=== PATIENT | female | born 1955 | race Caucasian/White ===

== ENCOUNTER 2019-03-05 18:38 | Observation (INO) | payer MEDICAID ==
--- NOTE | 2019-03-05 19:29 | ERPHSYRPT ---
- History of Present Illness Time Seen by Provider: 03/05/19 19:25 Source: patient, family Exam Limitations: no limitations Physician History: pt has noted lower BP recently and they decreased her lasix but has hx of arrythmias - no CP , no SOB no ABd pain - does have MS without change; Timing/Duration: today Activities at Onset: none Quality: other (no pain just low B{P) Location: other (no location no pain) Chest Pain Radiation: no radiation Severity of Pain-Max: none Severity of Pain-Current: none Nitro Today/Relief: no nitro taken today Aspirin Treatment Today: no aspirin today Associated Symptoms: syncope, weakness Prior Chest Pain/Cardiac Workup: no prior chest pain Allergies/Adverse Reactions: amoxicillin trihydrate [From Augmentin] Allergy (Severe, Verified 03/05/19 19:23 ) cefaclor [From Ceclor] Allergy (Severe, Verified 06/08/15 13:57) syncope levofloxacin [From Levaquin] Allergy (Severe, Verified 06/08/15 13:57) syncope potassium clavulanate [From Augmentin] Allergy (Severe, Verified 03/05/19 19:23) Cephalosporins Allergy (Mild, Verified 06/08/15 13:57) doxycycline Allergy (Mild, Verified 06/08/15 13:57) sertraline HCl [From Zoloft] Allergy (Mild, Verified 06/08/15 13:57) sulfamethoxazole [From Bactrim] Allergy (Verified 06/08/15 13:57) trimethoprim [From Bactrim] Allergy (Verified 06/08/15 13:57) Home Medications: Alprazolam 0.5 mg [xanAX 0.5 MG] 0.5 mg PO BID 02/28/13 [History] Armodafinil [Nuvigil] 150 mg PO DAILY PRN PRN 02/28/13 [History] Baclofen 10 mg [Lioresal 10 mg] 10 mg PO DAILY 02/28/13 [History] Cetirizine HCl [Zyrtec] 10 mg PO DAILY 02/28/13 [History] Chlorhexidine Gluconate [Peridex] 15 ml MM HS 02/28/13 [History] Cholecalciferol (Vitamin D3) [Vitamin D] 2,000 unit PO DAILY 02/28/13 [ History] Diltiazem HCl 180 mg [Cardizem CD 180 MG] 180 mg PO HS 02/28/13 [History] Docusate Sodium [Doc-Q-Lace] 200 mg PO HS 02/28/13 [History] Estrogens, Conjugated [Premarin] 0.3 mg PO DAILY 02/28/13 [History] Fluoxetine HCl [Prozac] 80 mg PO DAILY 02/28/13 [History] Gabapentin 800 mg PO BID 02/28/13 [History] Interferon Beta-1A/Albumin [Rebif 22 Mcg/0.5 ml Syringe] 22 mcg SQ 3XW 02/28/13 [History] Magnesium Oxide 400 mg [Mag-Ox 400] 800 mg PO DAILY 02/28/13 [History] Multivitamin W-Minerals/Lutein [Centrum Silver Tablet] 1 each PO DAILY 02/28/13 [History] Baggs-3 Fatty Acids/Fish Oil [Fish Oil 1,000 mg Capsule] 1,000 mg PO DAILY 02/28/13 [History] Oxybutynin Chloride 5 mg [Ditropan 5 MG] 5 mg PO DAILY PRN PRN 02/28/13 [ History] Pyridoxine HCl 100 mg [Vitamin B-6 (Pyridoxine) 100 MG] 100 mg PO DAILY [History] Simvastatin 20Mg [Zocor 20Mg] 20 mg PO HS 02/28/13 [History] Ascorbic Acid [Vitamin C] 1,000 mg PO DAILY 05/26/14 [History] Budesonide/Formoterol Fumarate [Symbicort 160-4.5 Mcg Inhaler] 2 puffs IH BID [History] Calcium Carb & Citrate/Vit D3 [Calcium + Vitamin D3 Caplet] 1 each PO HS [History] Fluconazole [Diflucan] 200 mg PO WEEKLY 05/26/14 [History] Hydrocodon/Ibupr 7.5mg/200mg [Vicoprofen 7.5mg/200mg Tablet] 1 tab PO BIDPRN 05/26/14 [History] Liothyronine Sodium 5 mcg PO DAILY 05/26/14 [History] Metformin HCl 500 mg [Glucophage 500 MG] 500 mg PO .3X/WEEK 05/26/14 [ History] Nystatin/TCN/Hc/Diphenhydram [Char's Magic Mouthwash] 5 ml PO QID PRN PRN 05/26/14 [History] Prednisone 5 mg [Deltasone 5 mg] 5 - 10 mg PO DAILY PRN PRN 05/26/14 [ History] Terconazole Vaginal 45 gm [Terazol 7 VAGINAL] 45 gm VAG DAILY 05/26/14 [ History] Triamterene/Hydrochlorothiazid [Triamterene-Hctz 37.5-25 mg Cp] 1 each PO DAILY PRN PRN 05/26/14 [History] Trimethoprim 100 mg PO HS 10/29/14 [History] Albuterol 8 gm Mdi Hfa [Ventolin Hfa MDI] 1 puff IH Q6H PRN PRN 06/08/15 [ History] Levothyroxine Sodium 137 mcg PO DAILY 06/08/15 [History] Oxycodone HCl 5 mg Ir [Oxy-IR 5 MG] 10 mg PO Q8H PRN PRN 06/08/15 [History ] Tamsulosin HCl 0.4 mg [Flomax 0.4 MG] 0.4 mg PO HS 06/08/15 [History] Hx Tetanus, Diphtheria Vaccination/Date Given: No Hx Influenza Vaccination/Date Given: Yes (2013) Hx Pneumococcal Vaccination/Date Given: No - Review of Systems Constitutional: Weakness, No Fever, No Chills Eyes: No Symptoms Ears, Nose, & Throat: No Symptoms Respiratory: No Cough, No Dyspnea Cardiac: No Chest Pain, No Edema, No Syncope Abdominal/Gastrointestinal: No Abdominal Pain, No Nausea, No Vomiting, No Diarrhea Genitourinary Symptoms: No Dysuria Musculoskeletal: No Back Pain, No Neck Pain Skin: No Rash Neurological: Dizziness, No Focal Weakness, No Sensory Changes Psychological: No Symptoms Endocrine: No Symptoms Hematologic/Lymphatic: No Symptoms Immunological/Allergic: Other (MS) All Other Systems: Reviewed and Negative - Past Medical History Pertinent Past Medical History: Yes Neurological History: Other ENT History: Other Cardiac History: Other Respiratory History: Asthma, COPD Endocrine Medical History: Diabetes Type II Musculoskeletal History: Other GI Medical History: No Pertinent History History: Other Psycho-Social History: Depression Female Reproductive Disorders: No Pertinent History Other Medical History: MS. COPD. Asthma. Pre-DM. Sinus Tachycardia. Multiple medication/abtx allergies - Past Surgical History Past Surgical History: Yes Neuro Surgical History: No Pertinent History Cardiac: No Pertinent History Respiratory: No Pertinent History Gastrointestinal: No Pertinent History Genitourinary: No Pertinent History Musculoskeletal: No Pertinent History Female Surgical History: Hysterectomy Other Surgical History: pt had thyroidectomy also had surgery on stomach where she gave her self shots for ms area had a nodular area that needed removed - Social History Smoking Status: Current every day smoker How long have you smoked: 10 Exposure to second hand smoke: No Drug Use: none Patient Lives Alone: Yes - Nursing Vital Signs Nursing Vital Signs: Initial Vital Signs Temperature 98.7 F 03/05/19 19:23 Pulse Rate 95 H 03/05/19 19:23 Respiratory Rate 16 03/05/19 19:23 Blood Pressure 95/70 03/05/19 19:23 O2 Sat by Pulse Oximetry 95 03/05/19 19:23 Pain Scale Pain Intensity 0 - Physical Exam General Appearance: no apparent distress, alert Eye Exam: PERRL/EOMI, eyes nml inspection Ears, Nose, Throat Exam: normal ENT inspection, moist mucous membranes Neck Exam: normal inspection, non-tender, supple Respiratory Exam: normal breath sounds, lungs clear, No respiratory distress Cardiovascular Exam: regular rate/rhythm, normal heart sounds, No edema Gastrointestinal/Abdomen Exam: soft, No tenderness, No mass Pelvic Exam: deferred Rectal Exam: deferred Back Exam: normal inspection, No CVA tenderness, No vertebral tenderness Extremity Exam: normal inspection, normal range of motion Neurologic Exam: alert, oriented x 3, cooperative, normal mood/affect, nml cerebellar function, sensation nml, No motor deficits Skin Exam: normal color, warm, dry Lymphatic Exam: No adenopathy - Course Nursing assessment & vital signs reviewed: Yes EKG Interpreted by Me: Sinus Rhythm, NORMAL AXIS, Non-specific ST Changes Ordered Tests: Active Orders 24 hr Category Date Time Status Finishing Supervisor STAT Care 03/05/19 19:35 Active EKG-ER Only STAT Care 03/05/19 19:30 Active IV Insertion STAT Care 03/05/19 19:30 Active CHEST 1 VIEW (PORTABLE) Stat Exams 03/05/19 19:35 Completed CBC W DIFF Stat Lab 03/05/19 20:28 Completed CMP Stat Lab 03/05/19 20:28 Completed CULTURE,URINE Stat Lab 03/05/19 23:05 Received D-DIMER QUANTITATION Stat Lab 03/05/19 20:28 Completed Lactic Acid Stat Lab 03/05/19 20:25 Completed Lactic Acid Stat Lab 03/05/19 22:29 Ordered NT PRO BNP Stat Lab 03/05/19 20:28 Completed TROPONIN Q3H Lab 03/05/19 22:45 Ordered TROPONIN Q3H Lab 03/06/19 01:45 Ordered TROPONIN Q3H Lab 03/06/19 04:45 Ordered TROPONIN Q3H Lab 03/06/19 07:45 Ordered TROPONIN Stat Lab 03/05/19 20:28 Completed UA W/RFX UR CULTURE Stat Lab 03/05/19 23:05 Completed Medication Summary Generic Name Dose Route Start Last Admin Trade Name Freq PRN Reason Stop Dose Admin Aztreonam 1 gm in 100 mls @ 200 mls/hr 03/05/19 23:31 Azactam 1 Gm/100 Ml D5w IV 03/06/19 00:00 STAT STA Discontinued Medications Generic Name Dose Route Start Last Admin Trade Name Freq PRN Reason Stop Dose Admin Sodium Chloride 1,000 mls @ 999 mls/hr 03/05/19 19:30 03/05/19 20:01 Sodium Chloride 0.9% 1000 Ml IV 03/05/19 20:30 999 mls/hr .Q1H1M STA Administration Sodium Chloride Confirm 03/05/19 19:56 Sodium Chloride 0.9% 1000 Ml Administered 03/05/19 19:57 Dose 1,000 mls @ ud .ROUTE .K-MED ONE Lab/Rad Data: Laboratory Result Diagrams 03/05/19 20:28 03/05/19 20:28 Laboratory Results 03/05/19 03/05/19 03/05/19 Range/Units 23:05 20:28 20:28 WBC (4.0-10.5) K/mm3 RBC (4.1-5.4) M/mm3 Hgb (12.0-16.0) gm/dl Hct (35-47) % MCV (78-100) fl MCH (26-32) pg MCHC (32-36) g/dl RDW (11.5-14.0) % Plt Count (150-450) K/mm3 MPV (6-9.5) fl Gran % (36.0-66.0) % Eos # (Auto) (0-0.5) Absolute Lymphs (auto) (1.0-4.6) Absolute Monos (auto) (0.0-1.3) Lymphocytes % (24.0-44.0) % Monocytes % (0.0-12.0) % Eosinophils % (0.00-5.0) % Basophils % (0.0-0.4) % Absolute Granulocytes (1.4-6.9) Basophils # (0-0.4) D-Dimer 251 (215-500) ng/mL Sodium 140 (137-145) mmol/L Potassium 4.3 (3.5-5.1) mmol/L Chloride 106 (98-107) mmol/L Carbon Dioxide 20 L (22-30) mmol/L Anion Gap 17.7 H (5-15) MEQ/L BUN 18 H (7-17) mg/dL Creatinine 1.06 H (0.52-1.04) mg/dL Estimated GFR 56.0 ML/MIN Glucose 96 (74-106) mg/dL Lactic Acid (0.4-2.0) Calcium 10.7 H (8.4-10.2) mg/dL Total Bilirubin 0.50 (0.2-1.3) mg/dL AST 55 H (14-36) U/L ALT 27 (0-35) U/L Alkaline Phosphatase 103 (38-126) U/L Troponin I < 0.012 (0.000-0.034) ng/mL NT-Pro-B Natriuret Pep 108 (0-900) pg/mL Serum Total Protein 7.6 (6.3-8.2) g/dL Albumin 4.2 (3.5-5.0) g/dL Urine Color YELLOW (YELLOW) Urine Appearance CLOUDY (CLEAR) Urine pH 6.0 (5-6) Ur Specific [place] 1.013 (1.005-1.025) Urine Protein NEGATIVE (Negative) Urine Ketones NEGATIVE (NEGATIVE) Urine Blood NEGATIVE (0-5) Wili/ul Urine Nitrite POSITIVE (NEGATIVE) Urine Bilirubin NEGATIVE (NEGATIVE) Urine Urobilinogen NEGATIVE (0-1) mg/dL Ur Leukocyte Esterase LARGE (NEGATIVE) Urine WBC (Auto) >100 (0-5) /HPF Urine RBC (Auto) 6-10 (0-2) /HPF U Hyaline Cast (Auto) 11-25 (0-2) /LPF U Epithel Cells (Auto) RARE (FEW) /HPF Urine Bacteria (Auto) FEW (NEGATIVE) /HPF Urine Mucus (Auto) SLIGHT (NEGATIVE) /HPF Urine Yeast (Budding) Many (NEGATIVE) /HPF Urine Culture Reflexed YES (NO) Urine Glucose NEGATIVE (NEGATIVE) mg/dL 03/05/19 03/05/19 Range/Units 20:28 20:25 WBC 8.3 (4.0-10.5) K/mm3 RBC 4.61 (4.1-5.4) M/mm3 Hgb 13.8 (12.0-16.0) gm/dl Hct 42.4 (35-47) % MCV 92.0 (78-100) fl MCH 29.9 (26-32) pg MCHC 32.5 (32-36) g/dl RDW 14.5 H (11.5-14.0) % Plt Count 283 (150-450) K/mm3 MPV 10.7 H (6-9.5) fl Gran % 54.4 (36.0-66.0) % Eos # (Auto) 0.15 (0-0.5) Absolute Lymphs (auto) 2.94 (1.0-4.6) Absolute Monos (auto) 0.67 (0.0-1.3) Lymphocytes % 35.5 (24.0-44.0) % Monocytes % 8.1 (0.0-12.0) % Eosinophils % 1.8 (0.00-5.0) % Basophils % 0.2 (0.0-0.4) % Absolute Granulocytes 4.50 (1.4-6.9) Basophils # 0.02 (0-0.4) D-Dimer (215-500) ng/mL Sodium (137-145) mmol/L Potassium (3.5-5.1) mmol/L Chloride (98-107) mmol/L Carbon Dioxide (22-30) mmol/L Anion Gap (5-15) MEQ/L BUN (7-17) mg/dL Creatinine (0.52-1.04) mg/dL Estimated GFR ML/MIN Glucose (74-106) mg/dL Lactic Acid 2.8 H (0.4-2.0) Calcium (8.4-10.2) mg/dL Total Bilirubin (0.2-1.3) mg/dL AST (14-36) U/L ALT (0-35) U/L Alkaline Phosphatase (38-126) U/L Troponin I (0.000-0.034) ng/mL NT-Pro-B Natriuret Pep (0-900) pg/mL Serum Total Protein (6.3-8.2) g/dL Albumin (3.5-5.0) g/dL Urine Color (YELLOW) Urine Appearance (CLEAR) Urine pH (5-6) Ur Specific [place] (1.005-1.025) Urine Protein (Negative) Urine Ketones (NEGATIVE) Urine Blood (0-5) Wili/ul Urine Nitrite (NEGATIVE) Urine Bilirubin (NEGATIVE) Urine Urobilinogen (0-1) mg/dL Ur Leukocyte Esterase (NEGATIVE) Urine WBC (Auto) (0-5) /HPF Urine RBC (Auto) (0-2) /HPF U Hyaline Cast (Auto) (0-2) /LPF U Epithel Cells (Auto) (FEW) /HPF Urine Bacteria (Auto) (NEGATIVE) /HPF Urine Mucus (Auto) (NEGATIVE) /HPF Urine Yeast (Budding) (NEGATIVE) /HPF Urine Culture Reflexed (NO) Urine Glucose (NEGATIVE) mg/dL - Progress Progress: improved, re-examined Air Movement: good Progress Note: 03/05/19 23:38 discussed with pt and Dr logan covering and will place on obs to begin ab and recheck labs monitor BP, pt appears to have had mild urosepsis, and does not seem to be septic to benefit from the full protocol Blood Culture(s) Obtained: No Antibiotics given: No Discussed with : Adarsh Will see patient in: hospital (observation) Counseled pt/family regarding: lab results, diagnosis, need for follow-up, rad results - Departure Departure Disposition: Observation Clinical Impression: UTI (urinary tract infection), hypotension/near syncope Condition: Good Critical Care Time: Yes Critical Care Time(excluding separately billable procedures): 30-74 minutes ( for IVF bolus and cardiac monitoring to determine cause for hypotension) Referrals: SARA CARRASCO [Primary Care Provider] -
[2019-03-05] MEDS ORDERED: Sodium Chloride 0.9% 1000 ML 1,000 ML IV STA (19:30)
[2019-03-05] MEDS ORDERED: Sodium Chloride 0.9% 1000 ML 1,000 ML ONE (19:56)
[2019-03-05 20:23] LABS: BASOPHIL % 0.2 % (0.0-0.4); Basophil (Absolute #) 0.02 (0-0.4); Eosinophil % 1.8 % (0.00-5.0); Eosinophil (Absolute #) 0.15 (0-0.5); Granulocytes % 54.4 % (36.0-66.0); Hematocrit 42.4 % (35-47); Hemoglobin 13.8 gm/dl (12.0-16.0); Lymphocyte (Absolute #) 2.94 (1.0-4.6); Lymphocytes % 35.5 % (24.0-44.0); Mean Corpuscular Hemoglobin 29.9 pg (26-32); Mean Corpuscular Hgb Concent. 32.5 g/dl (32-36); Mean Platelet Volume 10.7 fl (6-9.5); Monocyte (Absolute #) 0.67 (0.0-1.3); Monocytes % 8.1 % (0.0-12.0); Platelet Count 283 K/mm3 (150-450); Red Blood Count 4.61 M/mm3 (4.1-5.4); Red Cell Distribution Width 14.5 % (11.5-14.0); White Blood Count 8.3 K/mm3 (4.0-10.5)
[2019-03-05 20:29] LABS: Lactic Acid 2.8 (0.4-2.0)
[2019-03-05 20:45] LABS: NT PRO BNP 108 pg/mL (0-900)
[2019-03-05 20:46] LABS: ALBUMIN 4.2 g/dL (3.5-5.0); ALKALINE PHOSPHATASE 103 U/L (38-126); ANION GAP 17.7 MEQ/L (5-15); BLOOD UREA NITROGEN 18 mg/dL (7-17); CHLORIDE 106 mmol/L (98-107); Calcium 10.7 mg/dL (8.4-10.2); Carbon Dioxide 20 mmol/L (22-30); Creatinine 1 1.06 mg/dL (0.52-1.04); Glucose 96 mg/dL (74-106); Potassium 4.3 mmol/L (3.5-5.1); SGOT/AST 55 U/L (14-36); SGPT/ALT 27 U/L (0-35); SODIUM 140 mmol/L (137-145); Total Protein 7.6 g/dL (6.3-8.2)
[2019-03-05 20:47] LABS: TROPONIN < 0.012 ng/mL (0.000-0.034)
--- NOTE | 2019-03-05 20:54 | XRAY ---
Indication: Dizziness. Comparison: July 20, 2018. Portable chest remains clear. Heart is not enlarged. Bony thorax again demonstrates mild degenerative changes, old right clavicle fracture, and proximal right humerus enchondroma. No new/acute findings.
[2019-03-05 23:17] LABS: Appearance CLOUDY (CLEAR); Bacteria FEW /HPF (NEGATIVE); Bilirubin NEGATIVE (NEGATIVE); Blood NEGATIVE Ery/ul (0-5); Epithelial Cells RARE /HPF (FEW); Glucose NEGATIVE (NEGATIVE); Ketones NEGATIVE (NEGATIVE); Leukocyte Esterase LARGE (NEGATIVE); Mucus SLIGHT /HPF (NEGATIVE); Nitrite POSITIVE (NEGATIVE); Protein,Urine Dip NEGATIVE (Negative); Specific Gravity 1.013 (1.005-1.025); Urobilinogen NEGATIVE mg/dL (0-1); WBC >100 /HPF (0-5)
[2019-03-05 23:18] LABS: Budding Yeast Many /HPF (NEGATIVE)
[2019-03-05] MEDS ORDERED: Azactam 1 GM/100 ML D5W 1 GM/100 ML IVPB IV STA (23:31)
[2019-03-06] MEDS ORDERED: Zofran 4 MG/2 ML VIAL IV PRN (00:36)
[2019-03-06] MEDS ORDERED: TYLENOL 325 MG PO PRN (00:36)
[2019-03-06] MEDS ORDERED: NovoLIN R SQ PRN (00:36)
[2019-03-06] MEDS: Nicoderm CQ 21 MG TOP SCH (01:37)
[2019-03-06] MEDS: Sodium Chloride 0.9% 1000 ML 1,000 ML IV SCH ×3 (01:38→22:42)
[2019-03-06 05:42] LABS: BASOPHIL % 0.3 % (0.0-0.4); Basophil (Absolute #) 0.02 (0-0.4); Eosinophil % 2.8 % (0.00-5.0); Eosinophil (Absolute #) 0.19 (0-0.5); Granulocyte Absolute (ANC) 2.57 (1.4-6.9); Granulocytes % 37.8 % (36.0-66.0); Hematocrit 37.1 % (35-47); Hemoglobin 12.1 gm/dl (12.0-16.0); Lymphocyte (Absolute #) 3.34 (1.0-4.6); Mean Cell Volume 93.9 fl (78-100); Mean Corpuscular Hemoglobin 30.6 pg (26-32); Mean Corpuscular Hgb Concent. 32.6 g/dl (32-36); Mean Platelet Volume 10.4 fl (6-9.5); Monocyte (Absolute #) 0.69 (0.0-1.3); Monocytes % 10.1 % (0.0-12.0); Platelet Count 232 K/mm3 (150-450); Red Blood Count 3.95 M/mm3 (4.1-5.4); Red Cell Distribution Width 14.3 % (11.5-14.0); White Blood Count 6.8 K/mm3 (4.0-10.5)
[2019-03-06] MEDS ORDERED: Azactam 1 GM/100 ML D5W 1 GM/100 ML IVPB IV SCH (06:00)
[2019-03-06 06:01] LABS: ALBUMIN 3.3 g/dL (3.5-5.0); Calcium 9.6 mg/dL (8.4-10.2); Carbon Dioxide 25 mmol/L (22-30); Creatinine 1 0.79 mg/dL (0.52-1.04); Glucose 92 mg/dL (74-106); SGPT/ALT 22 U/L (0-35); SODIUM 140 mmol/L (137-145); Total Protein 6.2 g/dL (6.3-8.2)
[2019-03-06 06:02] LABS: ALKALINE PHOSPHATASE 79 U/L (38-126); CHLORIDE 109 mmol/L (98-107); SGOT/AST 43 U/L (14-36)
[2019-03-06 06:05] LABS: BLOOD UREA NITROGEN 16 mg/dL (7-17)
[2019-03-06 06:10] LABS: ANION GAP 10 MEQ/L (5-15)
[2019-03-06] MEDS ORDERED: PROVENTIL COMMON CANISTER IH PRN (07:00)
[2019-03-06] MEDS: Advair Hfa 230/21 Mcg COMMON CANISTER IH SCH ×2 (07:30→20:03)
[2019-03-06] MEDS: DUONEB 0.5-3 MG/3 ml Neb IH SCH ×3 (07:30→20:02)
[2019-03-06] MEDS: Azactam 1 GM/100 ML D5W 1 GM/100 ML IVPB IV SCH ×3 (08:15→23:30)
[2019-03-06] MEDS ORDERED: Mobic 7.5 MG PO SCH (10:00)
[2019-03-06] MEDS ORDERED: Ventolin Hfa MDI IH PRN (10:11)
[2019-03-06] MEDS ORDERED: Norco 10/325 MG Tablet PO PRN (10:11)
[2019-03-06] MEDS ORDERED: ALCAFTADINE OP PRN (10:11)
[2019-03-06] MEDS ORDERED: Atrovent HFA MDI IH PRN (10:11)
[2019-03-06] MEDS ORDERED: MEDICATION INTERVENTION MC SCH ×4 (11:15)
[2019-03-06] MEDS: CLARITIN 10 MG PO SCH (11:28)
[2019-03-06] MEDS: DELTASONE 5 MG PO SCH (11:28)
[2019-03-06] MEDS: Pepcid 20 MG PO SCH ×2 (11:29→22:44)
[2019-03-06] MEDS: Glucophage 500 MG PO SCH (11:29)
[2019-03-06] MEDS: Flonase NASAL NS SCH (11:29)
[2019-03-06] MEDS: Ditropan 5 MG PO SCH ×2 (11:29→22:44)
[2019-03-06] MEDS: SYNTHROID 150 MCG PO SCH (11:30)
[2019-03-06] MEDS: Singulair 10 MG PO SCH (11:30)
[2019-03-06] MEDS: Norco 10/325 MG Tablet PO PRN ×2 (12:33→19:52)
[2019-03-06] MEDS ORDERED: NON-FORMULARY ITEM (Budesonide/Formoterol Fumarate [Symbicort 160-4.5 Mcg Inhaler] 2 PUFFS IH SCH (22:00)
[2019-03-06] MEDS ORDERED: RANITIDINE HCL 150 MG PO SCH (22:00)
[2019-03-06] MEDS: Colace 100 MG PO SCH (22:44)
[2019-03-06] MEDS: ZOCOR 20MG PO SCH (22:44)
[2019-03-07] MEDS: DUONEB 0.5-3 MG/3 ml Neb IH SCH ×4 (00:16→19:21)
[2019-03-07] MEDS: Nicoderm CQ 21 MG TOP SCH (03:57)
[2019-03-07] MEDS: Advair Hfa 230/21 Mcg COMMON CANISTER IH SCH ×2 (07:45→19:21)
[2019-03-07] MEDS: Azactam 1 GM/100 ML D5W 1 GM/100 ML IVPB IV SCH ×3 (07:49→23:24)
[2019-03-07] MEDS: Glucophage 500 MG PO SCH (07:50)
[2019-03-07] MEDS ORDERED: FLUOXETINE HCL 80 MG PO SCH (10:00)
[2019-03-07] MEDS ORDERED: ESTROGENS CONJUGATED INTRAVAGIN SCH (10:00)
[2019-03-07] MEDS ORDERED: LIOTHYRONINE SODIUM 5 MCG PO SCH (10:00)
[2019-03-07] MEDS ORDERED: ESTROGENS CONJUGATED 0.3 MG PO SCH (10:00)
[2019-03-07] MEDS ORDERED: NON-FORMULARY ITEM (Cetirizine Hcl [Zyrtec] 10 MG) PO SCH (10:00)
[2019-03-07] MEDS ORDERED: NON-FORMULARY ITEM (Potassium Chloride [K-Dur] 20 MEQ) PO SCH (10:00)
[2019-03-07] MEDS: Sodium Chloride 0.9% 1000 ML 1,000 ML IV SCH ×2 (10:10→20:15)
[2019-03-07] MEDS: Flonase NASAL NS SCH (10:14)
[2019-03-07] MEDS: Prozac 20 MG PO SCH (10:15)
[2019-03-07] MEDS: Klor Con 10 MEQ PO SCH (10:16)
[2019-03-07] MEDS: SYNTHROID 150 MCG PO SCH (10:16)
[2019-03-07] MEDS: Pepcid 20 MG PO SCH ×2 (10:17→21:48)
[2019-03-07] MEDS: Ditropan 5 MG PO SCH ×2 (10:17→21:48)
[2019-03-07] MEDS: CLARITIN 10 MG PO SCH (10:17)
[2019-03-07] MEDS: Singulair 10 MG PO SCH (10:18)
[2019-03-07] MEDS: DELTASONE 5 MG PO SCH (10:18)
--- NOTE | 2019-03-07 11:34 | PCM.NOTE ---
Date and Time: 03/07/19 1130 Subjective Assessment: Pt is feeling better. Heavenly po. - Review of Systems Constitutional: No Fever Respiratory: No Cough Abdominal/Gastrointestinal: No Vomiting Objective Exam General Appearance: no apparent distress, alert Neurologic Exam: oriented x 3, cooperative Skin Exam: normal color, warm, dry, No rash Ears, Nose, Throat Exam: moist mucous membranes Respiratory Exam: diminished breath sounds (good air exchange), prolonged expirations, No crackles/rales, No rhonchi, No wheezing Cardiovascular Exam: regular rate/rhythm, normal heart sounds, No murmur Gastrointestinal/Abdomen Exam: soft, normal bowel sounds, No tenderness, No distention, No mass, No guarding, No rebound Extremity Exam: normal inspection, No pedal edema, No swelling Back Exam: normal inspection, No rash OBJECTIVE DATA Vital Signs: Vital Signs - 24 hr Temp Pulse Resp BP Pulse Ox 03/07/19 07:45 86 18 96 03/07/19 07:34 97.8 F 67 20 126/60 96 03/07/19 04:10 98.7 F 71 18 144/69 97 03/07/19 00:25 98.6 F 98 H 19 137/74 97 03/07/19 00:18 74 24 96 03/06/19 20:20 98.9 F 84 26 H 127/65 95 03/06/19 20:04 68 20 97 03/06/19 15:58 98 F 68 20 126/80 98 03/06/19 14:03 68 18 97 Pain Assessment - Last Documented Pain Intensity 0 Pain Scale Used 0-10 Pain Scale Intake and Output: Intake & Output 03/04/19 03/05/19 03/06/19 03/07/19 11:59 11:59 11:59 11:59 Intake Total 687 4423 Output Total 450 4700 Balance 237 -277 Weight 73.5 kg 80.2 kg Lab Results: Accuchecks Date 03/06/19 Time 22:00 Accucheck Value: 101 Accucheck Value: 106 Accucheck Value: 157 Radiology Exams: Radiology Procedures Category Date Time Status CHEST 1 VIEW (PORTABLE) Stat Exams 03/05/19 19:35 Completed Assessment/Plan (1) UTI (urinary tract infection) Current Visit: Yes Status: Acute Qualifiers: Urinary tract infection type: acute cystitis Hematuria presence: without hematuria Qualified Code(s): N30.00 - Acute cystitis without hematuria Assessment & Plan: On day #2 of aztreonam. Advised would like her to get 3 days of IV antibiotics. Tomorrow will decide which antibiotic is best - pt with multiple allergies to antibiotics. Culture is negative so far. Code(s): N39.0 - URINARY TRACT INFECTION, SITE NOT SPECIFIED (2) Hypotension Current Visit: Yes Status: Resolved Qualifiers: Hypotension type: other hypotension type Qualified Code(s): I95.89 - Other hypotension Assessment & Plan: Likely related to early urosepsis. BP 120s-130s systolic since admission and treatment. Code(s): I95.9 - HYPOTENSION, UNSPECIFIED (3) COPD (chronic obstructive pulmonary disease) Current Visit: No Status: Chronic Qualifiers: COPD type: chronic bronchitis Assessment & Plan: stable currently, without exacerbation. (4) DVT prophylaxis Current Visit: Yes Status: Acute Assessment & Plan: Start lovenox 40mg SQ daily. Code(s): Z29.9 - ENCOUNTER FOR PROPHYLACTIC MEASURES, UNSPECIFIED
[2019-03-07] MEDS: ENOXAPARIN SODIUM SQ SCH (12:26)
[2019-03-07] MEDS: Norco 10/325 MG Tablet PO PRN ×2 (14:04→20:09)
[2019-03-07] MEDS: Colace 100 MG PO SCH (21:48)
[2019-03-07] MEDS: ZOCOR 20MG PO SCH (21:49)
[2019-03-08] MEDS: DUONEB 0.5-3 MG/3 ml Neb IH SCH ×2 (03:18→07:40)
[2019-03-08] MEDS: Nicoderm CQ 21 MG TOP SCH (06:50)
[2019-03-08] MEDS: Sodium Chloride 0.9% 1000 ML 1,000 ML IV SCH (06:50)
[2019-03-08] MEDS: Advair Hfa 230/21 Mcg COMMON CANISTER IH SCH (07:41)
--- NOTE | 2019-03-08 08:57 | PCM.DS ---
Discharge Summary Date of Admission: 03/06/19 00:31 Admitting Physician: SARA CARRASCO Primary Care Provider: SARA CARRASCO Allergies Allergies amoxicillin trihydrate [From Augmentin] Allergy (Severe, Verified 03/06/19 02:06 ) cefaclor [From Ceclor] Allergy (Severe, Verified 03/06/19 02:06) syncope levofloxacin [From Levaquin] Allergy (Severe, Verified 03/06/19 02:06) syncope potassium clavulanate [From Augmentin] Allergy (Severe, Verified 03/06/19 02:06) Cephalosporins Allergy (Mild, Verified 03/06/19 02:06) doxycycline Allergy (Mild, Verified 03/06/19 02:06) sertraline HCl [From Zoloft] Allergy (Mild, Verified 03/06/19 02:06) sulfamethoxazole [From Bactrim] Allergy (Verified 03/06/19 02:06) trimethoprim [From Bactrim] Allergy (Verified 03/06/19 02:06) Hospital Summary - Hospital Course Hospital Course: Pt is 63 yo female with MS, COPD, and DM who was admitted through ER with hypotension and found to have UTI. Her BP stabilized early with treatment. She was started on aztreonam since she has multiple antibiotic allergies. Her urine culture is growing gram negative rods. She will finish her 3rd day of aztreonam today then be discharged to home on bactrim - this is listed on her allergy list, but we believe she recently had bactrim and took each pill with a benadryl and did fine. Will have her finish 7d total of antibiotc. She is tolerating po well, getting up out of bed without assistance, and ready to discharge to home. - Vitals & Intake/Output Vital Signs: Vital Signs Temperature 98.4 F 03/08/19 07:35 Pulse Rate 74 03/08/19 07:41 Respiratory Rate 12 03/08/19 07:41 Blood Pressure 146/79 03/08/19 07:35 O2 Sat by Pulse Oximetry 96 03/08/19 07:41 Intake & Output: Intake & Output 03/05/19 03/06/19 03/07/19 03/08/19 11:59 11:59 11:59 11:59 Intake Total 464 9980 4056 Output Total 970 8820 9581 Balance 020 -845 -806 Weight 73.5 kg 80.2 kg 73.3 kg - Lab Result Diagrams: 03/06/19 05:20 03/06/19 05:20 Lab Results-Last 24 Hrs: Accuchecks Date 03/08/19 Date 03/08/19 Time 07:30 Time 22:00 Accucheck Value: 83 Accucheck Value: 106 Accucheck Value: 104 Accucheck Value: 105 Micro Results-Entire Visit: Microbiology 03/05/19 23:05 Urine Culture - Preliminary Clean Catch Midstream GRAM NEGATIVE ID AND SENSITIVITY PENDING Accuchecks Date 03/08/19 Date 03/08/19 Time 07:30 Time 22:00 Accucheck Value: 83 Accucheck Value: 106 Accucheck Value: 104 Accucheck Value: 105 - Procedures and Test Procedures and Tests throughout Hospitalization: Therapy Orders & Screens 03/06/19 01:31 Smoking Cessation Education Comment: Diagnosis: UTI with Hypotension/near syncope Smoking Status: Current every day smoker How long have you smoked: 43 years Have you smoked in the past 12 months: Yes Approximately how many cigarettes per day: 1/2 pk Do you dip or chew tobacco: No 03/06/19 03:44 Respiratory Therapy Assessment DAILY Comment: Diagnosis: UTI with Hypotension/near syncope 03/06/19 09:30 Peak Expiratory Flow Rate ONCE Comment: Reason For Exam: Diagnosis: UTI with Hypotension/near syncope Discharge Exam General Appearance: no apparent distress, alert Neurologic Exam: oriented x 3, cooperative Eye Exam: eyes nml inspection Ears, Nose, Throat Exam: moist mucous membranes Respiratory Exam: normal breath sounds, lungs clear, prolonged expirations, wheezing (faint, scattered), No crackles/rales, No rhonchi Cardiovascular Exam: regular rate/rhythm, normal heart sounds, No murmur Gastrointestinal/Abdomen Exam: soft, normal bowel sounds, No tenderness, No distention, No mass, No guarding, No rebound Back Exam: normal inspection, No rash Extremity Exam: normal inspection, No pedal edema, No swelling Skin Exam: normal color, warm, dry, No rash Final Diagnosis/Problem List - Final Discharge Diagnosis/Problem (1) UTI (urinary tract infection) Current Visit: Yes Status: Acute Assessment & Plan: Finishing 3d of aztreonam today; will send home on 4d of bactrim. This is on her allergy list, but we believe she's taken it recently with mikalyl with no issues. Any sign of a rash and she needs to stop the med and contact us right away. Code(s): N39.0 - URINARY TRACT INFECTION, SITE NOT SPECIFIED (2) COPD (chronic obstructive pulmonary disease) Current Visit: No Status: Chronic (3) DVT prophylaxis Current Visit: Yes Status: Acute Code(s): Z29.9 - ENCOUNTER FOR PROPHYLACTIC MEASURES, UNSPECIFIED - Discharge Disposition: Home, Self-Care Condition: Good Prescriptions: New Smz/Tmp Ds Tablet [Bactrim Ds Tablet] 1 tab PO BID #8 tablet Continue Baclofen 10 mg [Lioresal 10 mg] 10 mg PO DAILY Docusate Sodium [Doc-Q-Lace] 200 mg PO HS Cetirizine HCl [Zyrtec] 10 mg PO DAILY Gabapentin 800 mg PO BID Fluoxetine HCl [Prozac] 80 mg PO DAILY Magnesium Oxide 400 mg [Mag-Ox 400] 800 mg PO DAILY Simvastatin 20Mg [Zocor 20Mg] 20 mg PO HS Estrogens, Conjugated [Premarin] 0.3 mg PO DAILY Oxybutynin Chloride 5 mg [Ditropan 5 MG] 5 mg PO BID Liothyronine Sodium 5 mcg PO DAILY Metformin HCl 500 mg [Glucophage 500 MG] 500 mg PO DAILY Budesonide/Formoterol Fumarate [Symbicort 160-4.5 Mcg Inhaler] 2 puffs IH BID Fluconazole [Diflucan] 200 mg PO WEEKLY Tamsulosin HCl 0.4 mg [Flomax 0.4 MG] 0.8 mg PO HS Estrogens,Conjugated [Premarin Vaginal Cream] 1 applic INTRAVAGIN DAILY Interferon Beta-1A/Albumin [Rebif Rebidose 22 Mcg/0.5 ml] 0.5 ml SQ UD Potassium Chloride [K-Dur] 20 meq PO DAILY predniSONE [Prednisone] 2.5 mg PO DAILY Albuterol Sulfate [Albuterol Sulfate Hfa] 2 puffs IH Q4HPRN PRN PRN Reason: Shortness Of Breath/Wheezing Ipratropium [place] Hfa [Atrovent HFA MDI] 2 puff IH Q4HPRN PRN PRN Reason: Shortness Of Breath/Wheezing Fluticasone Propionate [Flonase NASAL] 1 spray IH DAILY Furosemide 20 mg [Lasix 20 mg] 20 mg PO BID Meloxicam 7.5 mg [Mobic 7.5 MG] 7.5 mg PO BID Montelukast Sodium 10 mg PO DAILY Ranitidine HCl [Taladine] 150 mg PO BID Hydrocodone/Acetaminophen [Hydrocodone-Acetamin 10-325 mg] 1 each PO Q6HPRN PRN PRN Reason: Moderate To Severe Pain Levothyroxine Sodium 150 mcg PO DAILY Alcaftadine [Lastacaft] 1 drop OP DAILY PRN PRN PRN Reason: Allergies Discontinued Trimethoprim 100 mg PO HS Additional Instructions: Stop taking potassium while on bactrim. Take bactrim with benadryl. If any rash develops while taking bactrim, stop it and contact your doctor ELY. Will send you home with a prescription for an epi pen - please have one available at all times in case of difficulty breathing due to allergic reaction. Follow up with: SARA CARRASCO [Primary Care Provider] - 03/15/19 10:15 am
[2019-03-08] MEDS: Azactam 1 GM/100 ML D5W 1 GM/100 ML IVPB IV SCH (09:10)
[2019-03-08] MEDS: Glucophage 500 MG PO SCH (09:19)
--- NOTE | 2019-03-08 09:33 | HP ---
CHIEF COMPLAINT: Weakness. HISTORY OF PRESENT ILLNESS: The patient reports that she had been feeling ill over the past couple of weeks. She was found in the emergency room to be somewhat hypotensive. She apparently had trouble with urinary tract infections in the past but apparently is allergic to all oral antibiotics that might treat urinary tract infection. PAST MEDICAL/SURGICAL HISTORY: Diabetes mellitus type 2. Chronic obstructive pulmonary disease. Depression. Asthma. Tachycardia. HOME MEDICATIONS: Extensive. Albuterol, Baclofen, Symbicort, Zyrtec, docusate sodium, Premarin p.o. and intravaginal cream, Diflucan, fluoxetine 80 mg a day, Flonase nasal spray, Lasix, gabapentin 800 mg b.i.d., hydrocodone 10/325, alpha anaferon, Atrovent, levothyroxine, magnesium, meloxicam, Metformin, Montelukast, oxybutynin, potassium, prednisone, ranitidine, Simvastatin, Tamsulosin and apparently even though she reports an allergy to the trimethoprim, apparently she takes trimethoprim 100 mg at night which reported attended use was for sleep but apparently this is likely a suppressive antibiotic for urinary tract infections. ALLERGIES: AMOXICILLIN, CEFACLOR, LEVOFLOXACIN, CEPHALOSPORIN, DOXYCYCLINE, SULFOMETOXIZOLE, TRIMETHOPRIM, ZOLOFT. PHYSICAL EXAMINATION: The patient's vital signs on admission showed her temperature to be 97.8F, pulse 95, respiratory rate 16, blood pressure 95/70. O2 saturation 95% on room air. HEENT: Normocephalic, atraumatic. Pupils equal round reactive to light. Extraocular movements intact. Oropharynx is pink and moist. NECK: Supple without lymphadenopathy, thyromegaly or JVD. CHEST: Clear to auscultation. HEART: Regular rate and rhythm. ABDOMEN: Soft without palpable masses. EXTREMITIES: Without cyanosis, clubbing or edema. NEUROLOGIC: The patient is alert and oriented x3. She is currently sitting up on the side of the bed and appears to be in no distress whatsoever. LAB DATA AND TESTS: Showed troponin less than 0.012. Glucose 92, BUN 16, creatinine 0.79. Electrolytes were normal. Liver enzymes were normal. Troponins less than 0.012 on second occasion. Her white count 6,800, hemoglobin 12.1, PLT count 232,000. Lactic acid 4.4 at 0500 hours on 03/06/2019. D-dimer 251. Pro-BNP normal at 108. Initial lactic acid somewhat high at 2.8. UA with specific gravity 1.013 and greater than 100 white blood cells per high power field and was positive for nitrite. Chest x-ray was essentially normal. ASSESSMENT: A patient with hypertension likely due to medication and dehydration and what appears to be a urinary tract infection. Urine culture has been sent. The patient has been started on Azactam as she is allergic to all the potential oral antibiotics for treatment of urinary tract infection with. She has been given IV fluids and she has improved with this thus far. We will continue the IV Azactam presently pending culture reports. She is to continue IV fluid hydration and will give her oral fluid hydration as well. In the interim will check her orthostatic vital signs otherwise.
[2019-03-08 11:27] VITALS: BP 149/75; PULSE 71; O2SAT 97
[2019-03-08] MEDS: DELTASONE 5 MG PO SCH (12:14)
[2019-03-08] MEDS: ENOXAPARIN SODIUM SQ SCH (12:14)
[2019-03-08] MEDS: Flonase NASAL NS SCH (12:14)
[2019-03-08] MEDS: Ditropan 5 MG PO SCH (12:14)
[2019-03-08] MEDS: CLARITIN 10 MG PO SCH (12:14)
[2019-03-08] MEDS: Singulair 10 MG PO SCH (12:15)
[2019-03-08] MEDS: Klor Con 10 MEQ PO SCH (12:15)
[2019-03-08] MEDS: SYNTHROID 150 MCG PO SCH (12:15)
[2019-03-08] MEDS: Prozac 20 MG PO SCH (12:15)
[2019-03-08] MEDS: Pepcid 20 MG PO SCH (12:15)
[2019-03-11] MEDS ORDERED: FLUCONAZOLE 200 MG PO SCH (10:00)
== END 2019-03-08 12:20 | disposition home or self-care (01) ==
LOC: ED 18:38 → MED SURG 03-06 00:31 → EEVIPCON 03-06 00:31
PROVIDERS: ADMIT Family Medicine; ATTEND Family Medicine
DX: N39.0 Urinary tract infection, site not specified (principal); J44.9 Chronic obstructive pulmonary disease, unspecified; E11.9 Type 2 diabetes mellitus without complications; I95.9 Hypotension, unspecified; E86.0 Dehydration; R53.1 Weakness; G35 Multiple sclerosis; Z79.899 Other long term (current) drug therapy
CPT/HCPCS: 36000; 36415; 71045; 80053; 81001; 82962; 83036; 83605; 83880; 84484; 85025; 85379; 87077; 87086; 87186; 93005; 93041; 93268; 94150; 94640; 94760; 94762; 96360; 96365; 99285; 99291; G0378; A9270-GY

== ENCOUNTER 2019-03-24 16:15 | Emergency (ER) | payer MEDICAID ==
[2019-03-24 16:28] VITALS: O2SAT 94
[2019-03-24] MEDS ORDERED: MORPHINE SULFATE 4 MG INJ IM ONE (16:41)
[2019-03-24] MEDS ORDERED: ZOFRAN ODT 4 MG PO ONE (16:41)
[2019-03-24] MEDS ORDERED: ZOFRAN ODT 4 MG ONE (16:43)
[2019-03-24] MEDS ORDERED: MORPHINE SULFATE 4 MG INJ ONE (16:44)
--- NOTE | 2019-03-24 16:48 | ERPHSYRPT ---
- History of Present Illness Time Seen by Provider: 03/24/19 16:35 Source: patient Exam Limitations: no limitations Patient Subjective Stated Complaint: Pt states "I rolled my ankle and I heard something pop. I am on steroids." Triage Nursing Assessment: Pt alert and oriented X 3, skin pwd. PT sitting on a walker chair upon arrival. Pt left ankle swollen laterally, pt unable to put weight on her left ankle. CSM X 4 Physician History: 63-year-old white female with history of diabetes type 2, asthma, COPD, depression, MS arrives with complaint of pain in her left ankle for approximately 1-1/2 hours. According to the patient, she was sitting on the toilet she got up her left foot felt numb and she twisted her ankle. She is complaining of pain in the left lateral ankle she states she heard a pop she has swelling to the left lateral ankle. Past medical history includes diabetes, asthma, COPD, depression, multiple sclerosis, sinus tachycardia, multiple medication allergies. Past surgical history includes hysterectomy thyroidectomy, Method of Injury: twisted Occurred: just prior to arrival (1-1/2 hours prior to arrival) Quality: constant Severity of Pain-Max: moderate Severity of Pain-Current: moderate Lower Extremities Pain: ankle: left Modifying Factors: Improves With: movement Associated Symptoms: popping sensation (patient heard a pop when she twisted her ankle) Allergies/Adverse Reactions: amoxicillin trihydrate [From Augmentin] Allergy (Severe, Verified 03/06/19 02:06 ) cefaclor [From Ceclor] Allergy (Severe, Verified 03/06/19 02:06) syncope levofloxacin [From Levaquin] Allergy (Severe, Verified 03/06/19 02:06) syncope potassium clavulanate [From Augmentin] Allergy (Severe, Verified 03/06/19 02:06) Cephalosporins Allergy (Mild, Verified 03/06/19 02:06) doxycycline Allergy (Mild, Verified 03/06/19 02:06) sertraline HCl [From Zoloft] Allergy (Mild, Verified 03/06/19 02:06) sulfamethoxazole [From Bactrim] Allergy (Verified 03/06/19 02:06) trimethoprim [From Bactrim] Allergy (Verified 03/06/19 02:06) Home Medications: Baclofen 10 mg [Lioresal 10 mg] 10 mg PO DAILY 05/20/13 [History] Cetirizine HCl [Zyrtec] 10 mg PO DAILY 02/28/13 [History] Docusate Sodium [Doc-Q-Lace] 200 mg PO HS 02/28/13 [History] Estrogens, Conjugated [Premarin] 0.3 mg PO DAILY 02/28/13 [History] Fluoxetine HCl [Prozac] 80 mg PO DAILY 02/28/13 [History] Gabapentin 800 mg PO BID 02/28/13 [History] Magnesium Oxide 400 mg [Mag-Ox 400] 800 mg PO DAILY 02/28/13 [History] Oxybutynin Chloride 5 mg [Ditropan 5 MG] 5 mg PO BID 02/28/13 [History] Simvastatin 20Mg [Zocor 20Mg] 20 mg PO HS 02/28/13 [History] Budesonide/Formoterol Fumarate [Symbicort 160-4.5 Mcg Inhaler] 2 puffs IH BID [History] Fluconazole [Diflucan] 200 mg PO WEEKLY 05/26/14 [History] Liothyronine Sodium 5 mcg PO DAILY 05/26/14 [History] Metformin HCl 500 mg [Glucophage 500 MG] 500 mg PO DAILY 05/26/14 [History ] Tamsulosin HCl 0.4 mg [Flomax 0.4 MG] 0.8 mg PO HS 06/08/15 [History] Albuterol Sulfate [Albuterol Sulfate Hfa] 2 puffs IH Q4HPRN PRN 03/06/19 [ History] Alcaftadine [Lastacaft] 1 drop OP DAILY PRN PRN 03/06/19 [History] Estrogens,Conjugated [Premarin Vaginal Cream] 1 applic INTRAVAGIN DAILY [History] Fluticasone Propionate [Flonase NASAL] 1 spray IH DAILY 03/06/19 [History] Furosemide 20 mg [Lasix 20 mg] 20 mg PO BID 03/06/19 [History] Hydrocodone/Acetaminophen [Hydrocodone-Acetamin 10-325 mg] 1 each PO Q6HPRN PRN 03/06/19 [History] Interferon Beta-1A/Albumin [Rebif Rebidose 22 Mcg/0.5 ml] 0.5 ml SQ UD 03/06/19 [History] Ipratropium Orgas Hfa [Atrovent HFA MDI] 2 puff IH Q4HPRN PRN 03/06/19 [ History] Levothyroxine Sodium 150 mcg PO DAILY 03/06/19 [History] Meloxicam 7.5 mg [Mobic 7.5 MG] 7.5 mg PO BID 03/06/19 [History] Montelukast Sodium 10 mg PO DAILY 03/06/19 [History] Potassium Chloride [K-Dur] 20 meq PO DAILY 03/06/19 [History] Ranitidine HCl [Taladine] 150 mg PO BID 03/06/19 [History] predniSONE [Prednisone] 2.5 mg PO DAILY 03/06/19 [History] Hx Tetanus, Diphtheria Vaccination/Date Given: Yes Hx Influenza Vaccination/Date Given: No Hx Pneumococcal Vaccination/Date Given: No Immunizations Up to Date: Yes - Review of Systems Constitutional: No Fever, No Chills Eyes: No Symptoms Ears, Nose, & Throat: No Symptoms Respiratory: No Cough, No Dyspnea Cardiac: No Chest Pain, No Edema, No Syncope Abdominal/Gastrointestinal: No Abdominal Pain, No Nausea, No Vomiting, No Diarrhea Genitourinary Symptoms: No Dysuria Musculoskeletal: Injury (left ankle injury), Other (pain left lateral ankle) Skin: No Rash Neurological: No Dizziness, No Focal Weakness, No Sensory Changes Psychological: No Symptoms Endocrine: No Symptoms All Other Systems: Reviewed and Negative - Past Medical History Pertinent Past Medical History: Yes Neurological History: Other ENT History: Other Cardiac History: Other Respiratory History: Asthma, COPD Endocrine Medical History: Diabetes Type II Musculoskeletal History: Other GI Medical History: No Pertinent History History: Other Psycho-Social History: Depression Female Reproductive Disorders: No Pertinent History Other Medical History: MS. COPD. Asthma. Sinus Tachycardia. Multiple medication/abtx allergies - Past Surgical History Past Surgical History: Yes Neuro Surgical History: No Pertinent History Cardiac: No Pertinent History Respiratory: No Pertinent History Gastrointestinal: No Pertinent History Genitourinary: No Pertinent History Musculoskeletal: No Pertinent History Female Surgical History: Hysterectomy Other Surgical History: pt had thyroidectomy also had surgery on stomach where she gave her self shots for ms area had a nodular area that needed removed - Social History Smoking Status: Current every day smoker How long have you smoked: years Exposure to second hand smoke: Yes Drug Use: none Patient Lives Alone: Yes - Female History Hx Now: No - Nursing Vital Signs Nursing Vital Signs: Initial Vital Signs Temperature 98.4 F 03/24/19 16:23 Pulse Rate 76 03/24/19 16:23 Respiratory Rate 18 03/24/19 16:23 Blood Pressure 118/67 03/24/19 16:23 O2 Sat by Pulse Oximetry 94 L 03/24/19 16:23 Pain Scale Pain Intensity 5 - Physical Exam General Appearance: mild distress, alert Eyes, Ears, Nose, Throat Exam: moist mucous membranes Neck Exam: non-tender, supple Cardiovascular/Respiratory Exam: chest non-tender, normal breath sounds, regular rate/rhythm, no respiratory distress Gastrointestinal/Abdominal Exam: non-tender, guarding Back Exam: normal inspection, No vertebral tenderness Hips Exam: bilateral: non-tender, normal inspection, normal range of motion, no evidence of injury Legs Exam: bilateral leg: non-tender, normal inspection, normal range of motion , no evidence of injury Knees Exam: bilateral knee: non-tender, normal inspection, normal range of motion, no evidence of injury Ankle Exam: right ankle: non-tender, normal inspection, normal range of motion, left ankle: other (left ankle tender with palpation laterally, moderate edema overlying left lateral malleolus. Decreased range of motion left ankle secondary to pain. Left dorsal pedal posterior tibial pulses intact two over four.good capillary refill all left toessensation intact all of toes full range of motion to all toes) Foot Exam: bilateral foot: non-tender, normal inspection, normal range of motion , no evidence of injury DTR - Lower Extremities Exam: ankle (R): 2+, ankle (L): 2+ Neuro/Tendon Exam: normal sensation, normal motor functions Mental Status Exam: alert, oriented x 3, cooperative Skin Exam: normal color, warm, dry SpO2 Interpretation: normal (94%) SpO2: 94 - Course Nursing assessment & vital signs reviewed: Yes - Radiology Exams Left Ankle X-ray Interpretation: Discussed w/ radiologist (x-ray left ankle: New nondisplaced cortical fracture tip of lateral malleolus with anterior lateral soft tissue swelling. Stable heel spurs. No other bony, articular, or soft tissue abnormalities.) Ordered Tests: Active Orders 24 hr Category Date Time Status Splint STAT Care 03/24/19 17:05 Active ANKLE (3 VIEWS) Stat Exams 03/24/19 16:42 Taken Medication Summary Discontinued Medications Generic Name Dose Route Start Last Admin Trade Name Suzette PRN Reason Stop Dose Admin Morphine Sulfate 4 mg 03/24/19 16:41 03/24/19 16:45 Morphine Sulfate 4 Mg Inj IM 03/24/19 16:42 4 mg STAT ONE Administration Morphine Sulfate Confirm 03/24/19 16:44 Morphine Sulfate 4 Mg Inj Administered 03/24/19 16:45 Dose 4 mg .ROUTE .STK-MED ONE Ondansetron HCl 4 mg 03/24/19 16:41 03/24/19 16:45 Zofran Odt 4 Mg PO 03/24/19 16:42 4 mg STAT ONE Administration Ondansetron HCl Confirm 03/24/19 16:43 Zofran Odt 4 Mg Administered 03/24/19 16:44 Dose 4 mg .ROUTE .STK-MED ONE - Progress Progress: improved Progress Note: 03/24/19 17:06 63-year-old white female arrives with complaint of pain in her left lateral ankle with swelling after twisting her ankle prior to arrival is patient states she heard a pop. Patient with x-ray to her left ankle demonstrating a new nondisplaced cortical fracture tip of the lateral malleolus with anterior lateral soft tissue swelling. Patient is given morphine for pain Zofran for nausea. Patient is chronically on hydrocodone at home. Will go ahead and have the nurses place a walking boot on the patient's left ankle patient will need to followup with her family Dr. Or orthopedist. Continue pain medications as prescribed by her pain cfo controller - Departure Departure Disposition: Home Clinical Impression: Fracture of left ankle, lateral malleolus Qualifiers: Encounter type: initial encounter Fracture type: closed Fracture alignment: nondisplaced Qualified Code(s): S82.65XA - Nondisplaced fracture of lateral malleolus of left fibula, initial encounter for closed fracture Condition: Fair Critical Care Time: No Referrals: SARA CARRASCO [Primary Care Provider] - Instructions: Ankle Fracture (DC) Additional Instructions: Return home. Ice and elevate her left ankle 24-48 hours. Followup with your family or [facility] orthopedic bone [facility] joint clinic. Pain medications as prescribed by your pain cfo controller. Return for acute distress or for severe symptoms.
--- NOTE | 2019-03-24 17:07 | XRAY ---
Indication: Pain and swelling. Comparison: September 21, 2008. 3 views of the left ankle demonstrates new nondisplaced cortical fracture tip of the lateral malleolus with anterior lateral soft tissue swelling. Stable heel spurs. No other bony, articular, or soft tissue abnormalities.
[2019-03-24 17:10] VITALS: BP 109/72; PULSE 74
== END 2019-03-24 17:25 | disposition home or self-care (01) ==
LOC: ED 16:15
DX: S82.65XA Nondisplaced fracture of lateral malleolus of left fibula, initial encounter for closed fracture (principal); X50.0XXA Overexertion from strenuous movement or load, initial encounter; E11.9 Type 2 diabetes mellitus without complications; J45.909 Unspecified asthma, uncomplicated; J44.9 Chronic obstructive pulmonary disease, unspecified; M25.572 Pain in left ankle and joints of left foot; Z79.899 Other long term (current) drug therapy
CPT/HCPCS: 73610; 96372; 99284; J2270; L4386; Q0162

== ENCOUNTER 2019-05-18 11:16 | Observation (INO) | payer MEDICAID ==
[2019-05-18] MEDS ORDERED: Sodium Chloride 0.9% 1000 ML 1,000 ML IV STA (11:39)
[2019-05-18] MEDS ORDERED: PYRIDIUM 200 MG PO ONE (11:42)
--- NOTE | 2019-05-18 11:46 | ERPHSYRPT ---
- History of Present Illness Time Seen by Provider: 05/18/19 11:35 Source: patient, family Exam Limitations: no limitations Physician History: 63 y/o white female presents with dizziness, flank pain, dysuria for 3 to 4 days. pt was dx with uti 3 to 4 days ago and has been on macrodantin. sx worsening pt required admission into hospital for iv antibiotics approx 2 months ago for same issue. pt has allergies to multiple antibx. however, they were able to use aztreonam iv and oral bactrim ds with benadryl. she tolerates those antibx fine. pt and expecting admission Timing/Duration: day(s) (3 to 4) Quality: pressure (bilat cva) Onset Location: generalized flank Pain Radiation: none Severity of Pain-Max: mild Severity of Pain-Current: mild Sexual intercourse history: non-contributory Modifying Factors: Improves With: nothing Associated Symptoms: fever, nausea, dysuria Allergies/Adverse Reactions: amoxicillin trihydrate [From Augmentin] Allergy (Severe, Verified 03/06/19 02:06 ) cefaclor [From Ceclor] Allergy (Severe, Verified 03/06/19 02:06) syncope levofloxacin [From Levaquin] Allergy (Severe, Verified 03/06/19 02:06) syncope potassium clavulanate [From Augmentin] Allergy (Severe, Verified 03/06/19 02:06) Cephalosporins Allergy (Mild, Verified 03/06/19 02:06) doxycycline Allergy (Mild, Verified 03/06/19 02:06) sertraline HCl [From Zoloft] Allergy (Mild, Verified 03/06/19 02:06) sulfamethoxazole [From Bactrim] Allergy (Verified 03/06/19 02:06) trimethoprim [From Bactrim] Allergy (Verified 03/06/19 02:06) Home Medications: Baclofen 10 mg [Lioresal 10 mg] 10 mg PO DAILY 02/28/13 [History] Cetirizine HCl [Zyrtec] 10 mg PO DAILY 02/28/13 [History] Docusate Sodium [Doc-Q-Lace] 200 mg PO HS 02/28/13 [History] Estrogens, Conjugated [Premarin] 0.3 mg PO DAILY 02/28/13 [History] Fluoxetine HCl [Prozac] 80 mg PO DAILY 02/28/13 [History] Gabapentin 800 mg PO BID 02/28/13 [History] Magnesium Oxide 400 mg [Mag-Ox 400] 800 mg PO DAILY 02/28/13 [History] Oxybutynin Chloride 5 mg [Ditropan 5 MG] 5 mg PO BID 02/28/13 [History] Simvastatin 20Mg [Zocor 20Mg] 20 mg PO HS 02/28/13 [History] Budesonide/Formoterol Fumarate [Symbicort 160-4.5 Mcg Inhaler] 2 puffs IH BID [History] Fluconazole [Diflucan] 200 mg PO WEEKLY 05/26/14 [History] Liothyronine Sodium 5 mcg PO DAILY 05/26/14 [History] Metformin HCl 500 mg [Glucophage 500 MG] 500 mg PO DAILY 05/26/14 [History ] Tamsulosin HCl 0.4 mg [Flomax 0.4 MG] 0.8 mg PO HS 06/08/15 [History] Albuterol Sulfate [Albuterol Sulfate Hfa] 2 puffs IH Q4HPRN PRN 03/06/19 [ History] Alcaftadine [Lastacaft] 1 drop OP DAILY PRN PRN 03/06/19 [History] Estrogens,Conjugated [Premarin Vaginal Cream] 1 applic INTRAVAGIN DAILY [History] Fluticasone Propionate [Flonase NASAL] 1 spray IH DAILY 03/06/19 [History] Furosemide 20 mg [Lasix 20 mg] 20 mg PO BID 03/06/19 [History] Hydrocodone/Acetaminophen [Hydrocodone-Acetamin 10-325 mg] 1 each PO Q6HPRN PRN 03/06/19 [History] Interferon Beta-1A/Albumin [Rebif Rebidose 22 Mcg/0.5 ml] 0.5 ml SQ UD 03/06/19 [History] Ipratropium [place] Hfa [Atrovent HFA MDI] 2 puff IH Q4HPRN PRN 03/06/19 [ History] Levothyroxine Sodium 150 mcg PO DAILY 03/06/19 [History] Meloxicam 7.5 mg [Mobic 7.5 MG] 7.5 mg PO BID 03/06/19 [History] Montelukast Sodium 10 mg PO DAILY 03/06/19 [History] Potassium Chloride [K-Dur] 20 meq PO DAILY 03/06/19 [History] Ranitidine HCl [Taladine] 150 mg PO BID 03/06/19 [History] predniSONE [Prednisone] 2.5 mg PO DAILY 03/06/19 [History] Hx Tetanus, Diphtheria Vaccination/Date Given: Yes Hx Influenza Vaccination/Date Given: No Hx Pneumococcal Vaccination/Date Given: No - Review of Systems Constitutional: Fever Eyes: No Symptoms Ears, Nose, & Throat: No Symptoms Respiratory: No Symptoms Cardiac: No Symptoms Abdominal/Gastrointestinal: Nausea Genitourinary Symptoms: Dysuria, Flank Pain Musculoskeletal: No Symptoms Skin: No Symptoms Neurological: No Symptoms Psychological: No Symptoms Endocrine: No Symptoms Hematologic/Lymphatic: No Symptoms Immunological/Allergic: No Symptoms All Other Systems: Reviewed and Negative - Past Medical History Pertinent Past Medical History: Yes Neurological History: Other ENT History: Other Cardiac History: Other Respiratory History: Asthma, COPD Endocrine Medical History: Diabetes Type II Musculoskeletal History: Other GI Medical History: No Pertinent History History: Other Psycho-Social History: Depression Female Reproductive Disorders: No Pertinent History Other Medical History: MS. COPD. Asthma. Sinus Tachycardia. Multiple medication/abtx allergies - Past Surgical History Past Surgical History: Yes Neuro Surgical History: No Pertinent History Cardiac: No Pertinent History Respiratory: No Pertinent History Gastrointestinal: No Pertinent History Genitourinary: No Pertinent History Musculoskeletal: No Pertinent History Female Surgical History: Hysterectomy Other Surgical History: pt had thyroidectomy also had surgery on stomach where she gave her self shots for ms area had a nodular area that needed removed - Social History Smoking Status: Current every day smoker How long have you smoked: years Exposure to second hand smoke: Yes Drug Use: none Patient Lives Alone: Yes - Nursing Vital Signs Nursing Vital Signs: Initial Vital Signs Temperature 98.6 F 05/18/19 11:16 Pulse Rate 79 05/18/19 11:16 Respiratory Rate 20 05/18/19 11:16 Blood Pressure 119/84 05/18/19 11:16 O2 Sat by Pulse Oximetry 92 L 05/18/19 11:16 Pain Scale Pain Intensity 8 - Physical Exam General Appearance: no apparent distress, alert, anxiety Eye Exam: PERRL/EOMI, eyes nml inspection Ears, Nose, Throat Exam: normal ENT inspection, moist mucous membranes Neck Exam: normal inspection, non-tender, supple, full range of motion Respiratory Exam: normal breath sounds, lungs clear, No chest tenderness, No respiratory distress, No airway intact Cardiovascular Exam: regular rate/rhythm, normal heart sounds, normal peripheral pulses Gastrointestinal/Abdomen Exam: soft, normal bowel sounds, No tenderness, No guarding Pelvic Exam: not done Rectal Exam: not done Back Exam: CVA tenderness (bilat) Extremity Exam: normal inspection, normal range of motion, pelvis stable Neurologic Exam: alert, oriented x 3, cooperative, 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 as tested Skin Exam: normal color, warm, dry Lymphatic Exam: No adenopathy SpO2 Interpretation: normal O2 Delivery: Room Air - Course Nursing assessment & vital signs reviewed: Yes Ordered Tests: Active Orders 24 hr Category Date Time Status AMYLASE Stat Lab 05/18/19 12:14 Completed BLOOD CULTURE Stat Lab 05/18/19 13:00 Received CBC W DIFF Stat Lab 05/18/19 12:14 Completed CMP Stat Lab 05/18/19 12:14 Completed LIPASE Stat Lab 05/18/19 12:14 Completed Lactic Acid Stat Lab 05/18/19 11:53 Completed Manual Differential NC Stat Lab 05/18/19 12:14 Completed UA W/RFX UR CULTURE Stat Lab 05/18/19 11:26 Completed Medication Summary Generic Name Dose Route Start Last Admin Trade Name Freq PRN Reason Stop Dose Admin Aztreonam 1 gm in 100 mls @ 200 mls/hr 05/18/19 14:00 Azactam 1 Gm/100 Ml D5w IV 05/18/19 15:29 Q1H HAYDEN Discontinued Medications Generic Name Dose Route Start Last Admin Trade Name Freq PRN Reason Stop Dose Admin Sodium Chloride 1,000 mls @ 999 mls/hr 05/18/19 11:39 05/18/19 13:53 Sodium Chloride 0.9% 1000 Ml IV 05/18/19 12:39 Infused .Q1H1M STA Infusion Sodium Chloride Confirm 05/18/19 12:27 Sodium Chloride 0.9% 1000 Ml Administered 05/18/19 12:28 Dose 1,000 mls @ ud .ROUTE .STK-MED ONE Phenazopyridine HCl 200 mg 05/18/19 11:42 05/18/19 12:33 Pyridium 200 Mg PO 05/18/19 11:43 200 mg STAT ONE Administration Phenazopyridine HCl Confirm 05/18/19 12:26 Pyridium 200 Mg Administered 05/18/19 12:27 Dose 200 mg .ROUTE .STK-MED ONE Lab/Rad Data: Laboratory Result Diagrams 05/18/19 12:14 05/18/19 12:14 Laboratory Results 05/18/19 05/18/19 05/18/19 Range/Units 12:14 12:14 11:53 WBC 14.0 H (4.0-10.5) K/mm3 RBC 4.74 (4.1-5.4) M/mm3 Hgb 14.5 (12.0-16.0) gm/dl Hct 42.8 (35-47) % MCV 90.3 (78-100) fl MCH 30.6 (26-32) pg MCHC 33.9 (32-36) g/dl RDW 13.5 (11.5-14.0) % Plt Count 346 (150-450) K/mm3 MPV 9.5 (6-9.5) fl Sodium 140 (137-145) mmol/L Potassium 4.1 (3.5-5.1) mmol/L Chloride 109 H (98-107) mmol/L Carbon Dioxide 20 L (22-30) mmol/L Anion Gap 15.3 H (5-15) MEQ/L BUN 25 H (7-17) mg/dL Creatinine 0.61 (0.52-1.04) mg/dL Estimated GFR > 60.0 ML/MIN Glucose 83 (74-106) mg/dL Lactic Acid 1.3 (0.4-2.0) Calcium 10.7 H (8.4-10.2) mg/dL Total Bilirubin 0.50 (0.2-1.3) mg/dL AST 32 (14-36) U/L ALT 15 (0-35) U/L Alkaline Phosphatase 101 (38-126) U/L Serum Total Protein 7.2 (6.3-8.2) g/dL Albumin 3.9 (3.5-5.0) g/dL Amylase 43 (30-110) U/L Lipase 33 (23-300) U/L Urine Color (YELLOW) Urine Appearance (CLEAR) Urine pH (5-6) Ur Specific [place] (1.005-1.025) Urine Protein (Negative) Urine Ketones (NEGATIVE) Urine Blood (0-5) Wili/ul Urine Nitrite (NEGATIVE) Urine Bilirubin (NEGATIVE) Urine Urobilinogen (0-1) mg/dL Ur Leukocyte Esterase (NEGATIVE) Urine WBC (Auto) (0-5) /HPF Urine RBC (Auto) (0-2) /HPF U Epithel Cells (Auto) (FEW) /HPF Urine Bacteria (Auto) (NEGATIVE) /HPF Urine Mucus (Auto) (NEGATIVE) /HPF Urine Culture Reflexed (NO) Urine Glucose (NEGATIVE) mg/dL 05/18/19 Range/Units 11:26 WBC (4.0-10.5) K/mm3 RBC (4.1-5.4) M/mm3 Hgb (12.0-16.0) gm/dl Hct (35-47) % MCV (78-100) fl MCH (26-32) pg MCHC (32-36) g/dl RDW (11.5-14.0) % Plt Count (150-450) K/mm3 MPV (6-9.5) fl Sodium (137-145) mmol/L Potassium (3.5-5.1) mmol/L Chloride (98-107) mmol/L Carbon Dioxide (22-30) mmol/L Anion Gap (5-15) MEQ/L BUN (7-17) mg/dL Creatinine (0.52-1.04) mg/dL Estimated GFR ML/MIN Glucose (74-106) mg/dL Lactic Acid (0.4-2.0) Calcium (8.4-10.2) mg/dL Total Bilirubin (0.2-1.3) mg/dL AST (14-36) U/L ALT (0-35) U/L Alkaline Phosphatase (38-126) U/L Serum Total Protein (6.3-8.2) g/dL Albumin (3.5-5.0) g/dL Amylase (30-110) U/L Lipase (23-300) U/L Urine Color YELLOW (YELLOW) Urine Appearance SLIGHTLY CLOUDY (CLEAR) Urine pH 5.0 (5-6) Ur Specific [place] 1.024 (1.005-1.025) Urine Protein NEGATIVE (Negative) Urine Ketones SMALL (NEGATIVE) Urine Blood NEGATIVE (0-5) Wili/ul Urine Nitrite NEGATIVE (NEGATIVE) Urine Bilirubin NEGATIVE (NEGATIVE) Urine Urobilinogen NEGATIVE (0-1) mg/dL Ur Leukocyte Esterase NEGATIVE (NEGATIVE) Urine WBC (Auto) 6-10 (0-5) /HPF Urine RBC (Auto) NONE (0-2) /HPF U Epithel Cells (Auto) RARE (FEW) /HPF Urine Bacteria (Auto) FEW (NEGATIVE) /HPF Urine Mucus (Auto) MODERATE (NEGATIVE) /HPF Urine Culture Reflexed NO (NO) Urine Glucose NEGATIVE (NEGATIVE) mg/dL - Progress Progress: improved Air Movement: good Progress Note: 05/18/19 13:[address] sims. i reviewed pt hx, condition, lab results with her. she will place pt in observation, iv aztreonam and repeat labs in am. Blood Culture(s) Obtained: Yes Antibiotics given: Yes Discussed with : Guilherme Counseled pt/family regarding: lab results, diagnosis, need for follow-up - Departure Departure Disposition: Observation Clinical Impression: UTI (urinary tract infection), Leukocytosis Condition: Stable Critical Care Time: No Referrals: SARA SIMS [Primary Care Provider] -
[2019-05-18 12:15] LABS: Hematocrit 42.8 % (35-47); Hemoglobin 14.5 gm/dl (12.0-16.0); Mean Cell Volume 90.3 fl (78-100); Mean Corpuscular Hemoglobin 30.6 pg (26-32); Mean Corpuscular Hgb Concent. 33.9 g/dl (32-36); Mean Platelet Volume 9.5 fl (6-9.5); Platelet Count 346 K/mm3 (150-450); Red Blood Count 4.74 M/mm3 (4.1-5.4); Red Cell Distribution Width 13.5 % (11.5-14.0)
[2019-05-18] MEDS ORDERED: PYRIDIUM 200 MG ONE (12:26)
[2019-05-18] MEDS ORDERED: Sodium Chloride 0.9% 1000 ML 1,000 ML ONE (12:27)
[2019-05-18 12:36] LABS: ALBUMIN 3.9 g/dL (3.5-5.0); ALKALINE PHOSPHATASE 101 U/L (38-126); AMYLASE 43 U/L (30-110); ANION GAP 15.3 MEQ/L (5-15); BLOOD UREA NITROGEN 25 mg/dL (7-17); CHLORIDE 109 mmol/L (98-107); Calcium 10.7 mg/dL (8.4-10.2); Carbon Dioxide 20 mmol/L (22-30); Creatinine 1 0.61 mg/dL (0.52-1.04); Glucose 83 mg/dL (74-106); LIPASE 33 U/L (23-300); Potassium 4.1 mmol/L (3.5-5.1); SGOT/AST 32 U/L (14-36); SGPT/ALT 15 U/L (0-35); SODIUM 140 mmol/L (137-145); Total Protein 7.2 g/dL (6.3-8.2)
[2019-05-18 13:11] LABS: Appearance SLIGHTLY CLOUDY (CLEAR); Bacteria FEW /HPF (NEGATIVE); Bilirubin NEGATIVE (NEGATIVE); Blood NEGATIVE Ery/ul (0-5); Epithelial Cells RARE /HPF (FEW); Glucose NEGATIVE (NEGATIVE); Ketones SMALL (NEGATIVE); Leukocyte Esterase NEGATIVE (NEGATIVE); Mucus MODERATE /HPF (NEGATIVE); Nitrite NEGATIVE (NEGATIVE); Protein,Urine Dip NEGATIVE (Negative); Specific Gravity 1.024 (1.005-1.025); Urobilinogen NEGATIVE mg/dL (0-1)
[2019-05-18] MEDS: Azactam 1 GM/100 ML D5W 1 GM/100 ML IVPB IV SCH ×3 (14:07→21:49)
[2019-05-18 14:18] LABS: Eosinophil 3 % (0.00-3.0); Lymphocytes 28 % (24-44); Monocyte 1 % (0.0-12.0); Neutrophils 68 % (36.0-66.0); Total Cells Counted 100; Toxic Granulation 1+
[2019-05-18 14:19] LABS: Platelet Estimate NORMAL (NORMAL)
[2019-05-18] MEDS ORDERED: TYLENOL 325 MG PO PRN (15:18)
[2019-05-18] MEDS ORDERED: Zofran 4 MG/2 ML VIAL IV PRN (15:18)
[2019-05-18] MEDS: Sodium Chloride 0.9% 1000 ML 1,000 ML IV SCH (16:16)
[2019-05-18] MEDS ORDERED: ALCAFTADINE OP PRN (17:19)
[2019-05-18] MEDS ORDERED: Atrovent HFA MDI IH PRN (17:19)
[2019-05-18] MEDS ORDERED: Ventolin Hfa MDI IH PRN (17:19)
[2019-05-18] MEDS ORDERED: Norco 10/325 MG Tablet PO PRN (17:19)
[2019-05-18] MEDS ORDERED: FLUCONAZOLE 200 MG PO SCH (17:30)
[2019-05-18] MEDS ORDERED: MEDICATION INTERVENTION MC SCH ×3 (17:45→18:15)
[2019-05-18] MEDS ORDERED: NICODERM CQ 14 MG TOP SCH (19:00)
[2019-05-18] MEDS ORDERED: Advair Hfa 115/21 Common canister IH SCH (19:00)
[2019-05-18] MEDS ORDERED: PROVENTIL COMMON CANISTER IH PRN (19:36)
[2019-05-18] MEDS: Advair Hfa 230/21 Mcg COMMON CANISTER IH SCH (19:40)
[2019-05-18] MEDS ORDERED: PATIENT OWN MEDICATION IH PRN (20:39)
[2019-05-18] MEDS: Pepcid 20 MG PO SCH (21:54)
[2019-05-18] MEDS: Neurontin 400 MG PO SCH (21:55)
[2019-05-18] MEDS: Ditropan 5 MG PO SCH (21:55)
[2019-05-18] MEDS: Mobic 7.5 MG PO SCH (21:56)
[2019-05-18] MEDS ORDERED: NON-FORMULARY ITEM (Gabapentin [Gabapentin] 800 MG) PO SCH (22:00)
[2019-05-18] MEDS ORDERED: NON-FORMULARY ITEM (Budesonide/Formoterol Fumarate [Symbicort 160-4.5 Mcg Inhaler] 2 PUFFS IH SCH (22:00)
[2019-05-18] MEDS ORDERED: Colace 100 MG PO SCH (22:00)
[2019-05-18] MEDS ORDERED: ZOCOR 20MG PO SCH (22:00)
[2019-05-18] MEDS ORDERED: Flomax 0.4 MG PO SCH (22:00)
[2019-05-18] MEDS ORDERED: RANITIDINE HCL 150 MG PO SCH (22:00)
[2019-05-18] MEDS: DUONEB 0.5-3 MG/3 ml Neb IH PRN (23:24)
[2019-05-19] MEDS: Sodium Chloride 0.9% 1000 ML 1,000 ML IV SCH ×2 (02:54→14:34)
[2019-05-19] MEDS: DUONEB 0.5-3 MG/3 ml Neb IH PRN (04:40)
[2019-05-19] MEDS: Azactam 1 GM/100 ML D5W 1 GM/100 ML IVPB IV SCH (06:36)
[2019-05-19 06:38] LABS: Hematocrit 36.8 % (35-47); Hemoglobin 12.1 gm/dl (12.0-16.0); Mean Cell Volume 92.7 fl (78-100); Mean Corpuscular Hgb Concent. 32.9 g/dl (32-36); Mean Platelet Volume 10.1 fl (6-9.5); Platelet Count 277 K/mm3 (150-450); Red Blood Count 3.97 M/mm3 (4.1-5.4); Red Cell Distribution Width 13.7 % (11.5-14.0); White Blood Count 9.1 K/mm3 (4.0-10.5)
[2019-05-19 06:42] LABS: Mean Corpuscular Hemoglobin 30.4 pg (26-32)
[2019-05-19 07:01] LABS: ALBUMIN 3.3 g/dL (3.5-5.0); ALKALINE PHOSPHATASE 79 U/L (38-126); ANION GAP 11.1 MEQ/L (5-15); BLOOD UREA NITROGEN 15 mg/dL (7-17); CHLORIDE 112 mmol/L (98-107); Calcium 9.5 mg/dL (8.4-10.2); Carbon Dioxide 18 mmol/L (22-30); Creatinine 1 0.57 mg/dL (0.52-1.04); Glucose 85 mg/dL (74-106); Potassium 3.6 mmol/L (3.5-5.1); SGOT/AST 29 U/L (14-36); SGPT/ALT 12 U/L (0-35); SODIUM 138 mmol/L (137-145); Total Protein 6.4 g/dL (6.3-8.2)
[2019-05-19] MEDS: Advair Hfa 230/21 Mcg COMMON CANISTER IH SCH (07:10)
[2019-05-19] MEDS ORDERED: Glucophage 500 MG PO SCH (08:00)
[2019-05-19 08:29] LABS: ANISOCYTOSIS 1+; Eosinophil 5 % (0.00-3.0); Lymphocytes 43 % (24-44); Monocyte 2 % (0.0-12.0); Neutrophils 50 % (36.0-66.0); Total Cells Counted 100; Toxic Granulation 2+
[2019-05-19 08:30] LABS: Platelet Estimate NORMAL (NORMAL)
[2019-05-19] MEDS: Pepcid 20 MG PO SCH (08:58)
[2019-05-19] MEDS: Mobic 7.5 MG PO SCH (08:58)
[2019-05-19] MEDS: Neurontin 400 MG PO SCH (08:58)
[2019-05-19] MEDS: Ditropan 5 MG PO SCH (08:59)
[2019-05-19] MEDS ORDERED: ESTROGENS CONJUGATED 0.3 MG PO SCH (10:00)
[2019-05-19] MEDS ORDERED: Singulair 10 MG PO SCH (10:00)
[2019-05-19] MEDS ORDERED: Flonase NASAL NS SCH (10:00)
[2019-05-19] MEDS ORDERED: SYNTHROID 150 MCG PO SCH (10:00)
[2019-05-19] MEDS ORDERED: LASIX 20 MG PO SCH (10:00)
[2019-05-19] MEDS ORDERED: NON-FORMULARY ITEM (Potassium Chloride [K-Dur] 20 MEQ) PO SCH (10:00)
[2019-05-19] MEDS ORDERED: LIOTHYRONINE SODIUM 5 MCG PO SCH (10:00)
[2019-05-19] MEDS ORDERED: Klor Con 10 MEQ PO SCH (10:00)
[2019-05-19] MEDS ORDERED: FLUOXETINE HCL 80 MG PO SCH (10:00)
[2019-05-19] MEDS ORDERED: PREDNISONE 20 MG PO SCH (10:00)
[2019-05-19] MEDS ORDERED: LIORESAL 10 MG PO SCH (10:00)
[2019-05-19] MEDS ORDERED: MAG-OX 400 PO SCH (10:00)
[2019-05-19] MEDS ORDERED: NON-FORMULARY ITEM (Cetirizine Hcl [Zyrtec] 10 MG) PO SCH (10:00)
[2019-05-19] MEDS ORDERED: CLARITIN 10 MG PO SCH (10:00)
[2019-05-19] MEDS ORDERED: DELTASONE 20 MG PO SCH (10:00)
[2019-05-19] MEDS ORDERED: Prozac 20 MG PO SCH (10:00)
[2019-05-19] MEDS ORDERED: PHARMACY DOSING REQUIRED: VANCOMYCIN MC ONE (10:30)
[2019-05-19] MEDS ORDERED: VANCOCIN 1 GM VIAL*** 1.75 GM in Sodium Chloride 0.9% 500 ML 500 ML IV SCH (10:30)
[2019-05-19 16:28] VITALS: BP 136/74; PULSE 68; O2SAT 68
--- NOTE | 2019-05-19 17:07 | PCM.SSS ---
History of Present Illness - Chief Complaint Chief Complaint: UTI. Leucocytosis History of Present Illness: is a 63 year old female pt of mine from [facility] with MS, COPD, asthma, DM , HTN, hypothyroid, chronic oral candidal infections, chronic UTIs, and chronic pain who was admitted through ER last night for UTI, failure of outpatient therapy. Her WBC were 14.0. She was seen by me this morning at approx 0840. She had been c/o dysuria; went to and given macrobid. After 3d on macrobid she had persistent sx so went to ER. She was started on aztreonam. - Review of Systems Constitutional: Other (temp to 100 at home) Respiratory: Cough Abdominal/Gastrointestinal: Diarrhea (since starting abx), Appetite Changes Genitourinary Symptoms: Dysuria Psychological: No Suicidal Ideations, No Homicidal Ideations All Other Systems: Reviewed and Negative Medications & Allergies Home Medications: Home Medication List Baclofen 10 mg [Lioresal 10 mg] 10 mg PO DAILY 02/28/13 [History Confirmed 05/18/19] Cetirizine HCl [Zyrtec] 10 mg PO DAILY 02/28/13 [History Confirmed 05/18/19] Docusate Sodium [Doc-Q-Lace] 100 mg PO HS 02/28/13 [History Confirmed 05/18/19] Estrogens, Conjugated [Premarin] 0.3 mg PO DAILY 02/28/13 [History Confirmed 04/29] Fluoxetine HCl [Prozac] 80 mg PO DAILY 02/28/13 [History Confirmed 05/18/19] Gabapentin 800 mg PO BID 02/28/13 [History Confirmed 05/18/19] Magnesium Oxide 400 mg [Mag-Ox 400] 800 mg PO DAILY 02/28/13 [History Confirmed 05/18/19] Oxybutynin Chloride 5 mg [Ditropan 5 MG] 5 mg PO BID 02/28/13 [History Confirmed 05/18/19] Simvastatin 20Mg [Zocor 20Mg] 20 mg PO HS 02/28/13 [History Confirmed ] Budesonide/Formoterol Fumarate [Symbicort 160-4.5 Mcg Inhaler] 2 puffs IH BID [History Confirmed 05/18/19] Fluconazole [Diflucan] 200 mg PO WEEKLY 05/26/14 [History Confirmed 05/18/19] Liothyronine Sodium 5 mcg PO DAILY 05/26/14 [History Confirmed 05/18/19] Metformin HCl 500 mg [Glucophage 500 MG] 500 mg PO BIDWMEALS 05/26/14 [ History Confirmed 05/18/19] Tamsulosin HCl 0.4 mg [Flomax 0.4 MG] 0.8 mg PO HS 06/08/15 [History Confirmed 05/18/19] Albuterol Sulfate [Albuterol Sulfate Hfa] 2 puffs IH Q4HPRN PRN 03/06/19 [ History Confirmed 05/18/19] Alcaftadine [Lastacaft] 1 drop OP DAILY PRN PRN 03/06/19 [History Confirmed 04/29] Estrogens,Conjugated [Premarin Vaginal Cream] 1 applic INTRAVAGIN DAILY PRN [History Confirmed 05/18/19] Fluticasone Propionate [Flonase NASAL] 2 spray IH DAILY 03/06/19 [History Confirmed 05/18/19] Furosemide 20 mg [Lasix 20 mg] 20 mg PO DAILY 03/06/19 [History Confirmed 05/18/19] Hydrocodone/Acetaminophen [Hydrocodone-Acetamin 10-325 mg] 1 each PO Q6HPRN PRN 03/06/19 [History Confirmed 05/18/19] Interferon Beta-1A/Albumin [Rebif Rebidose 22 Mcg/0.5 ml] 0.5 ml SQ UD 03/06/19 [History Confirmed 05/18/19] Ipratropium [place] Hfa [Atrovent HFA MDI] 2 puff IH Q4HPRN PRN 03/06/19 [ History Confirmed 05/18/19] Levothyroxine Sodium 150 mcg PO DAILY 03/06/19 [History Confirmed 05/18/19] Meloxicam 7.5 mg [Mobic 7.5 MG] 7.5 mg PO BID 03/06/19 [History Confirmed 05/18/19] Montelukast Sodium 10 mg PO DAILY 03/06/19 [History Confirmed 05/18/19] Potassium Chloride [K-Dur] 20 meq PO DAILY 03/06/19 [History Confirmed 05/18/19] Ranitidine HCl [Taladine] 150 mg PO BID 03/06/19 [History Confirmed 05/18/19] predniSONE [Prednisone] 20 mg PO DAILY 03/06/19 [History Confirmed 05/18/19] Smz/Tmp Ds Tablet [Bactrim Ds Tablet] 1 tab PO BID #8 tablet 03/08/19 [Rx Confirmed 05/18/19] Doxycycline Hyclate 100 mg [Vibramycin 100 MG] 100 mg PO BID 05/18/19 [ History Confirmed 05/18/19] Allergies/Adverse Reactions: Allergies Allergy/AdvReac Type Severity Reaction Status Date / Time amoxicillin trihydrate Allergy Severe Verified 03/06/19 02:06 [From Augmentin] cefaclor [From Ceclor] Allergy Severe syncope Verified 03/06/19 02:06 levofloxacin [From Levaquin] Allergy Severe syncope Verified 03/06/19 02:06 potassium clavulanate Allergy Severe Verified 03/06/19 02:06 [From Augmentin] Cephalosporins Allergy Mild Verified 03/06/19 02:06 doxycycline Allergy Mild Verified 03/06/19 02:06 sertraline HCl [From Zoloft] Allergy Mild Verified 03/06/19 02:06 sulfamethoxazole Allergy Verified 03/06/19 02:06 [From Bactrim] trimethoprim [From Bactrim] Allergy Verified 03/06/19 02:06 - Past Medical History Past Medical History: Yes Neurological History: Other ENT History: Other Cardiac History: Other CARDIAC HISTORY: Other (sinus tachycardia) Respiratory History: Asthma, COPD Endocrine Medical History: Diabetes Type II Musculoskelatal History: Other GI Medical History: No Pertinent History History: Other Pyscho-Social History: Depression Reproductive Disorders: No Pertinent History Comment: MS. Sinus Tachycardia. Multiple medication/abtx allergies - Female History Are you now?: No - Past Surgical History Past Surgical History: Yes Neuro Surgical History: No Pertinent History Cardiac History: No Pertinent History Respiratory Surgery: No Pertinent History GI Surgical History: No Pertinent History Genitourinary Surgical Hx: No Pertinent History Musculskeletal Surgical Hx: No Pertinent History Female Surgical History: Hysterectomy Other Surgical History: pt had thyroidectomy also had surgery on stomach where she gave her self shots for ms area had a nodular area that needed removed - Social History Smoking Status: Current every day smoker How long have you smoked: years Exposure to second hand smoke: Yes Alcohol: None Drug Use: none - Physical Exam Vital Signs: Vital Signs - 24 hr Temp Pulse Resp BP Pulse Ox 05/19/19 16:27 98 F 68 20 136/74 68 L 05/19/19 12:00 98.5 F 87 18 99/56 05/19/19 08:00 98.3 F 71 18 129/71 94 L 05/19/19 07:12 72 18 93 L 05/19/19 04:40 70 21 92 L 05/19/19 04:00 98.4 F 70 24 100/53 92 L 05/18/19 23:54 97.8 F 90 22 127/59 93 L 05/18/19 23:24 90 22 93 L 05/18/19 20:00 98.4 F 76 17 128/67 96 05/18/19 19:39 75 18 92 L General Appearance: no apparent distress, alert Neurologic Exam: oriented x 3, cooperative Eye Exam: eyes nml inspection Ears, Nose, Throat Exam: moist mucous membranes Neck Exam: normal inspection, non-tender, No lymphadenopathy Respiratory Exam: lungs clear, diminished breath sounds, prolonged expirations, No crackles/rales, No rhonchi, No wheezing Cardiovascular Exam: regular rate/rhythm, normal heart sounds, No murmur Gastrointestinal/Abdomen Exam: soft, normal bowel sounds, No tenderness, No distention, No mass, No guarding, No rebound Back Exam: normal inspection, No rash Extremity Exam: normal inspection, tenderness, No swelling Skin Exam: normal color, warm, dry, No rash Results - Labs Lab/Micro Results: Accuchecks Date 05/18/19 Time 16:30 Accucheck Value: 110 Accucheck Value: 88 Accucheck Value: 93 Lab Results-Last 24 Hours 05/19/19 05/19/19 Range/Units 06:00 06:00 WBC 9.1 (4.0-10.5) K/mm3 RBC 3.97 L (4.1-5.4) M/mm3 Hgb 12.1 (12.0-16.0) gm/dl Hct 36.8 (35-47) % MCV 92.7 (78-100) fl MCH 30.4 (26-32) pg MCHC 32.9 (32-36) g/dl RDW 13.7 (11.5-14.0) % Plt Count 277 (150-450) K/mm3 MPV 10.1 H (6-9.5) fl Segmented Neutrophils 50 (36.0-66.0) % Lymphocytes (Manual) 43 (24-44) % Monocytes (Manual) 2 (0.0-12.0) % Eosinophils (Manual) 5 H (0.00-3.0) % Toxic Granulation 2+ Platelet Estimate NORMAL (NORMAL) RBC Morphology ABNORMAL Anisocytosis 1+ Sodium 138 (137-145) mmol/L Potassium 3.6 (3.5-5.1) mmol/L Chloride 112 H (98-107) mmol/L Carbon Dioxide 18 L (22-30) mmol/L Anion Gap 11.1 (5-15) MEQ/L BUN 15 (7-17) mg/dL Creatinine 0.57 (0.52-1.04) mg/dL Estimated GFR > 60.0 ML/MIN Glucose 85 (74-106) mg/dL Calcium 9.5 (8.4-10.2) mg/dL Total Bilirubin 0.40 (0.2-1.3) mg/dL AST 29 (14-36) U/L ALT 12 (0-35) U/L Alkaline Phosphatase 79 (38-126) U/L Serum Total Protein 6.4 (6.3-8.2) g/dL Albumin 3.3 L (3.5-5.0) g/dL Accuchecks Date 05/18/19 Time 16:30 Accucheck Value: 110 Accucheck Value: 88 Accucheck Value: 93 - Other Procedures and Tests Respiratory Therapy 05/18/19 17:46 Respiratory Therapy Assessment DAILY 05/18/19 18:35 Peak Expiratory Flow Rate ONCE Assessment/Plan (1) UTI (urinary tract infection) Current Visit: Yes Status: Acute Qualifiers: Urinary tract infection type: acute cystitis Hematuria presence: without hematuria Qualified Code(s): N30.00 - Acute cystitis without hematuria Assessment & Plan: Her culture from earlier in the week showed E. faecalis, resistant to dipro/ levaquin and tetracycline; susceptible to linezolid, vancomycin, daptomycin, and macrobid. Stop aztreonam. Start vancomycin. Will try to get in 2 doses today. Then 1 dose daily for the next 2 days then resume the macrobid. She will likely go home tonight after her 2nd dose. Code(s): N39.0 - URINARY TRACT INFECTION, SITE NOT SPECIFIED (2) Leukocytosis Current Visit: Yes Status: Resolved Code(s): D72.829 - ELEVATED WHITE BLOOD CELL COUNT, UNSPECIFIED (3) Chronic obstructive lung disease Current Visit: No Status: Chronic Assessment & Plan: stable Code(s): J44.9 - CHRONIC OBSTRUCTIVE PULMONARY DISEASE, UNSPECIFIED (4) Tobacco dependence syndrome Current Visit: No Status: Chronic Code(s): F17.200 - NICOTINE DEPENDENCE, UNSPECIFIED, UNCOMPLICATED Hospital Summary - Hospital Course Hospital Course: is a 63 year old female pt of mine from [facility] with MS, COPD, asthma, DM , HTN, hypothyroid, chronic oral candidal infections, chronic UTIs, and chronic pain who was admitted through ER last night for UTI, failure of outpatient therapy. Her WBC were 14.0. She was seen by me this morning at approx 0840. She had been c/o dysuria; went to and given macrobid. After 3d on macrobid she had persistent sx so went to ER. She was started on aztreonam. Her WBC this morning are 9.1. She is feeling much better and would like to go home as soon as she can. I did change her abx based on her susceptibility report from [facility] done earlier in the week. She will get 1 dose of vancomycin daily x 2d in outpatient infusion, then will resume and finish the macrobid. - Vitals & Intake/Output Vital Signs: Vital Signs Temperature 98 F 05/19/19 16:27 Pulse Rate 68 05/19/19 16:27 Respiratory Rate 20 05/19/19 16:27 Blood Pressure 136/74 05/19/19 16:27 O2 Sat by Pulse Oximetry 68 L 05/19/19 16:27 Intake & Output: Intake & Output 05/17/19 05/18/19 05/19/19 05/20/19 11:59 11:59 11:59 11:59 Intake Total 2833 600 Output Total 1350 900 Balance 1483 -300 Weight 75.296 kg 73 kg 72.4 kg - Lab Result Diagrams: 05/19/19 06:00 05/19/19 06:00 Lab Results-Last 24 Hrs: Accuchecks Date 05/18/19 Time 16:30 Accucheck Value: 110 Accucheck Value: 88 Accucheck Value: 93 Lab Results-Last 24 Hours 05/19/19 05/19/19 Range/Units 06:00 06:00 WBC 9.1 (4.0-10.5) K/mm3 RBC 3.97 L (4.1-5.4) M/mm3 Hgb 12.1 (12.0-16.0) gm/dl Hct 36.8 (35-47) % MCV 92.7 (78-100) fl MCH 30.4 (26-32) pg MCHC 32.9 (32-36) g/dl RDW 13.7 (11.5-14.0) % Plt Count 277 (150-450) K/mm3 MPV 10.1 H (6-9.5) fl Segmented Neutrophils 50 (36.0-66.0) % Lymphocytes (Manual) 43 (24-44) % Monocytes (Manual) 2 (0.0-12.0) % Eosinophils (Manual) 5 H (0.00-3.0) % Toxic Granulation 2+ Platelet Estimate NORMAL (NORMAL) RBC Morphology ABNORMAL Anisocytosis 1+ Sodium 138 (137-145) mmol/L Potassium 3.6 (3.5-5.1) mmol/L Chloride 112 H (98-107) mmol/L Carbon Dioxide 18 L (22-30) mmol/L Anion Gap 11.1 (5-15) MEQ/L BUN 15 (7-17) mg/dL Creatinine 0.57 (0.52-1.04) mg/dL Estimated GFR > 60.0 ML/MIN Glucose 85 (74-106) mg/dL Calcium 9.5 (8.4-10.2) mg/dL Total Bilirubin 0.40 (0.2-1.3) mg/dL AST 29 (14-36) U/L ALT 12 (0-35) U/L Alkaline Phosphatase 79 (38-126) U/L Serum Total Protein 6.4 (6.3-8.2) g/dL Albumin 3.3 L (3.5-5.0) g/dL Micro Results-Entire Visit: Accuchecks Date 05/18/19 Time 16:30 Accucheck Value: 110 Accucheck Value: 88 Accucheck Value: 93 - Procedures and Test Procedures and Tests throughout Hospitalization: Therapy Orders & Screens 05/18/19 15:56 OT Screen per Nursing Assess ONCE Comment: Protocol Order Physician Instructions: Greater than 3 points order OT Admission Screening Reason For Exam: Triggered on Admission Diagnosis: UTI. Leucocytosis Open Wound/Cellutlitis/Pressure Ulcers: No Acute Fx/ORIF/Change in wt bearing status: Yes Severe MUSCULOSKELETAL pain: No ADL Dysfunction: No Acute CVA w/Hemiparesis/Hemiplegia: No Decreased Functional Mobility/Strength: Yes Sprain/Strain: No Acute Post-op Mobility Dysfunction: No Total Points: 6 PT Screen per Nursing Assess ONCE Comment: Protocol Order Physician Instructions: Greater than 3 points order PT Admission Screenin Reason For Exam: Triggered on Admission Diagnosis: UTI. Leucocytosis Open Wound/Cellutlitis/Pressure Ulcers: No Acute Fx/ORIF/Change in wt bearing status: Yes Severe MUSCULOSKELETAL pain: No ADL Dysfunction: No Acute CVA w/Hemiparesis/Hemiplegia: No Decreased Functional Mobility/Strength: Yes Sprain/Strain: No Acute Post-op Mobility Dysfunction: No Total Points: 6 05/18/19 17:46 Respiratory MDI HS Comment: Diagnosis: UTI. Leucocytosis Respiratory Therapy Assessment DAILY Comment: Diagnosis: UTI. Leucocytosis 05/18/19 18:35 Peak Expiratory Flow Rate ONCE Comment: Reason For Exam: Diagnosis: UTI. Leucocytosis - Discharge Disposition: Home, Self-Care Condition: Stable Prescriptions: No Action Baclofen 10 mg [Lioresal 10 mg] 10 mg PO DAILY Docusate Sodium [Doc-Q-Lace] 100 mg PO HS Cetirizine HCl [Zyrtec] 10 mg PO DAILY Gabapentin 800 mg PO BID Fluoxetine HCl [Prozac] 80 mg PO DAILY Magnesium Oxide 400 mg [Mag-Ox 400] 800 mg PO DAILY Simvastatin 20Mg [Zocor 20Mg] 20 mg PO HS Estrogens, Conjugated [Premarin] 0.3 mg PO DAILY Oxybutynin Chloride 5 mg [Ditropan 5 MG] 5 mg PO BID Liothyronine Sodium 5 mcg PO DAILY Metformin HCl 500 mg [Glucophage 500 MG] 500 mg PO BIDWMEALS Budesonide/Formoterol Fumarate [Symbicort 160-4.5 Mcg Inhaler] 2 puffs IH BID Fluconazole [Diflucan] 200 mg PO WEEKLY Tamsulosin HCl 0.4 mg [Flomax 0.4 MG] 0.8 mg PO HS Estrogens,Conjugated [Premarin Vaginal Cream] 1 applic INTRAVAGIN DAILY PRN PRN Reason: replacement Interferon Beta-1A/Albumin [Rebif Rebidose 22 Mcg/0.5 ml] 0.5 ml SQ UD Potassium Chloride [K-Dur] 20 meq PO DAILY predniSONE [Prednisone] 20 mg PO DAILY Albuterol Sulfate [Albuterol Sulfate Hfa] 2 puffs IH Q4HPRN PRN PRN Reason: Shortness Of Breath/Wheezing Ipratropium [place] Hfa [Atrovent HFA MDI] 2 puff IH Q4HPRN PRN PRN Reason: Shortness Of Breath/Wheezing Fluticasone Propionate [Flonase NASAL] 2 spray IH DAILY Furosemide 20 mg [Lasix 20 mg] 20 mg PO DAILY Meloxicam 7.5 mg [Mobic 7.5 MG] 7.5 mg PO BID Montelukast Sodium 10 mg PO DAILY Ranitidine HCl [Taladine] 150 mg PO BID Hydrocodone/Acetaminophen [Hydrocodone-Acetamin 10-325 mg] 1 each PO Q6HPRN PRN PRN Reason: Moderate To Severe Pain Levothyroxine Sodium 150 mcg PO DAILY Alcaftadine [Lastacaft] 1 drop OP DAILY PRN PRN PRN Reason: Allergies Smz/Tmp Ds Tablet [Bactrim Ds Tablet] 1 tab PO BID #8 tablet Doxycycline Hyclate 100 mg [Vibramycin 100 MG] 100 mg PO BID Instructions: Urinary Tract Infection, Adult (DC) Additional Instructions: Infusion Center daily Thursday and Thursday @ 7 am to receive IV antibiotics. Continue with Bactrim DS after completion of IV antibiotics; resume on Thursday per home RX. Follow up with: SARA CARRASCO [Primary Care Provider] - 05/25/19 10:00 am Forms: Discharge Instructions
[2019-05-20] MEDS ORDERED: Diflucan 100 MG PO SCH (10:00)
== END 2019-05-19 17:15 | disposition home or self-care (01) ==
LOC: ED 11:16 → MED SURG 15:14
PROVIDERS: ADMIT Family Medicine; ATTEND Family Medicine
DX: N39.0 Urinary tract infection, site not specified (principal); D72.829 Elevated white blood cell count, unspecified; I10 Essential (primary) hypertension; G35 Multiple sclerosis; J44.9 Chronic obstructive pulmonary disease, unspecified; E11.9 Type 2 diabetes mellitus without complications; E03.9 Hypothyroidism, unspecified; G89.29 Other chronic pain; Z79.899 Other long term (current) drug therapy; F17.200 Nicotine dependence, unspecified, uncomplicated
CPT/HCPCS: 36000; 36415; 80053; 81001; 82150; 82962; 83605; 83690; 85025; 87040; 94150; 94640; 94760; 96360; 96365; 96366; 99285; G0378; J3370; A9270-GY

== ENCOUNTER 2019-08-18 15:44 | Emergency (ER) | payer MEDICAID ==
[2019-08-18] MEDS ORDERED: ZOFRAN ODT 4 MG ONE (15:52)
[2019-08-18] MEDS ORDERED: MORPHINE SULFATE 4 MG INJ ONE (15:52)
[2019-08-18] MEDS: MORPHINE SULFATE 4 MG INJ IM ONE (15:56)
[2019-08-18] MEDS: ZOFRAN ODT 4 MG PO ONE (16:01)
[2019-08-18] MEDS ORDERED: TENIVAC VIAL IM ONE (16:02)
[2019-08-18] MEDS: Adacel Vial IM ONE (16:04)
[2019-08-18] MEDS ORDERED: Adacel Vial IM ONE (16:04)
--- NOTE | 2019-08-18 16:43 | XRAY ---
Indication: Pain following fall. 2 views of the sternum demonstrates surgical clips base of the neck, old right clavicle fracture, and proximal right humerus enchondroma. No other bony, articular, or soft tissue abnormalities.
--- NOTE | 2019-08-18 16:44 | XRAY ---
Indication: Congestion. Status post fall. Comparison: August 02, 2019. PA/lateral chest again demonstrates normal heart and lungs. Bony thorax intact again with mild degenerative changes, old right clavicle fracture, proximal right humerus enchondroma, and surgical clips of the neck. No new/acute findings.
--- NOTE | 2019-08-18 16:45 | XRAY ---
Indication: Pain following fall. Comparison: None 2 views of the left ribs demonstrates nondisplaced anterior 7th rib fracture. Elsewhere multiple surgical clips base of the neck and old right clavicle fracture. No other bony, articular, or soft tissue abnormalities.
--- NOTE | 2019-08-18 16:49 | XRAY ---
Indication: Pain following fall. Comparison: None 5 views of the facial bones demonstrates patient to be edentulous with clear paranasal sinuses. Incidental multiple surgical clips base of the neck and minimal right carotid calcifications. No other bony, articular, or soft tissue abnormalities.
[2019-08-18 17:13] VITALS: BP 112/75; PULSE 71; O2SAT 96
--- NOTE | 2019-08-18 17:18 | ERPHSYRPT ---
- History of Present Illness Time Seen by Provider: 08/18/19 15:48 Source: patient, family Exam Limitations: no limitations Patient Subjective Stated Complaint: Pt fell a few days ago on carpeted [place] and hit her chin and medial and left chest, chin is bruised, no bruising on chest, can not take a deep breath, rates pain as 7/10 to the chest Triage Nursing Assessment: Pt brought into the ER via a wheelchair, vitals wnl, skin tear to left elbow, abrasions to left knee, rates pain 7/10, pulses normal , crackle lung sounds throughout Physician History: Left Ant lower rib pain with tenderness AND Ant sternal pain, Chin pain and bruise S/P fall 2 days ago Occurred: days ago (2) Reason for Fall: tripped Injuries/Pain Location: face, chest Loss of Consciousness: no loss of consciousness Quality: sharpness Severity of Pain-Max: moderate Severity of Pain-Current: moderate Modifying Factors: Improves With: nothing Associated Symptoms (Fall): chest pain, No abdominal pain, No back pain, No confusion, No dizziness, No extremity injury, No headache, No lightheadedness, No muscle spasms, No nausea, No neck pain, No ringing in ears, No seizures, No shortness of breath, No slurred speech, No trouble walking Allergies/Adverse Reactions: amoxicillin trihydrate [From Augmentin] Allergy (Severe, Verified 08/18/19 16:00 ) cefaclor [From Ceclor] Allergy (Severe, Verified 08/18/19 16:00) syncope levofloxacin [From Levaquin] Allergy (Severe, Verified 08/18/19 16:00) syncope potassium clavulanate [From Augmentin] Allergy (Severe, Verified 08/18/19 16:00) Cephalosporins Allergy (Mild, Verified 08/18/19 16:00) doxycycline Allergy (Mild, Verified 08/18/19 16:00) sertraline HCl [From Zoloft] Allergy (Mild, Verified 08/18/19 16:00) clindamycin Allergy (Verified 08/18/19 16:00) sulfamethoxazole [From Bactrim] Allergy (Verified 08/18/19 16:00) trimethoprim [From Bactrim] Allergy (Verified 08/18/19 16:00) Home Medications: Baclofen 10 mg [Lioresal 10 mg] 10 mg PO DAILY 02/28/13 [History] Cetirizine HCl [Zyrtec] 10 mg PO DAILY 02/28/13 [History] Docusate Sodium [Doc-Q-Lace] 100 mg PO HS 02/28/13 [History] Estrogens, Conjugated [Premarin] 0.3 mg PO DAILY 02/28/13 [History] Fluoxetine HCl [Prozac] 80 mg PO DAILY 02/28/13 [History] Gabapentin 800 mg PO BID 02/28/13 [History] Magnesium Oxide 400 mg [Mag-Ox 400] 800 mg PO DAILY 02/28/13 [History] Oxybutynin Chloride 5 mg [Ditropan 5 MG] 5 mg PO BID 02/28/13 [History] Simvastatin 20Mg [Zocor 20Mg] 20 mg PO HS 02/28/13 [History] Budesonide/Formoterol Fumarate [Symbicort 160-4.5 Mcg Inhaler] 2 puffs IH BID [History] Fluconazole [Diflucan] 200 mg PO WEEKLY 05/26/14 [History] Liothyronine Sodium 5 mcg PO DAILY 05/26/14 [History] Metformin HCl 500 mg [Glucophage 500 MG] 500 mg PO BIDWMEALS 05/26/14 [ History] Tamsulosin HCl 0.4 mg [Flomax 0.4 MG] 0.8 mg PO HS 06/08/15 [History] Albuterol Sulfate [Albuterol Sulfate Hfa] 2 puffs IH Q4HPRN PRN 03/06/19 [ History] Alcaftadine [Lastacaft] 1 drop OP DAILY PRN PRN 03/06/19 [History] Estrogens,Conjugated [Premarin Vaginal Cream] 1 applic INTRAVAGIN DAILY PRN [History] Fluticasone Propionate [Flonase NASAL] 2 spray IH DAILY 03/06/19 [History] Furosemide 20 mg [Lasix 20 mg] 20 mg PO DAILY 03/06/19 [History] Hydrocodone/Acetaminophen [Hydrocodone-Acetamin 10-325 mg] 1 each PO Q6HPRN PRN 03/06/19 [History] Interferon Beta-1A/Albumin [Rebif Rebidose 22 Mcg/0.5 ml] 0.5 ml SQ UD 03/06/19 [History] Ipratropium [place] Hfa [Atrovent HFA MDI] 2 puff IH Q4HPRN PRN 03/06/19 [ History] Levothyroxine Sodium 150 mcg PO DAILY 03/06/19 [History] Meloxicam 7.5 mg [Mobic 7.5 MG] 7.5 mg PO BID 03/06/19 [History] Montelukast Sodium 10 mg PO DAILY 03/06/19 [History] Potassium Chloride [K-Dur] 20 meq PO DAILY 03/06/19 [History] Ranitidine HCl [Taladine] 150 mg PO BID 03/06/19 [History] predniSONE [Prednisone] 20 mg PO DAILY 03/06/19 [History] Hx Tetanus, Diphtheria Vaccination/Date Given: Yes Hx Influenza Vaccination/Date Given: No Hx Pneumococcal Vaccination/Date Given: No - Review of Systems Constitutional: No Fever, No Chills Eyes: No Symptoms Ears, Nose, & Throat: No Symptoms Respiratory: No Cough, No Dyspnea Cardiac: No Chest Pain, No Edema, No Syncope Abdominal/Gastrointestinal: No Abdominal Pain, No Nausea, No Vomiting, No Diarrhea Genitourinary Symptoms: No Dysuria Musculoskeletal: Other (Left Ant lower rib pain with tenderness AND Ant sternal pain, Chin pain and bruise ), No Back Pain, No Neck Pain Skin: No Rash Neurological: No Dizziness, No Focal Weakness, No Irritability, No Sensory Changes Psychological: No Symptoms, No Drug Abuse, No Anxiety, No Suicidal Ideations Endocrine: No Symptoms All Other Systems: Reviewed and Negative - Past Medical History Pertinent Past Medical History: Yes Neurological History: Other ENT History: Other Cardiac History: Arrhythmia, Other Respiratory History: Asthma, COPD Endocrine Medical History: Diabetes Type II Musculoskeletal History: Other GI Medical History: No Pertinent History History: Other Psycho-Social History: Depression Female Reproductive Disorders: No Pertinent History Other Medical History: MS. Sinus Tachycardia. Multiple medication/abtx allergies, freq UTI - Past Surgical History Past Surgical History: Yes Neuro Surgical History: No Pertinent History Cardiac: No Pertinent History Respiratory: No Pertinent History Gastrointestinal: No Pertinent History Genitourinary: No Pertinent History Musculoskeletal: No Pertinent History Female Surgical History: Hysterectomy Other Surgical History: pt had thyroidectomy also had surgery on stomach where she gave her self shots for ms area had a nodular area that needed removed,MRSA on stomach I&D. - Social History Smoking Status: Current every day smoker How long have you smoked: years Exposure to second hand smoke: Yes Drug Use: none Patient Lives Alone: Yes - Female History Hx Now: No - Nursing Vital Signs Nursing Vital Signs: Initial Vital Signs Temperature 98.4 F 08/18/19 15:45 Pulse Rate 70 08/18/19 15:45 Blood Pressure 124/81 08/18/19 15:45 O2 Sat by Pulse Oximetry 94 L 08/18/19 15:45 Pain Scale Pain Intensity 7 - [place] Coma Score Best Eye Response ([place]): (4) open spontaneously Best Verbal Response ([place]): (5) oriented Best Motor Response ([place]): (6) obeys commands [place] Total: 15 - Physical Exam General Appearance: no apparent distress, alert Head Injury: tenderness (Bruise on chin, with mild tenderness) Eye Exam: PERRL/EOMI ENT Exam: airway nml Neck Exam: supple, trachea midline, full range of motion, normal alignment, normal inspection, No tenderness Respiratory/Chest Exam: chest tenderness, normal breath sounds, rib tenderness ( Left Ant Lower rib cage and sternal tenderness), other, No respiratory distress Cardiovascular Exam: normal heart sounds, regular rate/rhythm Gastrointestinal Exam: soft, No tenderness, No distention, No guarding, No ecchymosis Back Exam: normal inspection, No vertebral tenderness Extremity Exam: normal inspection, normal range of motion, pelvis stable, No deformities Neurologic Exam: alert, oriented x 3, cooperative, 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, normal mood/affect, nml cerebellar function, nml station & gait, sensation nml, No motor deficits Skin Exam: normal color, warm, dry SpO2 Interpretation: normal SpO2: 96 O2 Delivery: Room Air - Course Nursing assessment & vital signs reviewed: Yes - Radiology Exams Ribs X-ray Interpretation: Discussed w/ radiologist, Non-displaced Fracture, Other ( right 7th rib Fx) Chest X-ray Interpretation: Discussed w/ radiologist, Non-displaced Fracture, Other ( Right 7th Rib F) Other X-ray Interpretation: Discussed w/ radiologist, Other (Sternal X ray- WNL) Facial X-ray Interpretation: Discussed w/ radiologist, No Fracture Ordered Tests: Active Orders 24 hr Category Date Time Status CHEST 2 VIEWS (PA AND LAT) Stat Exams 08/18/19 16:29 Completed FACIAL BONES (MINIMUM 3 VIEWS) Stat Exams 08/18/19 16:30 Completed RIBS UNILATERAL Stat Exams 08/18/19 16:30 Completed STERNUM (2 VIEW) Stat Exams 08/18/19 16:30 Completed Medication Summary Discontinued Medications Generic Name Dose Route Start Last Admin Trade Name Freq PRN Reason Stop Dose Admin Diphtheria/Tetanus/Acell Pertussis 0.5 ml 08/18/19 15:50 08/18/19 16:04 Adacel Vial IM 08/18/19 15:51 0.5 ml .ONCE ONE Administration Diphtheria/Tetanus/Acell Pertussis Confirm 08/18/19 16:04 Adacel Vial Administered 08/18/19 16:05 Dose 0.5 ml IM .STK-MED ONE Morphine Sulfate 4 mg 08/18/19 15:48 08/18/19 15:56 Morphine Sulfate 4 Mg Inj IM 08/18/19 15:49 4 mg STAT ONE Administration Morphine Sulfate Confirm 08/18/19 15:52 Morphine Sulfate 4 Mg Inj Administered 08/18/19 15:53 Dose 4 mg .ROUTE .STK-MED ONE Ondansetron HCl 4 mg 08/18/19 15:48 08/18/19 16:01 Zofran Odt 4 Mg PO 08/18/19 15:49 4 mg STAT ONE Administration Ondansetron HCl Confirm 08/18/19 15:52 Zofran Odt 4 Mg Administered 08/18/19 15:53 Dose 4 mg .ROUTE .STK-MED ONE Tetanus/Diphtheria Toxoids Adsorbed Confirm 08/18/19 16:02 Tenivac Vial Administered 08/18/19 16:03 Dose 0.5 ml IM .STK-MED ONE - Progress Progress: improved Counseled pt/family regarding: diagnosis, need for follow-up, rad results - Departure Departure Disposition: Home Clinical Impression: Fracture of rib of left side Qualifiers: Encounter type: initial encounter Rib fracture type: single rib Fracture type: closed Qualified Code(s): S22.32XA - Fracture of one rib, left side, initial encounter for closed fracture Contusion of face Qualifiers: Encounter type: initial encounter Qualified Code(s): S00.83XA - Contusion of other part of head, initial encounter Condition: Stable Critical Care Time: No Referrals: SARA CARRASCO [Primary Care Provider] - Instructions: Contusion (DC), Rib Fracture (DC) Plan of Treatment: continue home treatment. See PCP in one to 2 days.
== END 2019-08-18 17:38 | disposition home or self-care (01) ==
LOC: ED 15:44
DX: S22.32XA Fracture of one rib, left side, initial encounter for closed fracture (principal); S00.83XA Contusion of other part of head, initial encounter; S51.012A Laceration without foreign body of left elbow, initial encounter; W01.0XXA Fall on same level from slipping, tripping and stumbling without subsequent striking against object, initial encounter; S80.212A Abrasion, left knee, initial encounter; R07.89 Other chest pain; R51 Headache; Z79.899 Other long term (current) drug therapy; Z79.891 Long term (current) use of opiate analgesic; Z79.84 Long term (current) use of oral hypoglycemic drugs; E11.9 Type 2 diabetes mellitus without complications
CPT/HCPCS: 70150; 71046; 71100; 71120; 90471; 90714; 90715; 96372; 99284; J2270; Q0162

== ENCOUNTER 2019-12-22 18:40 | Emergency (ER) | payer MEDICAID ==
[2019-12-22] MEDS ORDERED: BABY ASPIRIN 81 MG CHEW PO ONE (18:53)
[2019-12-22] MEDS ORDERED: Sodium Chloride 0.9% 1000 ML 1,000 ML IV STA (18:53)
[2019-12-22] MEDS ORDERED: DUONEB 0.5-3 MG/3 ml Neb IH ONE ×2 (18:55→19:32)
[2019-12-22] MEDS ORDERED: DECADRON 10MG INJ. IV ONE (18:55)
[2019-12-22 19:01] LABS: Hematocrit 41.5 % (35-47); Hemoglobin 14.4 gm/dl (12.0-16.0); Mean Cell Volume 85.9 fl (78-100); Mean Corpuscular Hemoglobin 29.8 pg (26-32); Mean Corpuscular Hgb Concent. 34.7 g/dl (32-36); Mean Platelet Volume 10.5 fl (7.5-11.0); Platelet Count 388 K/mm3 (150-450); Red Blood Count 4.83 M/mm3 (4.1-5.4); Red Cell Distribution Width 14.2 % (11.5-14.0); White Blood Count 8.6 K/mm3 (4.0-10.5)
[2019-12-22 19:08] LABS: ALKALINE PHOSPHATASE 131 U/L (38-126); ANION GAP 15.1 MEQ/L (5-15); BLOOD UREA NITROGEN 14 mg/dL (7-17); CHLORIDE 105 mmol/L (98-107); Calcium 10.5 mg/dL (8.4-10.2); Carbon Dioxide 19 mmol/L (22-30); Creatinine 1 0.72 mg/dL (0.52-1.04); Glucose 101 mg/dL (74-106); Potassium 3.2 mmol/L (3.5-5.1); SGOT/AST 88 U/L (14-36); SGPT/ALT 49 U/L (0-35); SODIUM 136 mmol/L (137-145); Total Protein 7.7 g/dL (6.3-8.2)
[2019-12-22 19:17] LABS: NT PRO BNP 51.3 pg/mL (0-900)
[2019-12-22] MEDS ORDERED: BABY ASPIRIN 81 MG CHEW ONE (19:27)
[2019-12-22] MEDS ORDERED: Sodium Chloride 0.9% 1000 ML 1,000 ML ONE (19:27)
[2019-12-22] MEDS ORDERED: DECADRON 10MG INJ. ONE (19:27)
[2019-12-22 19:41] VITALS: O2SAT 99
--- NOTE | 2019-12-22 20:01 | ERPHSYRPT ---
- History of Present Illness Time Seen by Provider: 12/22/19 18:48 Source: patient, EMS Patient Subjective Stated Complaint: states has been having shortness of breath for three days. hx copd and boyfriend recently was hospitalized for same c/o. denies fever. Triage Nursing Assessment: to room per cart. skin w/d, color normal, resp nonlabored. occasional dry cough noted. Physician History: Patient is here with cough, cold, congestion. No chest pain. Mild shortness of breath. Wheezing. Known history of COPD. Patient has not seen Dr. Garcia, her PCP for this. Location: chest Quality: cough, cold, congestion Radiation: none Severity: moderate Duration: 2-3 days Timing: gradual Modifying factors/associated signs and symptoms: home albuterol Allergies/Adverse Reactions: amoxicillin trihydrate [From Augmentin] Allergy (Severe, Verified 08/18/19 16:00 ) cefaclor [From Ceclor] Allergy (Severe, Verified 08/18/19 16:00) syncope levofloxacin [From Levaquin] Allergy (Severe, Verified 08/18/19 16:00) syncope potassium clavulanate [From Augmentin] Allergy (Severe, Verified 08/18/19 16:00) Cephalosporins Allergy (Mild, Verified 08/18/19 16:00) doxycycline Allergy (Mild, Verified 08/18/19 16:00) sertraline HCl [From Zoloft] Allergy (Mild, Verified 08/18/19 16:00) clindamycin Allergy (Verified 08/18/19 16:00) sulfamethoxazole [From Bactrim] Allergy (Verified 08/18/19 16:00) trimethoprim [From Bactrim] Allergy (Verified 08/18/19 16:00) Home Medications: Baclofen 10 mg [Lioresal 10 mg] 10 mg PO DAILY 02/28/13 [History] Cetirizine HCl [Zyrtec] 10 mg PO DAILY 02/28/13 [History] Docusate Sodium [Doc-Q-Lace] 100 mg PO HS 02/28/13 [History] Estrogens, Conjugated [Premarin] 0.3 mg PO DAILY 02/28/13 [History] Fluoxetine HCl [Prozac] 80 mg PO DAILY 02/28/13 [History] Gabapentin 800 mg PO BID 02/28/13 [History] Magnesium Oxide 400 mg [Mag-Ox 400] 800 mg PO DAILY 02/28/13 [History] Oxybutynin Chloride 5 mg [Ditropan 5 MG] 5 mg PO BID 02/28/13 [History] Simvastatin 20Mg [Zocor 20Mg] 20 mg PO HS 02/28/13 [History] Budesonide/Formoterol Fumarate [Symbicort 160-4.5 Mcg Inhaler] 2 puffs IH BID [History] Fluconazole [Diflucan] 200 mg PO WEEKLY 05/26/14 [History] Liothyronine Sodium 5 mcg PO DAILY 05/26/14 [History] Metformin HCl 500 mg [Glucophage 500 MG] 500 mg PO BIDWMEALS 05/26/14 [ History] Tamsulosin HCl 0.4 mg [Flomax 0.4 MG] 0.8 mg PO HS 06/08/15 [History] Albuterol Sulfate [Albuterol Sulfate Hfa] 2 puffs IH Q4HPRN PRN 03/06/19 [ History] Alcaftadine [Lastacaft] 1 drop OP DAILY PRN PRN 03/06/19 [History] Estrogens,Conjugated [Premarin Vaginal Cream] 1 applic INTRAVAGIN DAILY PRN [History] Fluticasone Propionate [Flonase NASAL] 2 spray IH DAILY 03/06/19 [History] Furosemide 20 mg [Lasix 20 mg] 20 mg PO DAILY 03/06/19 [History] Hydrocodone/Acetaminophen [Hydrocodone-Acetamin 10-325 mg] 1 each PO Q6HPRN PRN 03/06/19 [History] Interferon Beta-1A/Albumin [Rebif Rebidose 22 Mcg/0.5 ml] 0.5 ml SQ UD 03/06/19 [History] Ipratropium [place] Hfa [Atrovent HFA MDI] 2 puff IH Q4HPRN PRN 03/06/19 [ History] Levothyroxine Sodium 150 mcg PO DAILY 03/06/19 [History] Meloxicam 7.5 mg [Mobic 7.5 MG] 7.5 mg PO BID 03/06/19 [History] Montelukast Sodium 10 mg PO DAILY 03/06/19 [History] Potassium Chloride [K-Dur] 20 meq PO DAILY 03/06/19 [History] Ranitidine HCl [Taladine] 150 mg PO BID 03/06/19 [History] predniSONE [Prednisone] 20 mg PO DAILY 03/06/19 [History] Hx Tetanus, Diphtheria Vaccination/Date Given: Yes Hx Influenza Vaccination/Date Given: No Hx Pneumococcal Vaccination/Date Given: Yes - Review of Systems Constitutional: No Fever, No Chills Eyes: No Symptoms Ears, Nose, & Throat: No Symptoms Respiratory: Dyspnea, Wheezing, No Cough Cardiac: No Chest Pain, No Edema, No Syncope Abdominal/Gastrointestinal: No Abdominal Pain, No Nausea, No Vomiting, No Diarrhea Genitourinary Symptoms: No Dysuria Musculoskeletal: No Back Pain, No Neck Pain Skin: No Rash Neurological: No Dizziness, No Focal Weakness, No Sensory Changes Psychological: No Symptoms Endocrine: No Symptoms All Other Systems: Reviewed and Negative - Past Medical History Pertinent Past Medical History: Yes Neurological History: Other ENT History: Other Cardiac History: Arrhythmia, Other Respiratory History: COPD Endocrine Medical History: Diabetes Type II Musculoskeletal History: Other GI Medical History: No Pertinent History History: Other Psycho-Social History: Depression Female Reproductive Disorders: No Pertinent History Other Medical History: MS. Sinus Tachycardia. Multiple medication/abtx allergies, freq UTI - Past Surgical History Past Surgical History: Yes Neuro Surgical History: No Pertinent History Cardiac: No Pertinent History Respiratory: No Pertinent History Gastrointestinal: No Pertinent History Genitourinary: No Pertinent History Musculoskeletal: No Pertinent History Female Surgical History: Hysterectomy Other Surgical History: pt had thyroidectomy also had surgery on stomach where she gave her self shots for ms area had a nodular area that needed removed,MRSA on stomach I&D. - Social History Smoking Status: Current every day smoker How long have you smoked: 45 Exposure to second hand smoke: Yes Drug Use: none Patient Lives Alone: Yes - Nursing Vital Signs Nursing Vital Signs: Initial Vital Signs Temperature 99.2 F 12/22/19 18:59 Pulse Rate 84 12/22/19 18:59 Respiratory Rate 18 12/22/19 18:59 O2 Sat by Pulse Oximetry 96 12/22/19 18:59 Pain Scale Pain Intensity 0 - Physical Exam General Appearance: no apparent distress, alert Eye Exam: PERRL/EOMI, eyes nml inspection Ears, Nose, Throat Exam: normal ENT inspection, TMs normal, pharynx normal, moist mucous membranes Neck Exam: normal inspection, non-tender, supple, full range of motion Respiratory Exam: wheezing, No normal breath sounds, No lungs clear (Wheezing throughout), No respiratory distress Cardiovascular Exam: regular rate/rhythm, normal heart sounds, normal peripheral pulses Gastrointestinal/Abdomen Exam: soft, normal bowel sounds, No tenderness, No mass Back Exam: normal inspection, normal range of motion, No CVA tenderness, No vertebral tenderness Extremity Exam: normal inspection, normal range of motion, pelvis stable Neurologic Exam: alert, oriented x 3, cooperative, normal mood/affect, nml cerebellar function, nml station & gait, sensation nml, No motor deficits Skin Exam: normal color, warm, dry, No rash Lymphatic Exam: No adenopathy SpO2: 99 Ordered Tests: Active Orders 24 hr Category Date Time Status [employer]ence [employer] In[employer] STAT Care 12/22/19 18:54 Active EKG-ER Only STAT Care 12/22/19 18:53 Active IV Insertion STAT Care 12/22/19 18:53 Active CHEST 2 VIEWS (PA AND LAT) Stat Exams 12/22/19 19:09 Taken CBC W DIFF Stat Lab 12/22/19 18:53 Completed CMP Stat Lab 12/22/19 18:53 Completed LIPASE Stat Lab 12/22/19 18:53 Completed Manual Differential NC Stat Lab 12/22/19 18:53 Completed NT PRO BNP Stat Lab 12/22/19 18:53 Completed TROPONIN Q3H Lab 12/22/19 18:53 Completed TROPONIN Q3H Lab 12/22/19 22:00 Ordered TROPONIN Q3H Lab 12/23/19 01:00 Ordered TROPONIN Q3H Lab 12/23/19 04:00 Ordered TROPONIN Q3H Lab 12/23/19 07:00 Ordered Peak Expiratory Flow Rate ONCE RT 12/22/19 19:38 Active Respiratory Therapy Assessment DAILY RT 12/22/19 19:38 Active Medication Summary Discontinued Medications Generic Name Dose Route Start Last Admin Trade Name Freq PRN Reason Stop Dose Admin Albuterol/Ipratropium 3 ml 12/22/19 18:55 12/22/19 19:34 Duoneb 0.5-3 Mg/3 Ml Neb IH 12/22/19 18:56 3 ml STAT ONE Administration Albuterol/Ipratropium Confirm 12/22/19 19:32 Duoneb 0.5-3 Mg/3 Ml Neb Administered 12/22/19 19:33 Dose 3 ml IH .STK-MED ONE Aspirin 324 mg 12/22/19 18:53 12/22/19 19:29 Baby Aspirin 81 Mg Chew PO 12/22/19 18:54 324 mg STAT ONE Administration Aspirin Confirm 12/22/19 19:27 Baby Aspirin 81 Mg Chew Administered 12/22/19 19:28 Dose 324 mg .ROUTE .STK-MED ONE Dexamethasone Sodium Phosphate 10 mg 12/22/19 18:55 12/22/19 19:33 Decadron 10mg Inj. IV 12/22/19 18:56 10 mg STAT ONE Administration Dexamethasone Sodium Phosphate Confirm 12/22/19 19:27 Decadron 10mg Inj. Administered 12/22/19 19:28 Dose 10 mg .ROUTE .STK-MED ONE Sodium Chloride 1,000 mls @ 999 mls/hr 12/22/19 18:53 12/22/19 19:30 Sodium Chloride 0.9% 1000 Ml IV 12/22/19 19:53 999 mls/hr .Q1H1M STA Administration Sodium Chloride Confirm 12/22/19 19:27 Sodium Chloride 0.9% 1000 Ml Administered 12/22/19 19:28 Dose 1,000 mls @ ud .ROUTE .STK-MED ONE Lab/Rad Data: Laboratory Result Diagrams 12/22/19 18:53 12/22/19 18:53 Laboratory Results 12/22/19 12/22/19 12/22/19 Range/Units 18:53 18:53 18:53 WBC (4.0-10.5) K/mm3 RBC (4.1-5.4) M/mm3 Hgb (12.0-16.0) gm/dl Hct (35-47) % MCV (78-100) fl MCH (26-32) pg MCHC (32-36) g/dl RDW (11.5-14.0) % Plt Count (150-450) K/mm3 MPV (7.5-11.0) fl Absolute Granulocytes (1.4-6.9) Sodium 136 L (137-145) mmol/L Potassium 3.2 L (3.5-5.1) mmol/L Chloride 105 (98-107) mmol/L Carbon Dioxide 19 L (22-30) mmol/L Anion Gap 15.1 H (5-15) MEQ/L BUN 14 (7-17) mg/dL Creatinine 0.72 (0.52-1.04) mg/dL Estimated GFR > 60.0 ML/MIN Glucose 101 (74-106) mg/dL Calcium 10.5 H (8.4-10.2) mg/dL Total Bilirubin 0.80 (0.2-1.3) mg/dL AST 88 H (14-36) U/L ALT 49 H (0-35) U/L Alkaline Phosphatase 131 H (38-126) U/L Troponin I < 0.012 (0.000-0.034) ng/mL NT-Pro-B Natriuret Pep 51.3 (0-900) pg/mL Serum Total Protein 7.7 (6.3-8.2) g/dL Albumin 4.0 (3.5-5.0) g/dL Lipase 163 (23-300) U/L 12/22/19 Range/Units 18:53 WBC 8.6 (4.0-10.5) K/mm3 RBC 4.83 (4.1-5.4) M/mm3 Hgb 14.4 (12.0-16.0) gm/dl Hct 41.5 (35-47) % MCV 85.9 (78-100) fl MCH 29.8 (26-32) pg MCHC 34.7 (32-36) g/dl RDW 14.2 H (11.5-14.0) % Plt Count 388 (150-450) K/mm3 MPV 10.5 (7.5-11.0) fl Absolute Granulocytes 5.00 (1.4-6.9) Sodium (137-145) mmol/L Potassium (3.5-5.1) mmol/L Chloride (98-107) mmol/L Carbon Dioxide (22-30) mmol/L Anion Gap (5-15) MEQ/L BUN (7-17) mg/dL Creatinine (0.52-1.04) mg/dL Estimated GFR ML/MIN Glucose (74-106) mg/dL Calcium (8.4-10.2) mg/dL Total Bilirubin (0.2-1.3) mg/dL AST (14-36) U/L ALT (0-35) U/L Alkaline Phosphatase (38-126) U/L Troponin I (0.000-0.034) ng/mL NT-Pro-B Natriuret Pep (0-900) pg/mL Serum Total Protein (6.3-8.2) g/dL Albumin (3.5-5.0) g/dL Lipase (23-300) U/L - Progress Progress: improved Progress Note: 12/22/19 20:05 - We;ll obtain basic labs, fluids, EKG, troponin, chest x-ray - I feel comfortable with one time negative troponin given symptoms have improved and started greater then 6 hours ago. - EKG shows no ST changes - my read. See full read below. - O2 saturations consistently greater than 95%. - CXR shows no pneumonia, pneumothorax - my read - no other obvious lab abnormalities Reevaluation: Patient overall feeling improved. She did have 2 breathing treatments here. I did recommend the patient be admitted to the hospital this point time. She has continued wheezing, she does not sound great. Patient declines admission tonight. She states that she would like to go home. States that she will follow-up with Dr. Garcia tomorrow. Patient knows she can call EMS at any time and return here for admission to the hospital. She states her understanding. - Departure Departure Disposition: Home Clinical Impression: COPD (chronic obstructive pulmonary disease) Condition: Stable Critical Care Time: No Referrals: SARA CARRASCO [Primary Care Provider] - Instructions: Chronic Obstructive Pulmonary Disease Prescriptions: Prednisone 10 mg [Deltasone 10 mg] 60 mg PO DAILY #12 tablet
[2019-12-22 20:20] VITALS: BP 114/70; PULSE 89
[2019-12-22 21:09] LABS: Eosinophil 1 % (0.00-3.0); Lymphocytes 26 % (24-44); Monocyte 9 % (0.0-12.0); Neutrophils 64 % (36.0-66.0); Platelet Estimate NORMAL (NORMAL); Total Cells Counted 100
--- NOTE | 2019-12-23 08:33 | XRAY ---
Indication: Cough and short of breath. Comparison: August 18, 2019. PA/lateral chest remains hyperinflated and clear. Heart and mediastinal structures within normal limits. Bony thorax intact again with mild degenerative changes, old right clavicle fracture, proximal right humerus enchondroma, and surgical clips base of the neck. Impression: Continued nonacute hyperinflated chest with chronic features.
== END 2019-12-22 20:10 | disposition home or self-care (01) ==
LOC: ED 18:40
DX: J44.9 Chronic obstructive pulmonary disease, unspecified (principal); Z79.899 Other long term (current) drug therapy; E11.9 Type 2 diabetes mellitus without complications; Z79.4 Long term (current) use of insulin; F32.9 Major depressive disorder, single episode, unspecified
CPT/HCPCS: 36000; 36415; 71046; 80053; 83690; 83880; 84484; 85025; 93005; 93041; 94150; 94640; 96374; 99285; J1100; A9270-GY

== ENCOUNTER 2020-06-12 14:10 | Emergency (ER) | payer MEDICAID ==
--- NOTE | 2020-06-12 14:55 | ERPHSYRPT ---
- History of Present Illness Time Seen by Provider: 06/12/20 14:20 Source: patient Exam Limitations: no limitations Patient Subjective Stated Complaint: Pt states "About 3 weeks ago I was walking my dog and got my legs tied up with his leash and he cut my meehan. It started to heal and now it is not getting any better" Triage Nursing Assessment: PT presented alert and oriented X 3, skin pwd pt ambulates with an upright steady gait, able to speak in clear full senences. pt in no apparent respiratory distress. pt has laceration noted to left meehan, partially healed with. Physician History: Patient is a 64-year-old female who presents to our ED for evaluation of a wound to her left anterior meehan. Patient sustained a wound approximately 3 weeks ago. Patient was walking her dog and her leg got tied up in the leash. Patient subsequently developed a skin tear. Patient had been managing her skin tear on her own using hydroperoxide and topical antibiotic. Things had been going well however patient is here today because she feels the wound has not progressed. Patient is a diabetic. Patient is a smoker as well. She has no other complaints. No fevers. No nausea. No vomiting no diaphoresis. Timing/Duration: week(s) (3 weeks. ) Severity: moderate Location: none Possible Causes: no cause identified Associated Symptoms: No change in skin texture, No numbness, No paresthesia, No petechiae, No sore throat Allergies/Adverse Reactions: amoxicillin trihydrate [From Augmentin] Allergy (Severe, Verified 08/18/19 16:00) cefaclor [From Ceclor] Allergy (Severe, Verified 08/18/19 16:00) syncope levofloxacin [From Levaquin] Allergy (Severe, Verified 08/18/19 16:00) syncope potassium clavulanate [From Augmentin] Allergy (Severe, Verified 08/18/19 16:00) Cephalosporins Allergy (Mild, Verified 08/18/19 16:00) doxycycline Allergy (Mild, Verified 08/18/19 16:00) sertraline HCl [From Zoloft] Allergy (Mild, Verified 08/18/19 16:00) clindamycin Allergy (Verified 08/18/19 16:00) sulfamethoxazole [From Bactrim] Allergy (Verified 08/18/19 16:00) trimethoprim [From Bactrim] Allergy (Verified 08/18/19 16:00) Home Medications: Baclofen 10 mg [Lioresal 10 mg] 10 mg PO DAILY 02/28/13 [History] Cetirizine HCl [Zyrtec] 10 mg PO DAILY 02/28/13 [History] Docusate Sodium [Doc-Q-Lace] 100 mg PO HS 02/28/13 [History] Estrogens, Conjugated [Premarin] 0.3 mg PO DAILY 02/28/13 [History] Fluoxetine HCl [Prozac] 80 mg PO DAILY 02/28/13 [History] Gabapentin 800 mg PO BID 02/28/13 [History] Magnesium Oxide 400 mg [Mag-Ox 400] 800 mg PO DAILY 02/28/13 [History] Oxybutynin Chloride 5 mg [Ditropan 5 MG] 5 mg PO BID 02/28/13 [History] Simvastatin 20Mg [Zocor 20Mg] 20 mg PO HS 02/28/13 [History] Budesonide/Formoterol Fumarate [Symbicort 160-4.5 Mcg Inhaler] 2 puffs IH BID 05/26/14 [History] Fluconazole [Diflucan] 200 mg PO WEEKLY 05/26/14 [History] Liothyronine Sodium 5 mcg PO DAILY 05/26/14 [History] Metformin HCl 500 mg [Glucophage 500 MG] 500 mg PO BIDWMEALS 05/26/14 [History] Tamsulosin HCl 0.4 mg [Flomax 0.4 MG] 0.8 mg PO HS 06/08/15 [History] Albuterol Sulfate [Albuterol Sulfate Hfa] 2 puffs IH Q4HPRN PRN 03/06/19 [History] Alcaftadine [Lastacaft] 1 drop OP DAILY PRN PRN 03/06/19 [History] Estrogens,Conjugated [Premarin Vaginal Cream] 1 applic INTRAVAGIN DAILY PRN 03/06/19 [History] Fluticasone Propionate [Flonase NASAL] 2 spray IH DAILY 03/06/19 [History] Furosemide 20 mg [Lasix 20 mg] 20 mg PO DAILY 03/06/19 [History] Hydrocodone/Acetaminophen [Hydrocodone-Acetamin 10-325 mg] 1 each PO Q6HPRN PRN 03/06/19 [History] Interferon Beta-1A/Albumin [Rebif Rebidose 22 Mcg/0.5 ml] 0.5 ml SQ UD 03/06/19 [History] Ipratropium [place] Hfa [Atrovent HFA MDI] 2 puff IH Q4HPRN PRN 03/06/19 [History] Levothyroxine Sodium 150 mcg PO DAILY 03/06/19 [History] Meloxicam 7.5 mg [Mobic 7.5 MG] 7.5 mg PO BID 03/06/19 [History] Montelukast Sodium 10 mg PO DAILY 03/06/19 [History] Potassium Chloride [K-Dur] 20 meq PO DAILY 03/06/19 [History] Ranitidine HCl [Taladine] 150 mg PO BID 03/06/19 [History] predniSONE [Prednisone] 20 mg PO DAILY 03/06/19 [History] Hx Tetanus, Diphtheria Vaccination/Date Given: Yes Hx Influenza Vaccination/Date Given: Yes Hx Pneumococcal Vaccination/Date Given: Yes Immunizations Up to Date: Yes Travel Risk - International Travel Have you traveled outside of the country in past 3 weeks: No - Coronavirus Screening Are you exhibiting any of the following symptoms?: No Close contact with a COVID-19 positive Pt in past 14-21 Days: No - Review of Systems Constitutional: Weight Loss (Patient admits to an unintentional 50 pound weight loss in the past year), No Fever, No Chills Eyes: No Symptoms Ears, Nose, & Throat: No Symptoms Respiratory: No Cough, No Dyspnea Cardiac: No Chest Pain, No Edema, No Syncope Abdominal/Gastrointestinal: No Abdominal Pain, No Nausea, No Vomiting, No Diarrhea Genitourinary Symptoms: No Symptoms, No Dysuria Musculoskeletal: No Symptoms, No Back Pain, No Neck Pain Skin: No Rash Neurological: No Dizziness, No Focal Weakness, No Sensory Changes Psychological: No Symptoms Endocrine: No Symptoms Hematologic/Lymphatic: No Symptoms Immunological/Allergic: No Symptoms All Other Systems: Reviewed and Negative - Past Medical History Pertinent Past Medical History: Yes Neurological History: Other ENT History: Other Cardiac History: Arrhythmia Respiratory History: Asthma, COPD Endocrine Medical History: Diabetes Type II, Hypothyroidism Musculoskeletal History: Arthritis GI Medical History: No Pertinent History History: Other Psycho-Social History: Depression Female Reproductive Disorders: No Pertinent History Other Medical History: Cirrosis of liver - Past Surgical History Past Surgical History: Yes Neuro Surgical History: No Pertinent History Cardiac: No Pertinent History Respiratory: No Pertinent History Gastrointestinal: No Pertinent History Genitourinary: No Pertinent History Musculoskeletal: No Pertinent History Female Surgical History: Hysterectomy Other Surgical History: pt had thyroidectomy also had surgery on stomach where she gave her self shots for ms area had a nodular area that needed removed,MRSA on stomach I&D. - Social History Smoking Status: Current every day smoker How long have you smoked: years Exposure to second hand smoke: Yes Drug Use: none Patient Lives Alone: No - Female History Hx Now: No - Nursing Vital Signs Nursing Vital Signs: Initial Vital Signs Temperature 98.5 F 06/12/20 14:16 Pulse Rate 61 06/12/20 14:16 Respiratory Rate 20 06/12/20 14:16 Blood Pressure 108/64 06/12/20 14:16 O2 Sat by Pulse Oximetry 96 06/12/20 14:16 Pain Scale Pain Intensity 4 - Physical Exam General Appearance: no apparent distress, alert Eye Exam: PERRL/EOMI, eyes nml inspection Ears, Nose, Throat Exam: normal ENT inspection, pharynx normal, moist mucous membranes Neck Exam: normal inspection, non-tender, supple, full range of motion Respiratory Exam: normal breath sounds, lungs clear, No respiratory distress Cardiovascular Exam: regular rate/rhythm, normal heart sounds Gastrointestinal/Abdomen Exam: soft, mass, No tenderness Back Exam: normal inspection, normal range of motion, No CVA tenderness, No vertebral tenderness Extremity Exam: normal inspection, normal range of motion Neurologic Exam: alert, oriented x 3, cooperative, normal mood/affect, sensation nml, No motor deficits Skin Exam: normal color, warm, dry, other (Wound measures 1.5 x 4 cm. It is located at the anterior surface midshaft left leg. There is some necrotic tissue presumably residual from skin tear. However there is viable granulation tissue present as well.) Lymphatic Exam: No adenopathy SpO2 Interpretation: normal SpO2: 96 O2 Delivery: Room Air - Course Nursing assessment & vital signs reviewed: Yes - Radiology Exams Lower Leg X-ray Interpretation: Interpreted by me (No fractures or dislocations. No findings suggestive of osteomyelitis. Although osteomyelitis would be better assessed via MRI.) Ordered Tests: Active Orders 24 hr Category Date Time Status LOWER LEG Stat Exams 06/12/20 14:27 Taken - Progress Progress: unchanged Progress Note: 06/12/20 15:05 Patient is a smoker. Patient advised to quit smoking. Patient also advised staff that she experienced a 55 pound weight loss in the past few months. Patient referred to her primary care doctor for further evaluation of this unintentional weight loss. X-ray negative for osteomyelitis or acute findings of the left leg. No indication for antibiotics at this time. The wound however may need to be debrided and local wound care continued. Plan of care discussed with patient. She agrees to follow-up with her primary care physician within 48 hours for reevaluation. Case discussed with Dr. Linder ([place]) who has arranged for an immediate office follow-up. She will also arrange for outpatient wound evaluation and treatment by physical therapy. Dr. Garcia will see patient , in 2 days at 9:30 AM. 06/12/20 15:10 06/12/20 15:16 Discussed with .: Mariam Counseled pt/family regarding: diagnosis, need for follow-up, rad results, smoking cessation - Departure Departure Disposition: Home Clinical Impression: Leg wound, left, Weight loss, abnormal, Smoking Condition: Stable Critical Care Time: No Referrals: SARA CARRASCO [Primary Care Provider] - Additional Instructions: Discharge/Care Plan JAMESJENISE JOHNSON was seen on 06/12/20 in the Emergency Room. The patient was counseled regarding Diagnosis,Lab results, Imaging studies, need for follow up and when to return to the Emergency Room. Prescriptions given: Discharge Note I have spoken with the patient and/or caregivers. I have explained the patient's condition, diagnosis and treatment plan based on the information available to me at this time. I have answered the patient's and/or caregiver's questions and addressed any concerns. The patient and/or caregivers have as good understanding of the patient's diagnosis, condition and treatment plan as can be expected at this point. The vital signs have been stable. The patient's condition is stable and appropriate for discharge from the emergency department. The patient will pursue further outpatient evaluation with the primary care physician or other designated or consulting physician as outlined in the discharge instructions. The patient and/or caregivers are agreeable to this plan of care and follow-up instructions have been explained in detail. The patient and/or caregivers have received these instruction. The patient/and or caregivers are aware that any significant change in condition or worsening of symptoms should prompt an immediate return to this or the closest emergency department or call 911.
--- NOTE | 2020-06-12 15:12 | XRAY ---
Indication: Anterior laceration following injury. Comparison: None AP/lateral left lower leg demonstrates tiny inferior patella spurring. No other bony, articular, or soft tissue abnormalities.
[2020-06-12 15:25] VITALS: BP 96/57; PULSE 67; O2SAT 98
== END 2020-06-12 15:26 | disposition home or self-care (01) ==
LOC: ED 14:10
DX: S81.812A Laceration without foreign body, left lower leg, initial encounter (principal); W45.8XXA Other foreign body or object entering through skin, initial encounter; Y93.K1 Activity, walking an animal; Y92.9 Unspecified place or not applicable; Z79.899 Other long term (current) drug therapy; R63.4 Abnormal weight loss; Z68.43 Body mass index [BMI] 50.0-59.9, adult; J44.9 Chronic obstructive pulmonary disease, unspecified; E03.9 Hypothyroidism, unspecified; E11.9 Type 2 diabetes mellitus without complications; K74.60 Unspecified cirrhosis of liver; Z86.14 Personal history of Methicillin resistant Staphylococcus aureus infection; Z87.898 Personal history of other specified conditions; Z72.0 Tobacco use
CPT/HCPCS: 73590; 99283

== ENCOUNTER 2020-11-03 16:40 | Emergency (ER) | payer MEDICAID ==
--- NOTE | 2020-11-03 16:45 | ERPHSYRPT ---
- History of Present Illness Time Seen by Provider: 11/03/20 16:45 Source: patient, EMS Exam Limitations: no limitations Physician History: This is a 65-year-old diabetic female who has had left side thoracic level paraspinous muscle pain for over 2 months. She is been seen by her primary care physician. Patient was given a prescription for a lidocaine/pain patch which she is wearing. She also has [place] narcotics at home. She was started on Medrol Dosepak and Robaxin last night and is only taken a couple doses of that medication. Patient denies any acute trauma. Patient is a chronic smoker. Patient has a chronic cough. Patient no longer sees a pain specialist. Patient is here today because her pain is not improving. Patient has no chest pain. She denies shortness of breath. Method of Injury: other (No acute trauma or injury) Quality: sharp, stabbing Back Pain Location: paraspinous muscles (Thoracic spine level) Severity of Pain-Max: moderate Severity of Pain-Current: moderate Associated Symptoms: denies symptoms, muscle spasms Previous symptoms: same symptoms as today, recently seen, recently treated Allergies/Adverse Reactions: amoxicillin trihydrate [From Augmentin] Allergy (Severe, Verified 11/03/20 16:57) cefaclor [From Ceclor] Allergy (Severe, Verified 11/03/20 16:57) syncope levofloxacin [From Levaquin] Allergy (Severe, Verified 11/03/20 16:57) syncope potassium clavulanate [From Augmentin] Allergy (Severe, Verified 11/03/20 16:57) Cephalosporins Allergy (Mild, Verified 11/03/20 16:57) doxycycline Allergy (Mild, Verified 11/03/20 16:57) sertraline HCl [From Zoloft] Allergy (Mild, Verified 11/03/20 16:57) clindamycin Allergy (Verified 11/03/20 16:57) sulfamethoxazole [From Bactrim] Allergy (Verified 11/03/20 16:57) trimethoprim [From Bactrim] Allergy (Verified 11/03/20 16:57) Home Medications: Baclofen 10 mg [Lioresal 10 mg] 10 mg PO DAILY 02/28/13 [History] Cetirizine HCl [Zyrtec] 10 mg PO DAILY 02/28/13 [History] Docusate Sodium [Doc-Q-Lace] 100 mg PO HS 02/28/13 [History] Estrogens, Conjugated [Premarin] 0.3 mg PO DAILY 02/28/13 [History] Fluoxetine HCl [Prozac] 80 mg PO DAILY 02/28/13 [History] Gabapentin 800 mg PO BID 02/28/13 [History] Magnesium Oxide 400 mg [Mag-Ox 400] 800 mg PO DAILY 02/28/13 [History] Oxybutynin Chloride 5 mg [Ditropan 5 MG] 5 mg PO BID 02/28/13 [History] Simvastatin 20Mg [Zocor 20Mg] 20 mg PO HS 02/28/13 [History] Budesonide/Formoterol Fumarate [Symbicort 160-4.5 Mcg Inhaler] 2 puffs IH BID 05/26/14 [History] Liothyronine Sodium 5 mcg PO DAILY 05/26/14 [History] Metformin HCl 500 mg [Glucophage 500 MG] 500 mg PO BIDWMEALS 05/26/14 [History] Tamsulosin HCl 0.4 mg [Flomax 0.4 MG] 0.8 mg PO HS 06/08/15 [History] Albuterol Sulfate [Albuterol Sulfate Hfa] 2 puffs IH Q4HPRN PRN 03/06/19 [History] Alcaftadine [Lastacaft] 1 drop OP DAILY PRN PRN 03/06/19 [History] Fluticasone Propionate [Flonase NASAL] 2 spray IH DAILY 03/06/19 [History] Furosemide 20 mg [Lasix 20 mg] 20 mg PO DAILY 03/06/19 [History] Hydrocodone/Acetaminophen [Hydrocodone-Acetamin 10-325 mg] 1 each PO Q6HPRN PRN 03/06/19 [History] Interferon Beta-1A/Albumin [Rebif Rebidose 22 Mcg/0.5 ml] 0.5 ml SQ UD 03/06/19 [History] Ipratropium [place] Hfa [Atrovent HFA MDI] 2 puff IH Q4HPRN PRN 03/06/19 [History] Levothyroxine Sodium 150 mcg PO DAILY 03/06/19 [History] Meloxicam 7.5 mg [Mobic 7.5 MG] 7.5 mg PO BID 03/06/19 [History] Montelukast Sodium 10 mg PO DAILY 03/06/19 [History] Potassium Chloride [K-Dur] 20 meq PO DAILY 03/06/19 [History] predniSONE [Prednisone] 20 mg PO DAILY 03/06/19 [History] Hx Tetanus, Diphtheria Vaccination/Date Given: Yes Hx Influenza Vaccination/Date Given: Yes Hx Pneumococcal Vaccination/Date Given: Yes Travel Risk - International Travel Have you traveled outside of the country in past 3 weeks: No - Coronavirus Screening Are you exhibiting any of the following symptoms?: No Close contact with a COVID-19 positive Pt in past 14-21 Days: No - Review of Systems Constitutional: No Symptoms Eyes: No Symptoms Ears, Nose, & Throat: No Symptoms Respiratory: No Symptoms Cardiac: No Symptoms Abdominal/Gastrointestinal: No Symptoms Genitourinary Symptoms: No Symptoms Musculoskeletal: Back Pain (Left paraspinous muscle at the thoracic level.) Neurological: No Symptoms Psychological: No Symptoms Endocrine: No Symptoms Hematologic/Lymphatic: No Symptoms Immunological/Allergic: No Symptoms All Other Systems: Reviewed and Negative - Past Medical History Pertinent Past Medical History: Yes Neurological History: Other ENT History: Other Cardiac History: No Pertinent History Respiratory History: No Pertinent History Endocrine Medical History: Hypothyroidism Musculoskeletal History: No Pertinent History GI Medical History: No Pertinent History History: Other Psycho-Social History: Depression Female Reproductive Disorders: No Pertinent History Other Medical History: MS, hypothyroidism, L foot drop, decreased balance. - Past Surgical History Past Surgical History: Yes Neuro Surgical History: No Pertinent History Cardiac: No Pertinent History Respiratory: No Pertinent History Gastrointestinal: No Pertinent History Genitourinary: No Pertinent History Musculoskeletal: No Pertinent History Female Surgical History: Hysterectomy Other Surgical History: pt had thyroidectomy also had surgery on stomach where she gave her self shots for ms area had a nodular area that needed removed,MRSA on stomach I&D. - Social History Smoking Status: Current every day smoker How long have you smoked: years Exposure to second hand smoke: Yes Drug Use: none Patient Lives Alone: No - Nursing Vital Signs Nursing Vital Signs: Initial Vital Signs Temperature 99.0 F 11/03/20 16:45 Pulse Rate 80 11/03/20 16:45 Respiratory Rate 18 11/03/20 16:45 Blood Pressure 112/69 11/03/20 16:45 O2 Sat by Pulse Oximetry 97 11/03/20 16:45 Pain Scale Pain Intensity 9 - Physical Exam General Appearance: no apparent distress, alert, anxiety, thin Eye Exam: PERRL/EOMI, eyes nml inspection Ears, Nose, Throat Exam: normal ENT inspection, moist mucous membranes Neck Exam: normal inspection, non-tender, supple, full range of motion Respiratory Exam: airway intact, rhonchi (Bilateral left greater than right), No chest tenderness, No respiratory distress Cardiovascular Exam: regular rate/rhythm, normal heart sounds, normal peripheral pulses Gastrointestinal Exam: soft, normal bowel sounds, No tenderness Pelvic Exam: not done Rectal Exam: not done Back Exam: normal inspection, normal range of motion, muscle spasm (Left paraspinous muscles at the level of the thoracic spine.), No CVA tenderness, No vertebral tenderness Extremity Exam: normal inspection, normal range of motion, pelvis stable Neurologic Exam: alert, oriented x 3, cooperative, online trader II-XII nml as tested, normal mood/affect, nml cerebellar function, nml station & gait, sensation nml Skin Exam: normal color, warm, dry Lymphatic Exam: No adenopathy SpO2 Interpretation: normal O2 Delivery: Room Air - Course Nursing assessment & vital signs reviewed: Yes Ordered Tests: Active Orders 24 hr Category Date Time Status CHEST 2 VIEWS (PA AND LAT) Stat Exams 11/03/20 17:26 Taken - Progress Progress: improved, pain not gone completely, re-examined Progress Note: 11/03/20 18:32 Chest x-ray shows no acute cardiopulmonary process. Counseled pt/family regarding: diagnosis, need for follow-up, rad results - Departure Departure Disposition: Home Clinical Impression: Chronic back pain Condition: Stable Critical Care Time: No Referrals: SARA ABAD [Primary Care Provider] - Additional Instructions: Take all your medications as prescribed. Call your primary care doctor on November 05, 2020 for further management.
[2020-11-03 18:00] VITALS: O2SAT 96
[2020-11-03] MEDS ORDERED: Ativan 2 MG/1 ML VIAL IM ONE (18:23)
[2020-11-03] MEDS ORDERED: Hydromorphone 1 mg/ml Injection IM ONE (18:24)
[2020-11-03] MEDS ORDERED: solu-MEDROL 125 MG IM ONE (18:24)
[2020-11-03] MEDS ORDERED: ZOFRAN ODT 4 MG PO ONE (18:24)
[2020-11-03] MEDS ORDERED: Zofran 4 MG/2 ML VIAL ONE (18:40)
[2020-11-03] MEDS ORDERED: solu-MEDROL 125 MG ONE (18:41)
[2020-11-03] MEDS ORDERED: Ativan 2 MG/1 ML VIAL ONE (18:41)
[2020-11-03] MEDS ORDERED: Hydromorphone 1 mg/ml Injection ONE (18:41)
[2020-11-03 19:16] VITALS: BP 113/66; PULSE 75
--- NOTE | 2020-11-03 20:26 | XRAY ---
Indication: Cough. Comparison: June 14, 2020. PA/lateral chest remains hyperinflated and clear. Heart is not enlarged. Bony thorax intact again with mild degenerative changes, old right clavicle fracture, and right humerus enchondroma. No new/acute findings.
== END 2020-11-03 19:29 | disposition home or self-care (01) ==
LOC: ED 16:40
DX: M54.9 Dorsalgia, unspecified (principal); M79.18 Myalgia, other site; Z79.899 Other long term (current) drug therapy; Z79.891 Long term (current) use of opiate analgesic; Z79.84 Long term (current) use of oral hypoglycemic drugs; E03.9 Hypothyroidism, unspecified
CPT/HCPCS: 36000; 71046; 96374; 96375; 99284; J1170; J2060; J2405; J2930; Q0162

== ENCOUNTER 2021-04-14 18:49 | Emergency (ER) | payer MEDICAID ==
[2021-04-14] MEDS ORDERED: DUONEB 0.5-3 MG/3 ml Neb IH ONE ×2 (19:01→19:18)
[2021-04-14] MEDS ORDERED: solu-MEDROL 125 MG IV ONE (19:01)
[2021-04-14] MEDS ORDERED: Sodium Chloride 0.9% 1000 ML 1,000 ML IV STA ×2 (19:01→22:22)
--- NOTE | 2021-04-14 19:01 | ERPHSYRPT ---
- History of Present Illness Time Seen by Provider: 04/14/21 18:57 Source: patient, family, EMS Exam Limitations: no limitations Physician History: pt thought her sugar was 400 , but EMS found it to be 80. but BP was in 90s and she felt weak so they brought her in. SHe is a smoker and not short of breath but has wheezes on exam. she fell 2 weeks ago and still has hip pain , but had hip replacement 5-6 weeks ago. no chest pain , no sobreath, no abd pain. no focal neuro deficits. abd nontender without peritoneal signs. Timing/Duration: today Severity: moderate Associated Symptoms: other (low BP initially feeling weak) Allergies/Adverse Reactions: amoxicillin trihydrate [From Augmentin] Allergy (Severe, Verified 11/03/20 16:57) cefaclor [From Ceclor] Allergy (Severe, Verified 11/03/20 16:57) syncope levofloxacin [From Levaquin] Allergy (Severe, Verified 11/03/20 16:57) syncope potassium clavulanate [From Augmentin] Allergy (Severe, Verified 11/03/20 16:57) Cephalosporins Allergy (Mild, Verified 11/03/20 16:57) doxycycline Allergy (Mild, Verified 11/03/20 16:57) sertraline HCl [From Zoloft] Allergy (Mild, Verified 11/03/20 16:57) clindamycin Allergy (Verified 11/03/20 16:57) sulfamethoxazole [From Bactrim] Allergy (Verified 11/03/20 16:57) trimethoprim [From Bactrim] Allergy (Verified 11/03/20 16:57) Home Medications: Baclofen 10 mg [Lioresal 10 mg] 10 mg PO DAILY 02/28/13 [History] Cetirizine HCl [Zyrtec] 10 mg PO DAILY 02/28/13 [History] Docusate Sodium [Doc-Q-Lace] 100 mg PO HS 02/28/13 [History] Estrogens, Conjugated [Premarin] 0.3 mg PO DAILY 02/28/13 [History] Fluoxetine HCl [Prozac] 80 mg PO DAILY 02/28/13 [History] Gabapentin 800 mg PO BID 02/28/13 [History] Magnesium Oxide 400 mg [Mag-Ox 400] 800 mg PO DAILY 02/28/13 [History] Oxybutynin Chloride 5 mg [Ditropan 5 MG] 5 mg PO BID 02/28/13 [History] Simvastatin 20Mg [Zocor 20Mg] 20 mg PO HS 02/28/13 [History] Budesonide/Formoterol Fumarate [Symbicort 160-4.5 Mcg Inhaler] 2 puffs IH BID 05/26/14 [History] Liothyronine Sodium 5 mcg PO DAILY 05/26/14 [History] Metformin HCl 500 mg [Glucophage 500 MG] 500 mg PO BIDWMEALS 05/26/14 [History] Tamsulosin HCl 0.4 mg [Flomax 0.4 MG] 0.8 mg PO HS 06/08/15 [History] Albuterol Sulfate [Albuterol Sulfate Hfa] 2 puffs IH Q4HPRN PRN 03/06/19 [History] Alcaftadine [Lastacaft] 1 drop OP DAILY PRN PRN 03/06/19 [History] Fluticasone Propionate [Flonase NASAL] 2 spray IH DAILY 03/06/19 [History] Furosemide 20 mg [Lasix 20 mg] 20 mg PO DAILY 03/06/19 [History] Hydrocodone/Acetaminophen [Hydrocodone-Acetamin 10-325 mg] 1 each PO Q6HPRN PRN 03/06/19 [History] Interferon Beta-1A/Albumin [Rebif Rebidose 22 Mcg/0.5 ml] 0.5 ml SQ UD 03/06/19 [History] Ipratropium [place] Hfa [Atrovent HFA MDI] 2 puff IH Q4HPRN PRN 03/06/19 [History] Levothyroxine Sodium 150 mcg PO DAILY 03/06/19 [History] Meloxicam 7.5 mg [Mobic 7.5 MG] 7.5 mg PO BID 03/06/19 [History] Montelukast Sodium 10 mg PO DAILY 03/06/19 [History] Potassium Chloride [K-Dur] 20 meq PO DAILY 03/06/19 [History] predniSONE [Prednisone] 20 mg PO DAILY 03/06/19 [History] Hx Tetanus, Diphtheria Vaccination/Date Given: Yes Hx Influenza Vaccination/Date Given: Yes Hx Pneumococcal Vaccination/Date Given: Yes - Review of Systems Constitutional: No Fever, No Chills Eyes: No Symptoms Ears, Nose, & Throat: No Symptoms Respiratory: No Cough, No Dyspnea Cardiac: No Chest Pain, No Edema, No Syncope Abdominal/Gastrointestinal: No Abdominal Pain, No Nausea, No Vomiting, No Diarrhea Genitourinary Symptoms: No Dysuria Musculoskeletal: No Back Pain, No Neck Pain Skin: No Rash Neurological: No Dizziness, No Focal Weakness, No Sensory Changes Psychological: No Symptoms Endocrine: No Symptoms All Other Systems: Reviewed and Negative - Past Medical History Pertinent Past Medical History: Yes Neurological History: Other ENT History: Other Cardiac History: No Pertinent History Respiratory History: No Pertinent History Endocrine Medical History: Hypothyroidism Musculoskeletal History: No Pertinent History GI Medical History: No Pertinent History History: Other Psycho-Social History: Depression Female Reproductive Disorders: No Pertinent History Other Medical History: MS, hypothyroidism, L foot drop, decreased balance. - Past Surgical History Past Surgical History: Yes Neuro Surgical History: No Pertinent History Cardiac: No Pertinent History Respiratory: No Pertinent History Gastrointestinal: No Pertinent History Genitourinary: No Pertinent History Musculoskeletal: No Pertinent History Female Surgical History: Hysterectomy Other Surgical History: pt had thyroidectomy also had surgery on stomach where she gave her self shots for ms area had a nodular area that needed removed,MRSA on stomach I&D. - Social History Smoking Status: Current every day smoker How long have you smoked: years Exposure to second hand smoke: Yes Drug Use: none Patient Lives Alone: No - Nursing Vital Signs Nursing Vital Signs: Initial Vital Signs O2 Sat by Pulse Oximetry 95 04/14/21 18:50 Pain Scale Pain Intensity 0 - Physical Exam General Appearance: no apparent distress, alert Eye Exam: PERRL/EOMI, eyes nml inspection Ears, Nose, Throat Exam: normal ENT inspection, TMs normal, pharynx normal, moist mucous membranes Neck Exam: normal inspection, non-tender, supple, full range of motion Respiratory Exam: wheezing, No respiratory distress Cardiovascular Exam: regular rate/rhythm, normal heart sounds, normal peripheral pulses Gastrointestinal/Abdomen Exam: soft, normal bowel sounds, No tenderness, No mass Back Exam: normal inspection, normal range of motion, No CVA tenderness, No vertebral tenderness Extremity Exam: normal inspection, normal range of motion, pelvis stable Neurologic Exam: alert, oriented x 3, cooperative, normal mood/affect, nml cerebellar function, nml station & gait, sensation nml, No motor deficits Skin Exam: normal color, warm, dry, No rash Lymphatic Exam: No adenopathy - Course Nursing assessment & vital signs reviewed: Yes EKG Interpreted by Me: Sinus Rhythm, Left [place] Deviation, Non-specific ST Changes - Radiology Exams Pelvis X-ray Interpretation: Reviewed by me, No Fracture Ordered Tests: Active Orders 24 hr Category Date Time Status Title Abstractor STAT Care 04/14/21 19:03 Active EKG-ER Only STAT Care 04/14/21 19:01 Active IV Insertion STAT Care 04/14/21 19:01 Active Pulse Oximetry (ED) STAT Care 04/14/21 19:01 Active HIPS NANCY(2V) INCL PEL IF DONE Stat Exams 04/14/21 22:12 Taken CBC W DIFF Stat Lab 04/14/21 18:55 Completed CMP Stat Lab 04/14/21 18:55 Completed INFLUENZA A+B WOL[place]ANG Stat Lab 04/14/21 18:55 Completed Lactic Acid Stat Lab 04/14/21 19:25 Completed Lactic Acid Stat Lab 04/14/21 21:28 Completed NT PRO BNP Stat Lab 04/14/21 18:55 Completed T4 (Thyroxine) Stat Lab 04/14/21 18:55 Completed TROPONIN Q3H Lab 04/14/21 18:55 Completed TROPONIN Q3H Lab 04/14/21 22:10 Completed TROPONIN Q3H Lab 04/15/21 01:15 Ordered TROPONIN Q3H Lab 04/15/21 04:15 Ordered TROPONIN Q3H Lab 04/15/21 07:15 Ordered TSH [TSH, 3RD Generation] Stat Lab 04/14/21 18:55 Completed UA W/RFX UR CULTURE Stat Lab 04/14/21 19:01 Ordered Respiratory Therapy Assessment DAILY RT 04/14/21 19:29 Active Medication Summary Discontinued Medications Generic Name Dose Route Start Last Admin Trade Name Freq PRN Reason Stop Dose Admin Albuterol/Ipratropium 3 ml 04/14/21 19:01 04/14/21 19:20 Duoneb 0.5-3 Mg/3 Ml Neb IH 04/14/21 19:02 3 ml STAT ONE Administration Albuterol/Ipratropium Confirm 04/14/21 19:18 Duoneb 0.5-3 Mg/3 Ml Neb Administered 04/14/21 19:19 Dose 3 ml IH .STK-MED ONE Sodium Chloride 1,000 mls @ 999 mls/hr 04/14/21 19:01 04/14/21 21:32 Sodium Chloride 0.9% 1000 Ml IV 04/14/21 20:01 Infused .Q1H1M STA Infusion Sodium Chloride Confirm 04/14/21 19:11 Sodium Chloride 0.9% 1000 Ml Administered 04/14/21 19:12 Dose 1,000 mls @ ud .ROUTE .STK-MED ONE Sodium Chloride 1,000 mls @ 999 mls/hr 04/14/21 22:22 04/14/21 23:39 Sodium Chloride 0.9% 1000 Ml IV 04/14/21 23:22 Infused .Q1H1M STA Infusion Sodium Chloride Confirm 04/14/21 22:29 Sodium Chloride 0.9% 1000 Ml Administered 04/14/21 22:30 Dose 1,000 mls @ ud .ROUTE .STK-MED ONE Methylprednisolone Sodium Succinate 125 mg 04/14/21 19:01 04/14/21 19:18 Solu-Medrol 125 Mg IV 04/14/21 19:02 125 mg STAT ONE Administration Methylprednisolone Sodium Succinate Confirm 04/14/21 19:11 Solu-Medrol 125 Mg Administered 04/14/21 19:12 Dose 125 mg .ROUTE .STK-MED ONE Lab/Rad Data: Laboratory Result Diagrams 04/14/21 18:55 04/14/21 18:55 Laboratory Results 04/14/21 04/14/21 04/14/21 Range/Units 22:10 21:28 19:25 WBC (4.0-10.5) K/mm3 RBC (4.1-5.4) M/mm3 Hgb (12.0-16.0) gm/dl Hct (35-47) % MCV (78-100) fl MCH (26-32) pg MCHC (32-36) g/dl RDW (11.5-14.0) % Plt Count (150-450) K/mm3 MPV (7.5-11.0) fl Gran % (36.0-66.0) % Eos # (Auto) (0-0.5) Absolute Lymphs (auto) (1.0-4.6) Absolute Monos (auto) (0.0-1.3) Lymphocytes % (24.0-44.0) % Monocytes % (0.0-12.0) % Eosinophils % (0.00-5.0) % Basophils % (0.0-0.4) % Absolute Granulocytes (1.4-6.9) Basophils # (0-0.4) Sodium (137-145) mmol/L Potassium (3.5-5.1) mmol/L Chloride (98-107) mmol/L Carbon Dioxide (22-30) mmol/L Anion Gap (5-15) MEQ/L BUN (7-17) mg/dL Creatinine (0.52-1.04) mg/dL Estimated GFR ML/MIN Glucose (74-106) mg/dL Lactic Acid 3.6 H 2.5 H (0.4-2.0) Calcium (8.4-10.2) mg/dL Total Bilirubin (0.2-1.3) mg/dL AST (14-36) U/L ALT (0-35) U/L Alkaline Phosphatase (38-126) U/L Troponin I < 0.012 (0.000-0.034) ng/mL NT-Pro-B Natriuret Pep (0-900) pg/mL Serum Total Protein (6.3-8.2) g/dL Albumin (3.5-5.0) g/dL Thyroxine (T4) (5.53-10.96) ug/dL TSH 3rd Generation (0.47-4.68) mIU/L Influenza Type A Ag (NEGATIVE) Influenza Type B Ag (NEGATIVE) 04/14/21 04/14/21 04/14/21 Range/Units 18:55 18:55 18:55 WBC (4.0-10.5) K/mm3 RBC (4.1-5.4) M/mm3 Hgb (12.0-16.0) gm/dl Hct (35-47) % MCV (78-100) fl MCH (26-32) pg MCHC (32-36) g/dl RDW (11.5-14.0) % Plt Count (150-450) K/mm3 MPV (7.5-11.0) fl Gran % (36.0-66.0) % Eos # (Auto) (0-0.5) Absolute Lymphs (auto) (1.0-4.6) Absolute Monos (auto) (0.0-1.3) Lymphocytes % (24.0-44.0) % Monocytes % (0.0-12.0) % Eosinophils % (0.00-5.0) % Basophils % (0.0-0.4) % Absolute Granulocytes (1.4-6.9) Basophils # (0-0.4) Sodium (137-145) mmol/L Potassium (3.5-5.1) mmol/L Chloride (98-107) mmol/L Carbon Dioxide (22-30) mmol/L Anion Gap (5-15) MEQ/L BUN (7-17) mg/dL Creatinine (0.52-1.04) mg/dL Estimated GFR ML/MIN Glucose (74-106) mg/dL Lactic Acid (0.4-2.0) Calcium (8.4-10.2) mg/dL Total Bilirubin (0.2-1.3) mg/dL AST (14-36) U/L ALT (0-35) U/L Alkaline Phosphatase (38-126) U/L Troponin I < 0.012 (0.000-0.034) ng/mL NT-Pro-B Natriuret Pep (0-900) pg/mL Serum Total Protein (6.3-8.2) g/dL Albumin (3.5-5.0) g/dL Thyroxine (T4) 11.3 H (5.53-10.96) ug/dL TSH 3rd Generation < 0.015 L (0.47-4.68) mIU/L Influenza Type A Ag (NEGATIVE) Influenza Type B Ag (NEGATIVE) 04/14/21 04/14/21 04/14/21 Range/Units 18:55 18:55 18:55 WBC 8.9 (4.0-10.5) K/mm3 RBC 4.66 (4.1-5.4) M/mm3 Hgb 12.5 (12.0-16.0) gm/dl Hct 40.2 (35-47) % MCV 86.3 (78-100) fl MCH 26.8 (26-32) pg MCHC 31.1 L (32-36) g/dl RDW 15.8 H (11.5-14.0) % Plt Count 254 (150-450) K/mm3 MPV 11.4 H (7.5-11.0) fl Gran % 52.8 (36.0-66.0) % Eos # (Auto) 0.59 H (0-0.5) Absolute Lymphs (auto) 2.90 (1.0-4.6) Absolute Monos (auto) 0.66 (0.0-1.3) Lymphocytes % 32.8 (24.0-44.0) % Monocytes % 7.5 (0.0-12.0) % Eosinophils % 6.7 H (0.00-5.0) % Basophils % 0.2 (0.0-0.4) % Absolute Granulocytes 4.68 (1.4-6.9) Basophils # 0.02 (0-0.4) Sodium 142 (137-145) mmol/L Potassium 3.9 (3.5-5.1) mmol/L Chloride 102 (98-107) mmol/L Carbon Dioxide 24 (22-30) mmol/L Anion Gap 20.7 H (5-15) MEQ/L BUN 30 H (7-17) mg/dL Creatinine 1.05 H (0.52-1.04) mg/dL Estimated GFR 56.3 ML/MIN Glucose 89 (74-106) mg/dL Lactic Acid (0.4-2.0) Calcium 10.8 H (8.4-10.2) mg/dL Total Bilirubin 0.10 L (0.2-1.3) mg/dL AST 110 H (14-36) U/L ALT 45 H (0-35) U/L Alkaline Phosphatase 129 H (38-126) U/L Troponin I (0.000-0.034) ng/mL NT-Pro-B Natriuret Pep 15.8 (0-900) pg/mL Serum Total Protein 7.9 (6.3-8.2) g/dL Albumin 4.7 (3.5-5.0) g/dL Thyroxine (T4) (5.53-10.96) ug/dL TSH 3rd Generation (0.47-4.68) mIU/L Influenza Type A Ag NEGATIVE (NEGATIVE) Influenza Type B Ag NEGATIVE (NEGATIVE) - Progress Progress: improved, re-examined Progress Note: 04/15/21 00:09 pts symptoms resolved after obs and she feels well to go home now. she had some dehydration and some elevated LFTs and RFTs requiring workup with PMD and of the limitations of the workup performed. also advised that undetected pathology could still be evolving and requires further w/u; pt chooses DC f/u rather than further w/u in hosp or ER, and has the capacity to make that choice. Counseled pt/family regarding: lab results, diagnosis, need for follow-up, rad results - Departure Departure Disposition: Home Clinical Impression: COPD (chronic obstructive pulmonary disease) Condition: Good Critical Care Time: No Referrals: SARA ABAD [Primary Care Provider] - Instructions: Chronic Obstructive Pulmonary Disease, Chronic Obstructive Pulmonary Disease (COPD) (DC) Additional Instructions: followup this week with your Dr, we will order you an additional med for your breathing /COPD , but it requires checking your sugar with your Dr, as can throw it off; also your liver, kidney, and thyroid tests are elevated and need followup with your Dr. and will help the inflammation of your joints as well. return meantime if not improving or other concerns. Prescriptions: Methylprednisolone Packet [Medrol Dosepack] 4 mg PO UD #30 packet
[2021-04-14] MEDS ORDERED: Sodium Chloride 0.9% 1000 ML 1,000 ML ONE ×2 (19:11→22:29)
[2021-04-14] MEDS ORDERED: solu-MEDROL 125 MG ONE (19:11)
[2021-04-14 19:19] LABS: Absolute Neutrophil Ct (ANC) 4.68 (1.4-6.9); BASOPHIL % 0.2 % (0.0-0.4); Basophil (Absolute #) 0.02 (0-0.4); Eosinophil % 6.7 % (0.00-5.0); Eosinophil (Absolute #) 0.59 (0-0.5); Hematocrit 40.2 % (35-47); Hemoglobin 12.5 gm/dl (12.0-16.0); Lymphocytes % 32.8 % (24.0-44.0); Mean Cell Volume 86.3 fl (78-100); Mean Corpuscular Hemoglobin 26.8 pg (26-32); Mean Corpuscular Hgb Concent. 31.1 g/dl (32-36); Mean Platelet Volume 11.4 fl (7.5-11.0); Monocyte (Absolute #) 0.66 (0.0-1.3); Monocytes % 7.5 % (0.0-12.0); Neutrophil % 52.8 % (36.0-66.0); Platelet Count 254 K/mm3 (150-450); Red Blood Count 4.66 M/mm3 (4.1-5.4); Red Cell Distribution Width 15.8 % (11.5-14.0); White Blood Count 8.9 K/mm3 (4.0-10.5)
[2021-04-14 19:37] LABS: ALBUMIN 4.7 g/dL (3.5-5.0); ANION GAP 20.7 MEQ/L (5-15); BILIRUBIN,TOTAL 0.1 mg/dL (0.2-1.3); Calcium 10.8 mg/dL (8.4-10.2); Creatinine 1 1.05 mg/dL (0.52-1.04); EST GLOMERULAR FILTRATION RATE 56.3 ML/MIN; NT PRO BNP 15.8 pg/mL (0-900); Potassium 3.9 mmol/L (3.5-5.1); Total Protein 7.9 g/dL (6.3-8.2)
[2021-04-14 20:35] LABS: INFLUENZA A NEGATIVE (NEGATIVE); INFLUENZA B NEGATIVE (NEGATIVE)
[2021-04-15 00:28] VITALS: BP 123/77; PULSE 73; O2SAT 96
--- NOTE | 2021-04-15 08:53 | XRAY ---
Indication: Pain following fall. Comparison: December 31, 2020. AP pelvis and 2 view left and right hip demonstrates interval right total hip arthroplasty with intact bipolar prosthesis. Stable CT proven abdominal wall benign calcifications, osteopenia, and mild vascular calcifications. No other bony, articular, or soft tissue abnormalities.
== END 2021-04-15 00:44 | disposition home or self-care (01) ==
LOC: ED 18:49
DX: J44.9 Chronic obstructive pulmonary disease, unspecified (principal); E86.0 Dehydration; R53.1 Weakness; R94.5 Abnormal results of liver function studies; E03.9 Hypothyroidism, unspecified; Z79.899 Other long term (current) drug therapy; G35 Multiple sclerosis
CPT/HCPCS: 36000; 36415; 73521; 80053; 83605; 83880; 84436; 84443; 84484; 85025; 87400; 93005; 93041; 94640; 94760; 96360; 96374; 99285; J2930; A9270-GY

== ENCOUNTER 2022-03-05 11:03 | Observation (INO) | payer MEDICAID ==
[2022-03-05] MEDS ORDERED: Sodium Chloride 0.9% 1000 ML 1,000 ML IV SCH (11:30)
[2022-03-05 12:02] LABS: Absolute Neutrophil Ct (ANC) 5.08 x10^3/uL (1.4-6.9); Basophil (Absolute #) 0.07 x10^3/uL (0-0.4); Eosinophil % 6.1 % (0.00-5.0); Eosinophil (Absolute #) 0.63 x10^3/uL (0-0.5); Hematocrit 40.6 % (35-47); Hemoglobin 12.8 g/dL (12.0-16.0); Lymphocyte (Absolute #) 3.98 x10^3/uL (1.0-4.6); Lymphocytes % 38.3 % (24.0-44.0); Mean Cell Volume 87.3 fL (78-100); Mean Corpuscular Hemoglobin 27.5 pg (26-32); Mean Corpuscular Hgb Concent. 31.5 g/dL (32-36); Mean Platelet Volume 10.4 fL (7.5-11.0); Monocyte (Absolute #) 0.56 x10^3/uL (0.0-1.3); Monocytes % 5.4 % (0.0-12.0); Neutrophil % 48.9 % (36.0-66.0); Platelet Count 317 x10^3/uL (150-450); Red Blood Count 4.65 x10^6/uL (4.1-5.4); Red Cell Distribution Width 15.4 % (11.5-14.0); White Blood Count 10.4 x10^3/uL (4.0-10.5)
[2022-03-05 12:20] LABS: D-DIMER QUANTITATIVE 0.25 ng/mL (0.0-0.50); INR 1.09 (0.8-3.0); PROTIME 11.5 SECONDS (9.4-12.5); PTT 26.2 SECONDS (25.1-36.5)
[2022-03-05 12:36] LABS: ALBUMIN 4.1 g/dL (3.5-5.0); ANION GAP 16.5 MEQ/L (5-15); BILIRUBIN,TOTAL 0.4 mg/dL (0.2-1.3); Calcium 11.2 mg/dL (8.4-10.2); Creatinine 1 1.75 mg/dL (0.52-1.04); EST GLOMERULAR FILTRATION RATE 31.1 ML/MIN; MAGNESIUM 1.9 mg/dL (1.6-2.3); Potassium 4.7 mmol/L (3.5-5.1); Total Protein 7.1 g/dL (6.3-8.2)
--- NOTE | 2022-03-05 12:40 | XRAY ---
Indication: Dizziness. Multiple sclerosis. Multiple contiguous images obtained through the head without contrast. Comparison: None Age-appropriate global atrophy. There are moderate bilateral periventricular patchy hypoattenuations either degenerative micro-ischemia or clinically reported multiple sclerosis. No acute intracranial hemorrhage, abnormal extra-axial fluid collection, or mass effect. Fourth ventricle is midline without hydrocephalus. Bony calvarium intact. Visualized paranasal sinuses and mastoid air cells are clear. Impression: Atrophy within normal limits rephrased age. Moderate bilateral periventricular patchy hypoattenuations either degenerative micro-ischemia versus clinically reported multiple sclerosis. Outside comparison studies recommended if available. If not, MRI may yield further information.
--- NOTE | 2022-03-05 12:44 | XRAY ---
Indication: Dizziness. Comparison: December 04, 2020. Portable chest again demonstrates normal heart and lungs. Bony thorax intact again with osteopenia, old right clavicle fracture, right humeral enchondroma, and base of neck surgical clips. No new/acute findings.
[2022-03-05] MEDS ORDERED: Sodium Chloride 0.9% 1000 ML 1,000 ML IV STA (12:49)
[2022-03-05] MEDS ORDERED: Sodium Chloride 0.9% 1000 ML 1,000 ML ONE (12:49)
[2022-03-05 13:11] LABS: Bacteria RARE /HPF (NEGATIVE); Epithelial Cells RARE /HPF (FEW); Hyaline Casts 26-50 /LPF (0-2); Mucus SLIGHT /HPF (NEGATIVE); RBC 0-2 /HPF (0-2)
--- NOTE | 2022-03-05 13:14 | ERPHSYRPT ---
- History of Present Illness Time Seen by Provider: 03/05/22 11:35 Source: patient Exam Limitations: no limitations Patient Subjective Stated Complaint: Pt states "Yesterday I got really lightheaded and dizzy and my blood pressure went way down." Triage Nursing Assessment: Pt presented alert and oriented 3, skin pwd. pt ambulates with an upright steady gait, able to speak in clear full sentences pt in no apparent respiratory distress. Pt has intermittant cough. Physician History: Patient is a 66-year-old white female who was sent to the ER by Dr. Linder after she became very lightheaded and dizzy yesterday and noted that her blood pressure was low. She continued to have problems this morning. Her blood pressure at home was low but she does not have the exact readings. On arrival she was 97/65. Timing/Duration: yesterday Severity: severe Associated Symptoms: syncope (Near syncope) Allergies/Adverse Reactions: amoxicillin trihydrate [From Augmentin] Allergy (Severe, Verified 11/03/20 16:57) cefaclor [From Ceclor] Allergy (Severe, Verified 11/03/20 16:57) syncope levofloxacin [From Levaquin] Allergy (Severe, Verified 11/03/20 16:57) syncope potassium clavulanate [From Augmentin] Allergy (Severe, Verified 11/03/20 16:57) Cephalosporins Allergy (Mild, Verified 11/03/20 16:57) doxycycline Allergy (Mild, Verified 11/03/20 16:57) sertraline HCl [From Zoloft] Allergy (Mild, Verified 11/03/20 16:57) clindamycin Allergy (Verified 11/03/20 16:57) sulfamethoxazole [From Bactrim] Allergy (Verified 11/03/20 16:57) trimethoprim [From Bactrim] Allergy (Verified 11/03/20 16:57) Home Medications: Baclofen 10 mg [Lioresal 10 mg] 10 mg PO DAILY 02/28/13 [History] Cetirizine HCl [Zyrtec] 10 mg PO DAILY 02/28/13 [History] Docusate Sodium [Doc-Q-Lace] 100 mg PO HS 02/28/13 [History] Estrogens, Conjugated [Premarin] 0.3 mg PO DAILY 02/28/13 [History] Fluoxetine HCl [Prozac] 80 mg PO DAILY 02/28/13 [History] Gabapentin 800 mg PO BID 02/28/13 [History] Magnesium Oxide 400 mg [Mag-Ox 400] 800 mg PO DAILY 02/28/13 [History] Oxybutynin Chloride 5 mg [Ditropan 5 MG] 5 mg PO BID 02/28/13 [History] Simvastatin 20Mg [Zocor 20Mg] 20 mg PO HS 02/28/13 [History] Budesonide/Formoterol Fumarate [Symbicort 160-4.5 Mcg Inhaler] 2 puffs IH BID 05/26/14 [History] Liothyronine Sodium 5 mcg PO DAILY 05/26/14 [History] Metformin HCl 500 mg [Glucophage 500 MG] 500 mg PO BIDWMEALS 05/26/14 [History] Tamsulosin HCl 0.4 mg [Flomax 0.4 MG] 0.8 mg PO HS 06/08/15 [History] Albuterol Sulfate [Albuterol Sulfate Hfa] 2 puffs IH Q4HPRN PRN 03/06/19 [History] Alcaftadine [Lastacaft] 1 drop OP DAILY PRN PRN 03/06/19 [History] Fluticasone Propionate [Flonase NASAL] 2 spray IH DAILY 03/06/19 [History] Hydrocodone/Acetaminophen [Hydrocodone-Acetamin 10-325 mg] 1 each PO Q6HPRN PRN 03/06/19 [History] Interferon Beta-1A/Albumin [Rebif Rebidose 22 Mcg/0.5 ml] 0.5 ml SQ UD 03/06/19 [History] Ipratropium [place] Hfa [Atrovent HFA MDI] 2 puff IH Q4HPRN PRN 03/06/19 [History] Levothyroxine Sodium 150 mcg PO DAILY 03/06/19 [History] Meloxicam 7.5 mg [Mobic 7.5 MG] 7.5 mg PO BID 03/06/19 [History] Montelukast Sodium 10 mg PO DAILY 03/06/19 [History] Potassium Chloride [K-Dur] 20 meq PO DAILY 03/06/19 [History] predniSONE [Prednisone] 20 mg PO DAILY 03/06/19 [History] Hx Tetanus, Diphtheria Vaccination/Date Given: Yes Hx Influenza Vaccination/Date Given: Yes Hx Pneumococcal Vaccination/Date Given: Yes Immunizations Up to Date: Yes Travel Risk - International Travel Have you traveled outside of the country in past 3 weeks: No - Coronavirus Screening Are you exhibiting any of the following symptoms?: No Close contact with a COVID-19 positive Pt in past 14-21 Days: No - Vaccine Status Have you recieved a Covid-19 vaccination: No - Review of Systems Constitutional: No Fever, No Chills Eyes: No Symptoms Ears, Nose, & Throat: No Symptoms Respiratory: No Cough, No Dyspnea Cardiac: No Chest Pain, No Edema, No Syncope Abdominal/Gastrointestinal: No Abdominal Pain, No Nausea, No Vomiting, No Diarrhea Genitourinary Symptoms: No Dysuria Musculoskeletal: No Back Pain, No Neck Pain Skin: No Rash Neurological: Dizziness, No Focal Weakness, No Sensory Changes Psychological: No Symptoms Endocrine: No Symptoms All Other Systems: Reviewed and Negative - Past Medical History Pertinent Past Medical History: Yes Neurological History: Other ENT History: Other Cardiac History: Arrhythmia Respiratory History: Asthma, COPD Endocrine Medical History: Diabetes Type II, Other Musculoskeletal History: Osteoarthritis, Osteoporosis GI Medical History: No Pertinent History History: Other Psycho-Social History: Depression Female Reproductive Disorders: No Pertinent History Other Medical History: MULTIPLE SCLEROSIS, NOTES LIVER ENZYMES ARE OFF, SMOKER, TACHYCARDIA, - Past Surgical History Past Surgical History: Yes Neuro Surgical History: No Pertinent History Cardiac: No Pertinent History Respiratory: No Pertinent History Gastrointestinal: No Pertinent History Genitourinary: No Pertinent History Musculoskeletal: No Pertinent History Female Surgical History: Hysterectomy Other Surgical History: pt had thyroidectomy also had surgery on stomach where she gave her self shots for ms area had a nodular area that needed removed,MRSA on stomach I&D. - Social History Smoking Status: Current every day smoker How long have you smoked: years Exposure to second hand smoke: Yes Drug Use: none Patient Lives Alone: No - Nursing Vital Signs Nursing Vital Signs: Initial Vital Signs Temperature 97.1 F 03/05/22 11:24 Pulse Rate 74 03/05/22 11:24 Respiratory Rate 20 03/05/22 11:24 Blood Pressure 97/65 03/05/22 11:24 O2 Sat by Pulse Oximetry 94 L 03/05/22 11:24 Pain Scale Pain Intensity 0 - Physical Exam General Appearance: mild distress, alert Eye Exam: PERRL/EOMI, eyes nml inspection Ears, Nose, Throat Exam: normal ENT inspection, TMs normal, pharynx normal, moist mucous membranes Neck Exam: normal inspection, non-tender, supple, full range of motion Respiratory Exam: normal breath sounds, lungs clear, No respiratory distress Cardiovascular Exam: regular rate/rhythm, normal heart sounds, normal peripheral pulses Gastrointestinal/Abdomen Exam: soft, normal bowel sounds, No tenderness, No mass Back Exam: normal inspection, normal range of motion, No CVA tenderness, No oswaldo tebral tenderness Extremity Exam: normal inspection, normal range of motion, pelvis stable Neurologic Exam: alert, oriented x 3, cooperative, normal mood/affect, nml cerebellar function, nml station & gait, sensation nml, No motor deficits Skin Exam: normal color, warm, dry, No rash Lymphatic Exam: No adenopathy SpO2: 95 - Course Nursing assessment & vital signs reviewed: Yes EKG Interpreted by Me: RATE (75), Sinus Rhythm, NORMAL AXIS, Non-specific ST Changes - Radiology Exams Chest X-ray Interpretation: Reviewed by me - CT Exams Head CT Interpretation: Other (No acute findings noted) Ordered Tests: Active Orders 24 hr Category Date Time Status EKG-ER Only STAT Care 03/05/22 11:29 Active IV Insertion STAT Care 03/05/22 11:29 Active Orthostatic Vital Signs STAT Care 03/05/22 11:31 Active CHEST 1 VIEW (PORTABLE) Stat Exams 03/05/22 12:36 Completed HEAD WITHOUT CONTRAST [CT] Stat Exams 03/05/22 12:24 Completed AMYLASE Stat Lab 03/05/22 11:55 Completed CBC W DIFF Stat Lab 03/05/22 11:55 Completed CMP Stat Lab 03/05/22 11:55 Completed CULTURE,URINE Stat Lab 03/05/22 11:57 Received D-DIMER QUANTITATIVE Stat Lab 03/05/22 11:55 Completed LIPASE Stat Lab 03/05/22 11:55 Completed Lactic Acid Stat Lab 03/05/22 12:05 Completed Lactic Acid Stat Lab 03/05/22 14:10 Received MAGNESIUM Stat Lab 03/05/22 11:55 Completed NT PRO BNP Stat Lab 03/05/22 11:55 Completed PROTIME WITH INR Stat Lab 03/05/22 11:55 Completed PTT Stat Lab 03/05/22 11:55 Completed TROPONIN Q3H Lab 03/05/22 11:55 Completed TROPONIN Q3H Lab 03/05/22 13:58 Completed TROPONIN Q3H Lab 03/05/22 17:30 Ordered TROPONIN Q3H Lab 03/05/22 20:30 Ordered TROPONIN Q3H Lab 03/05/22 23:30 Ordered UA W/RFX CULTURE Stat Lab 03/05/22 11:57 Completed Medication Summary Generic Name Dose Route Start Last Admin Trade Name Freq PRN Reason Stop Dose Admin Sodium Chloride 1,000 mls @ 50 mls/hr 03/05/22 11:30 03/05/22 12:57 Sodium Chloride 0.9% 1000 Ml IV 04/04/22 11:29 Infused .Q20H [facility] Infusion Discontinued Medications Generic Name Dose Route Start Last Admin Trade Name Freq PRN Reason Stop Dose Admin Sodium Chloride 1,000 mls @ 999 mls/hr 03/05/22 12:49 03/05/22 13:57 Sodium Chloride 0.9% 1000 Ml IV 03/05/22 13:49 Infused .Q1H1M STA Infusion Lab/Rad Data: Laboratory Result Diagrams 03/05/22 11:55 03/05/22 11:55 Laboratory Results 03/05/22 03/05/22 03/05/22 Range/Units 13:58 12:05 11:57 WBC (4.0-10.5) x10^3/uL RBC (4.1-5.4) x10^6/uL Hgb (12.0-16.0) g/dL Hct (35-47) % MCV (78-100) fL MCH (26-32) pg MCHC (32-36) g/dL RDW (11.5-14.0) % Plt Count (150-450) x10^3/uL MPV (7.5-11.0) fL Gran % (36.0-66.0) % Immature Gran % (Auto) (0.00-0.4) % Nucleat RBC Rel Count (0.00-0.1) % Eos # (Auto) (0-0.5) x10^3/uL Immature Gran # (Auto) (0.00-0.03) x10^3u/L Absolute Lymphs (auto) (1.0-4.6) x10^3/uL Absolute Monos (auto) (0.0-1.3) x10^3/uL Absolute Nucleated RBC (0.00-0.01) x10^3u/L Lymphocytes % (24.0-44.0) % Monocytes % (0.0-12.0) % Eosinophils % (0.00-5.0) % Basophils % (0.0-0.4) % Absolute Granulocytes (1.4-6.9) x10^3/uL Basophils # (0-0.4) x10^3/uL PT (9.4-12.5) SECONDS INR (0.8-3.0) APTT (25.1-36.5) SECONDS D-Dimer (0.0-0.50) ng/mL Sodium (137-145) mmol/L Potassium (3.5-5.1) mmol/L Chloride (98-107) mmol/L Carbon Dioxide (22-30) mmol/L Anion Gap (5-15) MEQ/L BUN (7-17) mg/dL Creatinine (0.52-1.04) mg/dL Estimated GFR ML/MIN Glucose (74-106) mg/dL Lactic Acid 1.9 (0.4-2.0) Calcium (8.4-10.2) mg/dL Magnesium (1.6-2.3) mg/dL Total Bilirubin (0.2-1.3) mg/dL AST (14-36) U/L ALT (0-35) U/L Alkaline Phosphatase (38-126) U/L Troponin I < 0.012 (0.000-0.034) ng/mL NT-Pro-B Natriuret Pep (0-900) pg/mL Serum Total Protein (6.3-8.2) g/dL Albumin (3.5-5.0) g/dL Amylase (30-110) U/L Lipase (23-300) U/L Urinalys Dipstick Clnc MAIN LAB Urine Color YELLOW (YELLOW) Urine Appearance SLIGHTLY CLOUDY (CLEAR) Urine pH 6.0 (5-6) Ur Specific [place] 1.020 (1.005-1.025) POC Urine Protein Conf NEGATIVE (Negative) Urine Ketones NEGATIVE (NEGATIVE) Urine Nitrite NEGATIVE (NEGATIVE) Urine Bilirubin NEGATIVE (NEGATIVE) Urine Urobilinogen 0.2 (0-1) mg/dL Urine Leukocytes TRACE (NEGATIVE) Urine WBC (Auto) 11-15 (0-5) /HPF Urine RBC (Auto) 0-2 (0-2) /HPF U Hyaline Cast (Auto) 26-50 (0-2) /LPF U Epithel Cells (Auto) RARE (FEW) /HPF Urine Bacteria (Auto) RARE (NEGATIVE) /HPF Urine RBC NEGATIVE (0-5) Wili/ul Urine Mucus (Auto) SLIGHT (NEGATIVE) /HPF Ur Culture Indicated? YES Urine Glucose NEGATIVE (NEGATIVE) mg/dL 03/05/22 03/05/22 03/05/22 Range/Units 11:55 11:55 11:55 WBC (4.0-10.5) x10^3/uL RBC (4.1-5.4) x10^6/uL Hgb (12.0-16.0) g/dL Hct (35-47) % MCV (78-100) fL MCH (26-32) pg MCHC (32-36) g/dL RDW (11.5-14.0) % Plt Count (150-450) x10^3/uL MPV (7.5-11.0) fL Gran % (36.0-66.0) % Immature Gran % (Auto) (0.00-0.4) % Nucleat RBC Rel Count (0.00-0.1) % Eos # (Auto) (0-0.5) x10^3/uL Immature Gran # (Auto) (0.00-0.03) x10^3u/L Absolute Lymphs (auto) (1.0-4.6) x10^3/uL Absolute Monos (auto) (0.0-1.3) x10^3/uL Absolute Nucleated RBC (0.00-0.01) x10^3u/L Lymphocytes % (24.0-44.0) % Monocytes % (0.0-12.0) % Eosinophils % (0.00-5.0) % Basophils % (0.0-0.4) % Absolute Granulocytes (1.4-6.9) x10^3/uL Basophils # (0-0.4) x10^3/uL PT 11.5 (9.4-12.5) SECONDS INR 1.09 (0.8-3.0) APTT 26.2 (25.1-36.5) SECONDS D-Dimer 0.25 (0.0-0.50) ng/mL Sodium 140 (137-145) mmol/L Potassium 4.7 (3.5-5.1) mmol/L Chloride 103 (98-107) mmol/L Carbon Dioxide 25 (22-30) mmol/L Anion Gap 16.5 H (5-15) MEQ/L BUN 32 H (7-17) mg/dL Creatinine 1.75 H (0.52-1.04) mg/dL Estimated GFR 31.1 ML/MIN Glucose 121 H (74-106) mg/dL Lactic Acid (0.4-2.0) Calcium 11.2 H (8.4-10.2) mg/dL Magnesium 1.9 (1.6-2.3) mg/dL Total Bilirubin 0.40 (0.2-1.3) mg/dL AST 46 H (14-36) U/L ALT 22 (0-35) U/L Alkaline Phosphatase 108 (38-126) U/L Troponin I < 0.012 (0.000-0.034) ng/mL NT-Pro-B Natriuret Pep 458 (0-900) pg/mL Serum Total Protein 7.1 (6.3-8.2) g/dL Albumin 4.1 (3.5-5.0) g/dL Amylase 76 (30-110) U/L Lipase 72 (23-300) U/L Urinalys Dipstick Clnc Urine Color (YELLOW) Urine Appearance (CLEAR) Urine pH (5-6) Ur Specific [place] (1.005-1.025) POC Urine Protein Conf (Negative) Urine Ketones (NEGATIVE) Urine Nitrite (NEGATIVE) Urine Bilirubin (NEGATIVE) Urine Urobilinogen (0-1) mg/dL Urine Leukocytes (NEGATIVE) Urine WBC (Auto) (0-5) /HPF Urine RBC (Auto) (0-2) /HPF U Hyaline Cast (Auto) (0-2) /LPF U Epithel Cells (Auto) (FEW) /HPF Urine Bacteria (Auto) (NEGATIVE) /HPF Urine RBC (0-5) Wili/ul Urine Mucus (Auto) (NEGATIVE) /HPF Ur Culture Indicated? Urine Glucose (NEGATIVE) mg/dL 03/05/22 Range/Units 11:55 WBC 10.4 (4.0-10.5) x10^3/uL RBC 4.65 (4.1-5.4) x10^6/uL Hgb 12.8 (12.0-16.0) g/dL Hct 40.6 (35-47) % MCV 87.3 (78-100) fL MCH 27.5 (26-32) pg MCHC 31.5 L (32-36) g/dL RDW 15.4 H (11.5-14.0) % Plt Count 317 (150-450) x10^3/uL MPV 10.4 (7.5-11.0) fL Gran % 48.9 (36.0-66.0) % Immature Gran % (Auto) 0.6 H (0.00-0.4) % Nucleat RBC Rel Count 0.0 (0.00-0.1) % Eos # (Auto) 0.63 H (0-0.5) x10^3/uL Immature Gran # (Auto) 0.06 H (0.00-0.03) x10^3u/L Absolute Lymphs (auto) 3.98 (1.0-4.6) x10^3/uL Absolute Monos (auto) 0.56 (0.0-1.3) x10^3/uL Absolute Nucleated RBC 0.00 (0.00-0.01) x10^3u/L Lymphocytes % 38.3 (24.0-44.0) % Monocytes % 5.4 (0.0-12.0) % Eosinophils % 6.1 H (0.00-5.0) % Basophils % 0.7 (0.0-0.4) % Absolute Granulocytes 5.08 (1.4-6.9) x10^3/uL Basophils # 0.07 (0-0.4) x10^3/uL PT (9.4-12.5) SECONDS INR (0.8-3.0) APTT (25.1-36.5) SECONDS D-Dimer (0.0-0.50) ng/mL Sodium (137-145) mmol/L Potassium (3.5-5.1) mmol/L Chloride (98-107) mmol/L Carbon Dioxide (22-30) mmol/L Anion Gap (5-15) MEQ/L BUN (7-17) mg/dL Creatinine (0.52-1.04) mg/dL Estimated GFR ML/MIN Glucose (74-106) mg/dL Lactic Acid (0.4-2.0) Calcium (8.4-10.2) mg/dL Magnesium (1.6-2.3) mg/dL Total Bilirubin (0.2-1.3) mg/dL AST (14-36) U/L ALT (0-35) U/L Alkaline Phosphatase (38-126) U/L Troponin I (0.000-0.034) ng/mL NT-Pro-B Natriuret Pep (0-900) pg/mL Serum Total Protein (6.3-8.2) g/dL Albumin (3.5-5.0) g/dL Amylase (30-110) U/L Lipase (23-300) U/L Urinalys Dipstick Clnc Urine Color (YELLOW) Urine Appearance (CLEAR) Urine pH (5-6) Ur Specific [place] (1.005-1.025) POC Urine Protein Conf (Negative) Urine Ketones (NEGATIVE) Urine Nitrite (NEGATIVE) Urine Bilirubin (NEGATIVE) Urine Urobilinogen (0-1) mg/dL Urine Leukocytes (NEGATIVE) Urine WBC (Auto) (0-5) /HPF Urine RBC (Auto) (0-2) /HPF U Hyaline Cast (Auto) (0-2) /LPF U Epithel Cells (Auto) (FEW) /HPF Urine Bacteria (Auto) (NEGATIVE) /HPF Urine RBC (0-5) Wili/ul Urine Mucus (Auto) (NEGATIVE) /HPF Ur Culture Indicated? Urine Glucose (NEGATIVE) mg/dL - Progress Progress: improved Discussed with : Vazquez Will see patient in: hospital (observation) - Departure Departure Disposition: Observation Clinical Impression: Orthostatic hypotension, Hypercalcemia Condition: Stable Critical Care Time: No Referrals: SARA MONTELONGO [Primary Care Provider] - Follow up/PCP as directed Instructions: Orthostatic Hypotension (DC)
[2022-03-05 13:16] LABS: Appearance SLIGHTLY CLOUDY (CLEAR); Bilirubin NEGATIVE (NEGATIVE); Glucose NEGATIVE (NEGATIVE); Ketones NEGATIVE (NEGATIVE); Nitrite NEGATIVE (NEGATIVE); Protein,Urine Dip NEGATIVE (Negative); RBC NEGATIVE Ery/ul (0-5); Urobilinogen 0.2 mg/dL (0-1)
[2022-03-05 13:17] LABS: Dipstick done @ ? MAIN LAB; Urine Cultured Indicated? YES
[2022-03-05 15:54] LABS: INFLUENZA A NEGATIVE (NEGATIVE); INFLUENZA B NEGATIVE (NEGATIVE); RESPIRATORY SYNCTIAL VIRUS NEGATIVE (Negative); SARS-CoV-2 Xpert Express NEGATIVE (NEGATIVE)
[2022-03-05] MEDS ORDERED: Macrobid 100MG Capsule PO SCH (17:00)
[2022-03-05] MEDS ORDERED: VENTOLIN COMMON CANISTER IH PRN (17:52)
[2022-03-05] MEDS: Advair Hfa 115/21 Common canister IH SCH (18:50)
[2022-03-05] MEDS: Sodium Chloride 0.9% 1000 ML 1,000 ML IV SCH (19:02)
[2022-03-05] MEDS: NORCO 7.5/325 MG TAB PO PRN (21:05)
[2022-03-05] MEDS: Neurontin PO SCH (21:07)
[2022-03-05] MEDS ORDERED: Docusate Sodium 100 MG PO SCH (22:00)
[2022-03-06] MEDS: Sodium Chloride 0.9% 1000 ML 1,000 ML IV SCH (01:43)
[2022-03-06 05:43] LABS: Absolute Neutrophil Ct (ANC) 1.93 x10^3/uL (1.4-6.9); Basophil (Absolute #) 0.04 x10^3/uL (0-0.4); Eosinophil % 8.1 % (0.00-5.0); Hemoglobin 10.5 g/dL (12.0-16.0); Lymphocyte (Absolute #) 2.22 x10^3/uL (1.0-4.6); Mean Cell Volume 89.5 fL (78-100); Mean Corpuscular Hemoglobin 27.6 pg (26-32); Mean Corpuscular Hgb Concent. 30.9 g/dL (32-36); Mean Platelet Volume 10.7 fL (7.5-11.0); Monocyte (Absolute #) 0.32 x10^3/uL (0.0-1.3); Monocytes % 6.5 % (0.0-12.0); Neutrophil % 39.2 % (36.0-66.0); Platelet Count 222 x10^3/uL (150-450); Red Cell Distribution Width 15.6 % (11.5-14.0); White Blood Count 4.9 x10^3/uL (4.0-10.5)
[2022-03-06 06:13] LABS: ALKALINE PHOSPHATASE 112 U/L (38-126); ANION GAP 12.3 MEQ/L (5-15); BLOOD UREA NITROGEN 20 mg/dL (7-17); CHLORIDE 110 mmol/L (98-107); Calcium 9.2 mg/dL (8.4-10.2); Carbon Dioxide 21 mmol/L (22-30); Creatinine 1 0.71 mg/dL (0.52-1.04); EST GLOMERULAR FILTRATION RATE > 60.0 ML/MIN; Glucose 109 mg/dL (74-106); Potassium 4.2 mmol/L (3.5-5.1); SGOT/AST 32 U/L (14-36); SGPT/ALT 15 U/L (0-35); SODIUM 140 mmol/L (137-145); Total Protein 5.6 g/dL (6.3-8.2)
[2022-03-06] MEDS: Advair Hfa 115/21 Common canister IH SCH (07:22)
[2022-03-06 07:31] VITALS: O2SAT 96
[2022-03-06 07:43] VITALS: BP 125/71; PULSE 60
--- NOTE | 2022-03-06 08:22 | PCM.SSS ---
History of Present Illness - Chief Complaint Chief Complaint: orthostatic hypotension History of Present Illness: is a 66 year old female patient of Dr Linder who presented to the ER yesterday with dizziness and lightheadedness, bp was noted to be low. she takes lasix but no other meds for hypertension. She reports eating and drinking normally with no vomiting or diarrhea prior to this incident. her home meds list is 3 pages long. - Review of Systems Constitutional: No Fever, No Chills Respiratory: No Cough, No Short Of Breath Cardiac: No Chest Pain, No Edema, No Syncope Abdominal/Gastrointestinal: No Abdominal Pain, No Nausea, No Vomiting, No Diarrhea Skin: No Rash All Other Systems: Reviewed and Negative Medications & Allergies Home Medications: Home Medication List Baclofen 10 mg [Lioresal 10 mg] 10 mg PO DAILY 02/28/13 [History Confirmed 03/05/22] Cetirizine HCl [Zyrtec] 10 mg PO DAILY 02/28/13 [History Confirmed 03/05/22] Docusate Sodium [Doc-Q-Lace] 100 mg PO HS 02/28/13 [History Confirmed 03/05/22] Estrogens, Conjugated [Premarin] 0.3 mg PO DAILY 02/28/13 [History Confirmed 03/05/22] Fluoxetine HCl [Prozac] 80 mg PO DAILY 02/28/13 [History Confirmed 03/05/22] Gabapentin 800 mg PO BID 02/28/13 [History Confirmed 03/05/22] Magnesium Oxide 400 mg [Mag-Ox 400] 800 mg PO DAILY 02/28/13 [History Confirmed 03/05/22] Oxybutynin Chloride 5 mg [Ditropan 5 MG] 5 mg PO BID 02/28/13 [History Confirmed 03/05/22] Simvastatin 20Mg [Zocor 20Mg] 20 mg PO HS 02/28/13 [History Confirmed 03/05/22] Budesonide/Formoterol Fumarate [Symbicort 160-4.5 Mcg Inhaler] 2 puffs IH BID 05/26/14 [History Confirmed 03/05/22] Liothyronine Sodium 5 mcg PO DAILY 05/26/14 [History Confirmed 03/05/22] Metformin HCl 500 mg [Glucophage 500 MG] 500 mg PO BIDWMEALS 05/26/14 [History Confirmed 03/05/22] Tamsulosin HCl 0.4 mg [Flomax 0.4 MG] 0.8 mg PO HS 06/08/15 [History Confirmed 03/05/22] Albuterol Sulfate [Albuterol Sulfate Hfa] 2 puffs IH Q4HPRN PRN 03/06/19 [History Confirmed 03/05/22] Fluticasone Propionate [Flonase NASAL] 2 spray IH DAILY 03/06/19 [History Confirmed 03/05/22] Interferon Beta-1A/Albumin [Rebif Rebidose 22 Mcg/0.5 ml] 0.5 ml SQ UD 03/06/19 [History Confirmed 03/05/22] Ipratropium [place] Hfa [Atrovent HFA MDI] 2 puff IH Q4HPRN PRN 03/06/19 [History Confirmed 03/05/22] Levothyroxine Sodium 112 mcg PO DAILY 03/06/19 [History Confirmed 03/05/22] Montelukast Sodium 10 mg PO DAILY 03/06/19 [History Confirmed 03/05/22] predniSONE [Prednisone] 20 mg PO DAILY 03/06/19 [History Confirmed 03/05/22] Alendronate Sodium 70 mg [Fosamax 70 MG] 1 each PO WEEKLY 03/05/22 [History Confirmed 03/05/22] Ergocalciferol (Vitamin D2) [Vitamin D2] 1 each PO WEEKLY 03/05/22 [History Confirmed 03/05/22] Gabapentin [Neurontin ] 300 mg PO LUNCH 03/05/22 [History Confirmed 03/05/22] Hydrocodone/Acetaminophen [Hydrocodone-Acetamin 7.5-325] 1 each PO Q4-6HPRN PRN 03/05/22 [History Confirmed 03/05/22] Allergies/Adverse Reactions: Allergies Allergy/AdvReac Type Severity Reaction Status Date / Time amoxicillin trihydrate Allergy Severe Verified 11/03/20 16:57 [From Augmentin] cefaclor [From Ceclor] Allergy Severe syncope Verified 11/03/20 16:57 levofloxacin [From Levaquin] Allergy Severe syncope Verified 11/03/20 16:57 potassium clavulanate Allergy Severe Verified 11/03/20 16:57 [From Augmentin] Cephalosporins Allergy Mild Verified 11/03/20 16:57 doxycycline Allergy Mild Verified 11/03/20 16:57 sertraline HCl [From Zoloft] Allergy Mild Verified 11/03/20 16:57 clindamycin Allergy Verified 11/03/20 16:57 sulfamethoxazole Allergy Verified 11/03/20 16:57 [From Bactrim] trimethoprim [From Bactrim] Allergy Verified 11/03/20 16:57 - Past Medical History Past Medical History: Yes Neurological History: Other ENT History: Other Cardiac History: Arrhythmia CARDIAC HISTORY: Other Respiratory History: Asthma, COPD Endocrine Medical History: Diabetes Type II, Other Musculoskelatal History: Osteoarthritis, Osteoporosis GI Medical History: No Pertinent History History: Other Pyscho-Social History: Depression Reproductive Disorders: No Pertinent History Comment: MULTIPLE SCLEROSIS, SMOKER, TACHYCARDIA, - Female History Are you now?: No - Past Surgical History Past Surgical History: Yes Neuro Surgical History: No Pertinent History Cardiac History: No Pertinent History Respiratory Surgery: No Pertinent History GI Surgical History: No Pertinent History Genitourinary Surgical Hx: No Pertinent History Musculskeletal Surgical Hx: No Pertinent History Female Surgical History: Hysterectomy Other Surgical History: pt had thyroidectomy also had surgery on stomach where she gave her self shots for ms area had a nodular area that needed removed,MRSA on stomach I&D. - Social History Smoking Status: Current every day smoker How long have you smoked: years Exposure to second hand smoke: Yes Alcohol: None Drug Use: none - Physical Exam Vital Signs: Vital Signs - 24 hr Temp Pulse Resp BP Pulse Ox 03/06/22 07:42 95.1 F 60 16 125/71 96 03/06/22 07:31 76 18 96 03/06/22 04:00 98.5 F 64 18 101/58 98 03/05/22 23:24 98.2 F 78 20 96/58 96 03/05/22 19:47 86 93/54 03/05/22 19:45 97.8 F 71 18 99/61 97 03/05/22 19:36 72 20 95 03/05/22 17:32 72 16 95 03/05/22 17:15 97.5 F 61 107/54 99 03/05/22 17:04 97.6 F 65 15 106/72 97 03/05/22 15:38 65 15 106/72 97 03/05/22 15:08 95 03/05/22 15:00 68 24 108/71 91 L 03/05/22 14:30 72 18 108/65 98 03/05/22 13:11 97.6 F 62 20 117/77 98 03/05/22 12:06 73 16 81/67 95 03/05/22 11:56 72 17 84/63 03/05/22 11:24 97.1 F 74 20 97/65 94 L General Appearance: no apparent distress, alert Neurologic Exam: alert, oriented x 3, cooperative, normal mood/affect, nml cerebellar function, nml station & gait, sensation nml, No motor deficits Respiratory Exam: normal breath sounds, lungs clear, No respiratory distress Cardiovascular Exam: regular rate/rhythm, normal heart sounds, normal peripheral pulses Gastrointestinal/Abdomen Exam: soft, normal bowel sounds, No tenderness, No mass Extremity Exam: normal inspection, normal range of motion, pelvis stable Skin Exam: normal color, warm, dry, No rash Results - Labs Lab/Micro Results: Lab Results-Last 24 Hours 03/05/22 03/05/22 03/05/22 Range/Units 00:04 11:55 11:55 WBC 10.4 (4.0-10.5) x10^3/uL RBC 4.65 (4.1-5.4) x10^6/uL Hgb 12.8 (12.0-16.0) g/dL Hct 40.6 (35-47) % MCV 87.3 (78-100) fL MCH 27.5 (26-32) pg MCHC 31.5 L (32-36) g/dL RDW 15.4 H (11.5-14.0) % Plt Count 317 (150-450) x10^3/uL MPV 10.4 (7.5-11.0) fL Gran % 48.9 (36.0-66.0) % Immature Gran % (Auto) 0.6 H (0.00-0.4) % Nucleat RBC Rel Count 0.0 (0.00-0.1) % Eos # (Auto) 0.63 H (0-0.5) x10^3/uL Immature Gran # (Auto) 0.06 H (0.00-0.03) x10^3u/L Absolute Lymphs (auto) 3.98 (1.0-4.6) x10^3/uL Absolute Monos (auto) 0.56 (0.0-1.3) x10^3/uL Absolute Nucleated RBC 0.00 (0.00-0.01) x10^3u/L Lymphocytes % 38.3 (24.0-44.0) % Monocytes % 5.4 (0.0-12.0) % Eosinophils % 6.1 H (0.00-5.0) % Basophils % 0.7 (0.0-0.4) % Absolute Granulocytes 5.08 (1.4-6.9) x10^3/uL Basophils # 0.07 (0-0.4) x10^3/uL PT (9.4-12.5) SECONDS INR (0.8-3.0) APTT (25.1-36.5) SECONDS D-Dimer (0.0-0.50) ng/mL Sodium 140 (137-145) mmol/L Potassium 4.7 (3.5-5.1) mmol/L Chloride 103 (98-107) mmol/L Carbon Dioxide 25 (22-30) mmol/L Anion Gap 16.5 H (5-15) MEQ/L BUN 32 H (7-17) mg/dL Creatinine 1.75 H (0.52-1.04) mg/dL Estimated GFR 31.1 ML/MIN Glucose 121 H (74-106) mg/dL POC Glucometer (74 to 106) mg/dL Lactic Acid (0.4-2.0) Calcium 11.2 H (8.4-10.2) mg/dL Magnesium 1.9 (1.6-2.3) mg/dL Total Bilirubin 0.40 (0.2-1.3) mg/dL AST 46 H (14-36) U/L ALT 22 (0-35) U/L Alkaline Phosphatase 108 (38-126) U/L Troponin I < 0.012 (0.000-0.034) ng/mL NT-Pro-B Natriuret Pep 458 (0-900) pg/mL Serum Total Protein 7.1 (6.3-8.2) g/dL Albumin 4.1 (3.5-5.0) g/dL Amylase 76 (30-110) U/L Lipase 72 (23-300) U/L Urinalys Dipstick Clnc Urine Color (YELLOW) Urine Appearance (CLEAR) Urine pH (5-6) Ur Specific Howe (1.005-1.025) POC Urine Protein Conf (Negative) Urine Ketones (NEGATIVE) Urine Nitrite (NEGATIVE) Urine Bilirubin (NEGATIVE) Urine Urobilinogen (0-1) mg/dL Urine Leukocytes (NEGATIVE) Urine WBC (Auto) (0-5) /HPF Urine RBC (Auto) (0-2) /HPF U Hyaline Cast (Auto) (0-2) /LPF U Epithel Cells (Auto) (FEW) /HPF Urine Bacteria (Auto) (NEGATIVE) /HPF Urine RBC (0-5) Wili/ul Urine Mucus (Auto) (NEGATIVE) /HPF Ur Culture Indicated? Urine Glucose (NEGATIVE) mg/dL Influenza Type A Ag (NEGATIVE) Influenza Type B Ag (NEGATIVE) RSV (PCR) (Negative) SARS-CoV-2 (PCR) (NEGATIVE) 03/05/22 03/05/22 03/05/22 Range/Units 11:55 11:55 11:57 WBC (4.0-10.5) x10^3/uL RBC (4.1-5.4) x10^6/uL Hgb (12.0-16.0) g/dL Hct (35-47) % MCV (78-100) fL MCH (26-32) pg MCHC (32-36) g/dL RDW (11.5-14.0) % Plt Count (150-450) x10^3/uL MPV (7.5-11.0) fL Gran % (36.0-66.0) % Immature Gran % (Auto) (0.00-0.4) % Nucleat RBC Rel Count (0.00-0.1) % Eos # (Auto) (0-0.5) x10^3/uL Immature Gran # (Auto) (0.00-0.03) x10^3u/L Absolute Lymphs (auto) (1.0-4.6) x10^3/uL Absolute Monos (auto) (0.0-1.3) x10^3/uL Absolute Nucleated RBC (0.00-0.01) x10^3u/L Lymphocytes % (24.0-44.0) % Monocytes % (0.0-12.0) % Eosinophils % (0.00-5.0) % Basophils % (0.0-0.4) % Absolute Granulocytes (1.4-6.9) x10^3/uL Basophils # (0-0.4) x10^3/uL PT 11.5 (9.4-12.5) SECONDS INR 1.09 (0.8-3.0) APTT 26.2 (25.1-36.5) SECONDS D-Dimer 0.25 (0.0-0.50) ng/mL Sodium (137-145) mmol/L Potassium (3.5-5.1) mmol/L Chloride (98-107) mmol/L Carbon Dioxide (22-30) mmol/L Anion Gap (5-15) MEQ/L BUN (7-17) mg/dL Creatinine (0.52-1.04) mg/dL Estimated GFR ML/MIN Glucose (74-106) mg/dL POC Glucometer (74 to 106) mg/dL Lactic Acid (0.4-2.0) Calcium (8.4-10.2) mg/dL Magnesium (1.6-2.3) mg/dL Total Bilirubin (0.2-1.3) mg/dL AST (14-36) U/L ALT (0-35) U/L Alkaline Phosphatase (38-126) U/L Troponin I < 0.012 (0.000-0.034) ng/mL NT-Pro-B Natriuret Pep (0-900) pg/mL Serum Total Protein (6.3-8.2) g/dL Albumin (3.5-5.0) g/dL Amylase (30-110) U/L Lipase (23-300) U/L Urinalys Dipstick Clnc MAIN LAB Urine Color YELLOW (YELLOW) Urine Appearance SLIGHTLY CLOUDY (CLEAR) Urine pH 6.0 (5-6) Ur Specific Howe 1.020 (1.005-1.025) POC Urine Protein Conf NEGATIVE (Negative) Urine Ketones NEGATIVE (NEGATIVE) Urine Nitrite NEGATIVE (NEGATIVE) Urine Bilirubin NEGATIVE (NEGATIVE) Urine Urobilinogen 0.2 (0-1) mg/dL Urine Leukocytes TRACE (NEGATIVE) Urine WBC (Auto) 11-15 (0-5) /HPF Urine RBC (Auto) 0-2 (0-2) /HPF U Hyaline Cast (Auto) 26-50 (0-2) /LPF U Epithel Cells (Auto) RARE (FEW) /HPF Urine Bacteria (Auto) RARE (NEGATIVE) /HPF Urine RBC NEGATIVE (0-5) Wili/ul Urine Mucus (Auto) SLIGHT (NEGATIVE) /HPF Ur Culture Indicated? YES Urine Glucose NEGATIVE (NEGATIVE) mg/dL Influenza Type A Ag (NEGATIVE) Influenza Type B Ag (NEGATIVE) RSV (PCR) (Negative) SARS-CoV-2 (PCR) (NEGATIVE) 03/05/22 03/05/22 03/05/22 Range/Units 12:05 13:58 15:16 WBC (4.0-10.5) x10^3/uL RBC (4.1-5.4) x10^6/uL Hgb (12.0-16.0) g/dL Hct (35-47) % MCV (78-100) fL MCH (26-32) pg MCHC (32-36) g/dL RDW (11.5-14.0) % Plt Count (150-450) x10^3/uL MPV (7.5-11.0) fL Gran % (36.0-66.0) % Immature Gran % (Auto) (0.00-0.4) % Nucleat RBC Rel Count (0.00-0.1) % Eos # (Auto) (0-0.5) x10^3/uL Immature Gran # (Auto) (0.00-0.03) x10^3u/L Absolute Lymphs (auto) (1.0-4.6) x10^3/uL Absolute Monos (auto) (0.0-1.3) x10^3/uL Absolute Nucleated RBC (0.00-0.01) x10^3u/L Lymphocytes % (24.0-44.0) % Monocytes % (0.0-12.0) % Eosinophils % (0.00-5.0) % Basophils % (0.0-0.4) % Absolute Granulocytes (1.4-6.9) x10^3/uL Basophils # (0-0.4) x10^3/uL PT (9.4-12.5) SECONDS INR (0.8-3.0) APTT (25.1-36.5) SECONDS D-Dimer (0.0-0.50) ng/mL Sodium (137-145) mmol/L Potassium (3.5-5.1) mmol/L Chloride (98-107) mmol/L Carbon Dioxide (22-30) mmol/L Anion Gap (5-15) MEQ/L BUN (7-17) mg/dL Creatinine (0.52-1.04) mg/dL Estimated GFR ML/MIN Glucose (74-106) mg/dL POC Glucometer (74 to 106) mg/dL Lactic Acid 1.9 (0.4-2.0) Calcium (8.4-10.2) mg/dL Magnesium (1.6-2.3) mg/dL Total Bilirubin (0.2-1.3) mg/dL AST (14-36) U/L ALT (0-35) U/L Alkaline Phosphatase (38-126) U/L Troponin I < 0.012 (0.000-0.034) ng/mL NT-Pro-B Natriuret Pep (0-900) pg/mL Serum Total Protein (6.3-8.2) g/dL Albumin (3.5-5.0) g/dL Amylase (30-110) U/L Lipase (23-300) U/L Urinalys Dipstick Clnc Urine Color (YELLOW) Urine Appearance (CLEAR) Urine pH (5-6) Ur Specific Howe (1.005-1.025) POC Urine Protein Conf (Negative) Urine Ketones (NEGATIVE) Urine Nitrite (NEGATIVE) Urine Bilirubin (NEGATIVE) Urine Urobilinogen (0-1) mg/dL Urine Leukocytes (NEGATIVE) Urine WBC (Auto) (0-5) /HPF Urine RBC (Auto) (0-2) /HPF U Hyaline Cast (Auto) (0-2) /LPF U Epithel Cells (Auto) (FEW) /HPF Urine Bacteria (Auto) (NEGATIVE) /HPF Urine RBC (0-5) Wili/ul Urine Mucus (Auto) (NEGATIVE) /HPF Ur Culture Indicated? Urine Glucose (NEGATIVE) mg/dL Influenza Type A Ag NEGATIVE (NEGATIVE) Influenza Type B Ag NEGATIVE (NEGATIVE) RSV (PCR) NEGATIVE (Negative) SARS-CoV-2 (PCR) NEGATIVE (NEGATIVE) 03/05/22 03/05/22 03/05/22 Range/Units 17:45 18:02 20:38 WBC (4.0-10.5) x10^3/uL RBC (4.1-5.4) x10^6/uL Hgb (12.0-16.0) g/dL Hct (35-47) % MCV (78-100) fL MCH (26-32) pg MCHC (32-36) g/dL RDW (11.5-14.0) % Plt Count (150-450) x10^3/uL MPV (7.5-11.0) fL Gran % (36.0-66.0) % Immature Gran % (Auto) (0.00-0.4) % Nucleat RBC Rel Count (0.00-0.1) % Eos # (Auto) (0-0.5) x10^3/uL Immature Gran # (Auto) (0.00-0.03) x10^3u/L Absolute Lymphs (auto) (1.0-4.6) x10^3/uL Absolute Monos (auto) (0.0-1.3) x10^3/uL Absolute Nucleated RBC (0.00-0.01) x10^3u/L Lymphocytes % (24.0-44.0) % Monocytes % (0.0-12.0) % Eosinophils % (0.00-5.0) % Basophils % (0.0-0.4) % Absolute Granulocytes (1.4-6.9) x10^3/uL Basophils # (0-0.4) x10^3/uL PT (9.4-12.5) SECONDS INR (0.8-3.0) APTT (25.1-36.5) SECONDS D-Dimer (0.0-0.50) ng/mL Sodium (137-145) mmol/L Potassium (3.5-5.1) mmol/L Chloride (98-107) mmol/L Carbon Dioxide (22-30) mmol/L Anion Gap (5-15) MEQ/L BUN (7-17) mg/dL Creatinine (0.52-1.04) mg/dL Estimated GFR ML/MIN Glucose (74-106) mg/dL POC Glucometer 97 (74 to 106) mg/dL Lactic Acid (0.4-2.0) Calcium (8.4-10.2) mg/dL Magnesium (1.6-2.3) mg/dL Total Bilirubin (0.2-1.3) mg/dL AST (14-36) U/L ALT (0-35) U/L Alkaline Phosphatase (38-126) U/L Troponin I < 0.012 < 0.012 (0.000-0.034) ng/mL NT-Pro-B Natriuret Pep (0-900) pg/mL Serum Total Protein (6.3-8.2) g/dL Albumin (3.5-5.0) g/dL Amylase (30-110) U/L Lipase (23-300) U/L Urinalys Dipstick Clnc Urine Color (YELLOW) Urine Appearance (CLEAR) Urine pH (5-6) Ur Specific Howe (1.005-1.025) POC Urine Protein Conf (Negative) Urine Ketones (NEGATIVE) Urine Nitrite (NEGATIVE) Urine Bilirubin (NEGATIVE) Urine Urobilinogen (0-1) mg/dL Urine Leukocytes (NEGATIVE) Urine WBC (Auto) (0-5) /HPF Urine RBC (Auto) (0-2) /HPF U Hyaline Cast (Auto) (0-2) /LPF U Epithel Cells (Auto) (FEW) /HPF Urine Bacteria (Auto) (NEGATIVE) /HPF Urine RBC (0-5) Wili/ul Urine Mucus (Auto) (NEGATIVE) /HPF Ur Culture Indicated? Urine Glucose (NEGATIVE) mg/dL Influenza Type A Ag (NEGATIVE) Influenza Type B Ag (NEGATIVE) RSV (PCR) (Negative) SARS-CoV-2 (PCR) (NEGATIVE) 03/05/22 03/06/22 03/06/22 Range/Units 21:50 05:20 05:20 WBC 4.9 (4.0-10.5) x10^3/uL RBC 3.80 L (4.1-5.4) x10^6/uL Hgb 10.5 L (12.0-16.0) g/dL Hct 34.0 L (35-47) % MCV 89.5 (78-100) fL MCH 27.6 (26-32) pg MCHC 30.9 L (32-36) g/dL RDW 15.6 H (11.5-14.0) % Plt Count 222 (150-450) x10^3/uL MPV 10.7 (7.5-11.0) fL Gran % 39.2 (36.0-66.0) % Immature Gran % (Auto) 0.4 (0.00-0.4) % Nucleat RBC Rel Count 0.0 (0.00-0.1) % Eos # (Auto) 0.40 (0-0.5) x10^3/uL Immature Gran # (Auto) 0.02 (0.00-0.03) x10^3u/L Absolute Lymphs (auto) 2.22 (1.0-4.6) x10^3/uL Absolute Monos (auto) 0.32 (0.0-1.3) x10^3/uL Absolute Nucleated RBC 0.00 (0.00-0.01) x10^3u/L Lymphocytes % 45.0 H (24.0-44.0) % Monocytes % 6.5 (0.0-12.0) % Eosinophils % 8.1 H (0.00-5.0) % Basophils % 0.8 (0.0-0.4) % Absolute Granulocytes 1.93 (1.4-6.9) x10^3/uL Basophils # 0.04 (0-0.4) x10^3/uL PT (9.4-12.5) SECONDS INR (0.8-3.0) APTT (25.1-36.5) SECONDS D-Dimer (0.0-0.50) ng/mL Sodium 140 (137-145) mmol/L Potassium 4.2 (3.5-5.1) mmol/L Chloride 110 H (98-107) mmol/L Carbon Dioxide 21 L (22-30) mmol/L Anion Gap 12.3 (5-15) MEQ/L BUN 20 H (7-17) mg/dL Creatinine 0.71 (0.52-1.04) mg/dL Estimated GFR > 60.0 ML/MIN Glucose 109 H (74-106) mg/dL POC Glucometer 137 H (74 to 106) mg/dL Lactic Acid (0.4-2.0) Calcium 9.2 D (8.4-10.2) mg/dL Magnesium (1.6-2.3) mg/dL Total Bilirubin 0.20 (0.2-1.3) mg/dL AST 32 (14-36) U/L ALT 15 (0-35) U/L Alkaline Phosphatase 112 (38-126) U/L Troponin I (0.000-0.034) ng/mL NT-Pro-B Natriuret Pep (0-900) pg/mL Serum Total Protein 5.6 L (6.3-8.2) g/dL Albumin 3.0 L (3.5-5.0) g/dL Amylase (30-110) U/L Lipase (23-300) U/L Urinalys Dipstick Clnc Urine Color (YELLOW) Urine Appearance (CLEAR) Urine pH (5-6) Ur Specific Howe (1.005-1.025) POC Urine Protein Conf (Negative) Urine Ketones (NEGATIVE) Urine Nitrite (NEGATIVE) Urine Bilirubin (NEGATIVE) Urine Urobilinogen (0-1) mg/dL Urine Leukocytes (NEGATIVE) Urine WBC (Auto) (0-5) /HPF Urine RBC (Auto) (0-2) /HPF U Hyaline Cast (Auto) (0-2) /LPF U Epithel Cells (Auto) (FEW) /HPF Urine Bacteria (Auto) (NEGATIVE) /HPF Urine RBC (0-5) Wili/ul Urine Mucus (Auto) (NEGATIVE) /HPF Ur Culture Indicated? Urine Glucose (NEGATIVE) mg/dL Influenza Type A Ag (NEGATIVE) Influenza Type B Ag (NEGATIVE) RSV (PCR) (Negative) SARS-CoV-2 (PCR) (NEGATIVE) 03/06/22 Range/Units 07:33 WBC (4.0-10.5) x10^3/uL RBC (4.1-5.4) x10^6/uL Hgb (12.0-16.0) g/dL Hct (35-47) % MCV (78-100) fL MCH (26-32) pg MCHC (32-36) g/dL RDW (11.5-14.0) % Plt Count (150-450) x10^3/uL MPV (7.5-11.0) fL Gran % (36.0-66.0) % Immature Gran % (Auto) (0.00-0.4) % Nucleat RBC Rel Count (0.00-0.1) % Eos # (Auto) (0-0.5) x10^3/uL Immature Gran # (Auto) (0.00-0.03) x10^3u/L Absolute Lymphs (auto) (1.0-4.6) x10^3/uL Absolute Monos (auto) (0.0-1.3) x10^3/uL Absolute Nucleated RBC (0.00-0.01) x10^3u/L Lymphocytes % (24.0-44.0) % Monocytes % (0.0-12.0) % Eosinophils % (0.00-5.0) % Basophils % (0.0-0.4) % Absolute Granulocytes (1.4-6.9) x10^3/uL Basophils # (0-0.4) x10^3/uL PT (9.4-12.5) SECONDS INR (0.8-3.0) APTT (25.1-36.5) SECONDS D-Dimer (0.0-0.50) ng/mL Sodium (137-145) mmol/L Potassium (3.5-5.1) mmol/L Chloride (98-107) mmol/L Carbon Dioxide (22-30) mmol/L Anion Gap (5-15) MEQ/L BUN (7-17) mg/dL Creatinine (0.52-1.04) mg/dL Estimated GFR ML/MIN Glucose (74-106) mg/dL POC Glucometer 109 H (74 to 106) mg/dL Lactic Acid (0.4-2.0) Calcium (8.4-10.2) mg/dL Magnesium (1.6-2.3) mg/dL Total Bilirubin (0.2-1.3) mg/dL AST (14-36) U/L ALT (0-35) U/L Alkaline Phosphatase (38-126) U/L Troponin I (0.000-0.034) ng/mL NT-Pro-B Natriuret Pep (0-900) pg/mL Serum Total Protein (6.3-8.2) g/dL Albumin (3.5-5.0) g/dL Amylase (30-110) U/L Lipase (23-300) U/L Urinalys Dipstick Clnc Urine Color (YELLOW) Urine Appearance (CLEAR) Urine pH (5-6) Ur Specific Howe (1.005-1.025) POC Urine Protein Conf (Negative) Urine Ketones (NEGATIVE) Urine Nitrite (NEGATIVE) Urine Bilirubin (NEGATIVE) Urine Urobilinogen (0-1) mg/dL Urine Leukocytes (NEGATIVE) Urine WBC (Auto) (0-5) /HPF Urine RBC (Auto) (0-2) /HPF U Hyaline Cast (Auto) (0-2) /LPF U Epithel Cells (Auto) (FEW) /HPF Urine Bacteria (Auto) (NEGATIVE) /HPF Urine RBC (0-5) Wili/ul Urine Mucus (Auto) (NEGATIVE) /HPF Ur Culture Indicated? Urine Glucose (NEGATIVE) mg/dL Influenza Type A Ag (NEGATIVE) Influenza Type B Ag (NEGATIVE) RSV (PCR) (Negative) SARS-CoV-2 (PCR) (NEGATIVE) Accuchecks Date 03/06/22 Time 07:42 - Radiology Impressions Radiology Exams & Impressions: Radiology Procedures Category Date Time Status CHEST 1 VIEW (PORTABLE) Stat Exams 03/05/22 12:36 Completed HEAD WITHOUT CONTRAST [CT] Stat Exams 03/05/22 12:24 Completed - Other Procedures and Tests Respiratory Therapy 03/06/22 07:00 Respiratory Therapy Assessment DAILY Assessment/Plan (1) Acute renal insufficiency Current Visit: Yes Status: Acute Assessment & Plan: resolved with hydration Code(s): N28.9 - DISORDER OF KIDNEY AND URETER, UNSPECIFIED (2) Orthostatic hypotension Current Visit: Yes Status: Acute Assessment & Plan: plan to hold lasix on discharge due to hypovolemia, her bun/cr is normal now Code(s): I95.1 - ORTHOSTATIC HYPOTENSION (3) Hypercalcemia Current Visit: Yes Status: Acute Assessment & Plan: resolved with hydration Code(s): E83.52 - HYPERCALCEMIA Hospital Summary - Vitals & Intake/Output Vital Signs: Vital Signs Temperature 95.1 F 03/06/22 07:42 Pulse Rate 60 03/06/22 07:42 Respiratory Rate 16 03/06/22 07:42 Blood Pressure 125/71 03/06/22 07:42 O2 Sat by Pulse Oximetry 96 03/06/22 07:42 Intake & Output: Intake & Output 03/03/22 03/04/22 03/05/22 03/06/22 11:59 11:59 11:59 11:59 Intake Total 2655 Output Total 2300 Balance 355 Weight 63.9 kg 65.4 kg - Lab Result Diagrams: 03/06/22 05:20 03/06/22 05:20 Lab Results-Last 24 Hrs: Lab Results-Last 24 Hours 03/05/22 03/05/22 03/05/22 Range/Units 00:04 11:55 11:55 WBC 10.4 (4.0-10.5) x10^3/uL RBC 4.65 (4.1-5.4) x10^6/uL Hgb 12.8 (12.0-16.0) g/dL Hct 40.6 (35-47) % MCV 87.3 (78-100) fL MCH 27.5 (26-32) pg MCHC 31.5 L (32-36) g/dL RDW 15.4 H (11.5-14.0) % Plt Count 317 (150-450) x10^3/uL MPV 10.4 (7.5-11.0) fL Gran % 48.9 (36.0-66.0) % Immature Gran % (Auto) 0.6 H (0.00-0.4) % Nucleat RBC Rel Count 0.0 (0.00-0.1) % Eos # (Auto) 0.63 H (0-0.5) x10^3/uL Immature Gran # (Auto) 0.06 H (0.00-0.03) x10^3u/L Absolute Lymphs (auto) 3.98 (1.0-4.6) x10^3/uL Absolute Monos (auto) 0.56 (0.0-1.3) x10^3/uL Absolute Nucleated RBC 0.00 (0.00-0.01) x10^3u/L Lymphocytes % 38.3 (24.0-44.0) % Monocytes % 5.4 (0.0-12.0) % Eosinophils % 6.1 H (0.00-5.0) % Basophils % 0.7 (0.0-0.4) % Absolute Granulocytes 5.08 (1.4-6.9) x10^3/uL Basophils # 0.07 (0-0.4) x10^3/uL PT (9.4-12.5) SECONDS INR (0.8-3.0) APTT (25.1-36.5) SECONDS D-Dimer (0.0-0.50) ng/mL Sodium 140 (137-145) mmol/L Potassium 4.7 (3.5-5.1) mmol/L Chloride 103 (98-107) mmol/L Carbon Dioxide 25 (22-30) mmol/L Anion Gap 16.5 H (5-15) MEQ/L BUN 32 H (7-17) mg/dL Creatinine 1.75 H (0.52-1.04) mg/dL Estimated GFR 31.1 ML/MIN Glucose 121 H (74-106) mg/dL POC Glucometer (74 to 106) mg/dL Lactic Acid (0.4-2.0) Calcium 11.2 H (8.4-10.2) mg/dL Magnesium 1.9 (1.6-2.3) mg/dL Total Bilirubin 0.40 (0.2-1.3) mg/dL AST 46 H (14-36) U/L ALT 22 (0-35) U/L Alkaline Phosphatase 108 (38-126) U/L Troponin I < 0.012 (0.000-0.034) ng/mL NT-Pro-B Natriuret Pep 458 (0-900) pg/mL Serum Total Protein 7.1 (6.3-8.2) g/dL Albumin 4.1 (3.5-5.0) g/dL Amylase 76 (30-110) U/L Lipase 72 (23-300) U/L Urinalys Dipstick Clnc Urine Color (YELLOW) Urine Appearance (CLEAR) Urine pH (5-6) Ur Specific Howe (1.005-1.025) POC Urine Protein Conf (Negative) Urine Ketones (NEGATIVE) Urine Nitrite (NEGATIVE) Urine Bilirubin (NEGATIVE) Urine Urobilinogen (0-1) mg/dL Urine Leukocytes (NEGATIVE) Urine WBC (Auto) (0-5) /HPF Urine RBC (Auto) (0-2) /HPF U Hyaline Cast (Auto) (0-2) /LPF U Epithel Cells (Auto) (FEW) /HPF Urine Bacteria (Auto) (NEGATIVE) /HPF Urine RBC (0-5) Wili/ul Urine Mucus (Auto) (NEGATIVE) /HPF Ur Culture Indicated? Urine Glucose (NEGATIVE) mg/dL Influenza Type A Ag (NEGATIVE) Influenza Type B Ag (NEGATIVE) RSV (PCR) (Negative) SARS-CoV-2 (PCR) (NEGATIVE) 03/05/22 03/05/22 03/05/22 Range/Units 11:55 11:55 11:57 WBC (4.0-10.5) x10^3/uL RBC (4.1-5.4) x10^6/uL Hgb (12.0-16.0) g/dL Hct (35-47) % MCV (78-100) fL MCH (26-32) pg MCHC (32-36) g/dL RDW (11.5-14.0) % Plt Count (150-450) x10^3/uL MPV (7.5-11.0) fL Gran % (36.0-66.0) % Immature Gran % (Auto) (0.00-0.4) % Nucleat RBC Rel Count (0.00-0.1) % Eos # (Auto) (0-0.5) x10^3/uL Immature Gran # (Auto) (0.00-0.03) x10^3u/L Absolute Lymphs (auto) (1.0-4.6) x10^3/uL Absolute Monos (auto) (0.0-1.3) x10^3/uL Absolute Nucleated RBC (0.00-0.01) x10^3u/L Lymphocytes % (24.0-44.0) % Monocytes % (0.0-12.0) % Eosinophils % (0.00-5.0) % Basophils % (0.0-0.4) % Absolute Granulocytes (1.4-6.9) x10^3/uL Basophils # (0-0.4) x10^3/uL PT 11.5 (9.4-12.5) SECONDS INR 1.09 (0.8-3.0) APTT 26.2 (25.1-36.5) SECONDS D-Dimer 0.25 (0.0-0.50) ng/mL Sodium (137-145) mmol/L Potassium (3.5-5.1) mmol/L Chloride (98-107) mmol/L Carbon Dioxide (22-30) mmol/L Anion Gap (5-15) MEQ/L BUN (7-17) mg/dL Creatinine (0.52-1.04) mg/dL Estimated GFR ML/MIN Glucose (74-106) mg/dL POC Glucometer (74 to 106) mg/dL Lactic Acid (0.4-2.0) Calcium (8.4-10.2) mg/dL Magnesium (1.6-2.3) mg/dL Total Bilirubin (0.2-1.3) mg/dL AST (14-36) U/L ALT (0-35) U/L Alkaline Phosphatase (38-126) U/L Troponin I < 0.012 (0.000-0.034) ng/mL NT-Pro-B Natriuret Pep (0-900) pg/mL Serum Total Protein (6.3-8.2) g/dL Albumin (3.5-5.0) g/dL Amylase (30-110) U/L Lipase (23-300) U/L Urinalys Dipstick Clnc MAIN LAB Urine Color YELLOW (YELLOW) Urine Appearance SLIGHTLY CLOUDY (CLEAR) Urine pH 6.0 (5-6) Ur Specific Howe 1.020 (1.005-1.025) POC Urine Protein Conf NEGATIVE (Negative) Urine Ketones NEGATIVE (NEGATIVE) Urine Nitrite NEGATIVE (NEGATIVE) Urine Bilirubin NEGATIVE (NEGATIVE) Urine Urobilinogen 0.2 (0-1) mg/dL Urine Leukocytes TRACE (NEGATIVE) Urine WBC (Auto) 11-15 (0-5) /HPF Urine RBC (Auto) 0-2 (0-2) /HPF U Hyaline Cast (Auto) 26-50 (0-2) /LPF U Epithel Cells (Auto) RARE (FEW) /HPF Urine Bacteria (Auto) RARE (NEGATIVE) /HPF Urine RBC NEGATIVE (0-5) Wili/ul Urine Mucus (Auto) SLIGHT (NEGATIVE) /HPF Ur Culture Indicated? YES Urine Glucose NEGATIVE (NEGATIVE) mg/dL Influenza Type A Ag (NEGATIVE) Influenza Type B Ag (NEGATIVE) RSV (PCR) (Negative) SARS-CoV-2 (PCR) (NEGATIVE) 03/05/22 03/05/22 03/05/22 Range/Units 12:05 13:58 15:16 WBC (4.0-10.5) x10^3/uL RBC (4.1-5.4) x10^6/uL Hgb (12.0-16.0) g/dL Hct (35-47) % MCV (78-100) fL MCH (26-32) pg MCHC (32-36) g/dL RDW (11.5-14.0) % Plt Count (150-450) x10^3/uL MPV (7.5-11.0) fL Gran % (36.0-66.0) % Immature Gran % (Auto) (0.00-0.4) % Nucleat RBC Rel Count (0.00-0.1) % Eos # (Auto) (0-0.5) x10^3/uL Immature Gran # (Auto) (0.00-0.03) x10^3u/L Absolute Lymphs (auto) (1.0-4.6) x10^3/uL Absolute Monos (auto) (0.0-1.3) x10^3/uL Absolute Nucleated RBC (0.00-0.01) x10^3u/L Lymphocytes % (24.0-44.0) % Monocytes % (0.0-12.0) % Eosinophils % (0.00-5.0) % Basophils % (0.0-0.4) % Absolute Granulocytes (1.4-6.9) x10^3/uL Basophils # (0-0.4) x10^3/uL PT (9.4-12.5) SECONDS INR (0.8-3.0) APTT (25.1-36.5) SECONDS D-Dimer (0.0-0.50) ng/mL Sodium (137-145) mmol/L Potassium (3.5-5.1) mmol/L Chloride (98-107) mmol/L Carbon Dioxide (22-30) mmol/L Anion Gap (5-15) MEQ/L BUN (7-17) mg/dL Creatinine (0.52-1.04) mg/dL Estimated GFR ML/MIN Glucose (74-106) mg/dL POC Glucometer (74 to 106) mg/dL Lactic Acid 1.9 (0.4-2.0) Calcium (8.4-10.2) mg/dL Magnesium (1.6-2.3) mg/dL Total Bilirubin (0.2-1.3) mg/dL AST (14-36) U/L ALT (0-35) U/L Alkaline Phosphatase (38-126) U/L Troponin I < 0.012 (0.000-0.034) ng/mL NT-Pro-B Natriuret Pep (0-900) pg/mL Serum Total Protein (6.3-8.2) g/dL Albumin (3.5-5.0) g/dL Amylase (30-110) U/L Lipase (23-300) U/L Urinalys Dipstick Clnc Urine Color (YELLOW) Urine Appearance (CLEAR) Urine pH (5-6) Ur Specific Howe (1.005-1.025) POC Urine Protein Conf (Negative) Urine Ketones (NEGATIVE) Urine Nitrite (NEGATIVE) Urine Bilirubin (NEGATIVE) Urine Urobilinogen (0-1) mg/dL Urine Leukocytes (NEGATIVE) Urine WBC (Auto) (0-5) /HPF Urine RBC (Auto) (0-2) /HPF U Hyaline Cast (Auto) (0-2) /LPF U Epithel Cells (Auto) (FEW) /HPF Urine Bacteria (Auto) (NEGATIVE) /HPF Urine RBC (0-5) Wili/ul Urine Mucus (Auto) (NEGATIVE) /HPF Ur Culture Indicated? Urine Glucose (NEGATIVE) mg/dL Influenza Type A Ag NEGATIVE (NEGATIVE) Influenza Type B Ag NEGATIVE (NEGATIVE) RSV (PCR) NEGATIVE (Negative) SARS-CoV-2 (PCR) NEGATIVE (NEGATIVE) 03/05/22 03/05/22 03/05/22 Range/Units 17:45 18:02 20:38 WBC (4.0-10.5) x10^3/uL RBC (4.1-5.4) x10^6/uL Hgb (12.0-16.0) g/dL Hct (35-47) % MCV (78-100) fL MCH (26-32) pg MCHC (32-36) g/dL RDW (11.5-14.0) % Plt Count (150-450) x10^3/uL MPV (7.5-11.0) fL Gran % (36.0-66.0) % Immature Gran % (Auto) (0.00-0.4) % Nucleat RBC Rel Count (0.00-0.1) % Eos # (Auto) (0-0.5) x10^3/uL Immature Gran # (Auto) (0.00-0.03) x10^3u/L Absolute Lymphs (auto) (1.0-4.6) x10^3/uL Absolute Monos (auto) (0.0-1.3) x10^3/uL Absolute Nucleated RBC (0.00-0.01) x10^3u/L Lymphocytes % (24.0-44.0) % Monocytes % (0.0-12.0) % Eosinophils % (0.00-5.0) % Basophils % (0.0-0.4) % Absolute Granulocytes (1.4-6.9) x10^3/uL Basophils # (0-0.4) x10^3/uL PT (9.4-12.5) SECONDS INR (0.8-3.0) APTT (25.1-36.5) SECONDS D-Dimer (0.0-0.50) ng/mL Sodium (137-145) mmol/L Potassium (3.5-5.1) mmol/L Chloride (98-107) mmol/L Carbon Dioxide (22-30) mmol/L Anion Gap (5-15) MEQ/L BUN (7-17) mg/dL Creatinine (0.52-1.04) mg/dL Estimated GFR ML/MIN Glucose (74-106) mg/dL POC Glucometer 97 (74 to 106) mg/dL Lactic Acid (0.4-2.0) Calcium (8.4-10.2) mg/dL Magnesium (1.6-2.3) mg/dL Total Bilirubin (0.2-1.3) mg/dL AST (14-36) U/L ALT (0-35) U/L Alkaline Phosphatase (38-126) U/L Troponin I < 0.012 < 0.012 (0.000-0.034) ng/mL NT-Pro-B Natriuret Pep (0-900) pg/mL Serum Total Protein (6.3-8.2) g/dL Albumin (3.5-5.0) g/dL Amylase (30-110) U/L Lipase (23-300) U/L Urinalys Dipstick Clnc Urine Color (YELLOW) Urine Appearance (CLEAR) Urine pH (5-6) Ur Specific Howe (1.005-1.025) POC Urine Protein Conf (Negative) Urine Ketones (NEGATIVE) Urine Nitrite (NEGATIVE) Urine Bilirubin (NEGATIVE) Urine Urobilinogen (0-1) mg/dL Urine Leukocytes (NEGATIVE) Urine WBC (Auto) (0-5) /HPF Urine RBC (Auto) (0-2) /HPF U Hyaline Cast (Auto) (0-2) /LPF U Epithel Cells (Auto) (FEW) /HPF Urine Bacteria (Auto) (NEGATIVE) /HPF Urine RBC (0-5) Wili/ul Urine Mucus (Auto) (NEGATIVE) /HPF Ur Culture Indicated? Urine Glucose (NEGATIVE) mg/dL Influenza Type A Ag (NEGATIVE) Influenza Type B Ag (NEGATIVE) RSV (PCR) (Negative) SARS-CoV-2 (PCR) (NEGATIVE) 03/05/22 03/06/22 03/06/22 Range/Units 21:50 05:20 05:20 WBC 4.9 (4.0-10.5) x10^3/uL RBC 3.80 L (4.1-5.4) x10^6/uL Hgb 10.5 L (12.0-16.0) g/dL Hct 34.0 L (35-47) % MCV 89.5 (78-100) fL MCH 27.6 (26-32) pg MCHC 30.9 L (32-36) g/dL RDW 15.6 H (11.5-14.0) % Plt Count 222 (150-450) x10^3/uL MPV 10.7 (7.5-11.0) fL Gran % 39.2 (36.0-66.0) % Immature Gran % (Auto) 0.4 (0.00-0.4) % Nucleat RBC Rel Count 0.0 (0.00-0.1) % Eos # (Auto) 0.40 (0-0.5) x10^3/uL Immature Gran # (Auto) 0.02 (0.00-0.03) x10^3u/L Absolute Lymphs (auto) 2.22 (1.0-4.6) x10^3/uL Absolute Monos (auto) 0.32 (0.0-1.3) x10^3/uL Absolute Nucleated RBC 0.00 (0.00-0.01) x10^3u/L Lymphocytes % 45.0 H (24.0-44.0) % Monocytes % 6.5 (0.0-12.0) % Eosinophils % 8.1 H (0.00-5.0) % Basophils % 0.8 (0.0-0.4) % Absolute Granulocytes 1.93 (1.4-6.9) x10^3/uL Basophils # 0.04 (0-0.4) x10^3/uL PT (9.4-12.5) SECONDS INR (0.8-3.0) APTT (25.1-36.5) SECONDS D-Dimer (0.0-0.50) ng/mL Sodium 140 (137-145) mmol/L Potassium 4.2 (3.5-5.1) mmol/L Chloride 110 H (98-107) mmol/L Carbon Dioxide 21 L (22-30) mmol/L Anion Gap 12.3 (5-15) MEQ/L BUN 20 H (7-17) mg/dL Creatinine 0.71 (0.52-1.04) mg/dL Estimated GFR > 60.0 ML/MIN Glucose 109 H (74-106) mg/dL POC Glucometer 137 H (74 to 106) mg/dL Lactic Acid (0.4-2.0) Calcium 9.2 D (8.4-10.2) mg/dL Magnesium (1.6-2.3) mg/dL Total Bilirubin 0.20 (0.2-1.3) mg/dL AST 32 (14-36) U/L ALT 15 (0-35) U/L Alkaline Phosphatase 112 (38-126) U/L Troponin I (0.000-0.034) ng/mL NT-Pro-B Natriuret Pep (0-900) pg/mL Serum Total Protein 5.6 L (6.3-8.2) g/dL Albumin 3.0 L (3.5-5.0) g/dL Amylase (30-110) U/L Lipase (23-300) U/L Urinalys Dipstick Clnc Urine Color (YELLOW) Urine Appearance (CLEAR) Urine pH (5-6) Ur Specific Howe (1.005-1.025) POC Urine Protein Conf (Negative) Urine Ketones (NEGATIVE) Urine Nitrite (NEGATIVE) Urine Bilirubin (NEGATIVE) Urine Urobilinogen (0-1) mg/dL Urine Leukocytes (NEGATIVE) Urine WBC (Auto) (0-5) /HPF Urine RBC (Auto) (0-2) /HPF U Hyaline Cast (Auto) (0-2) /LPF U Epithel Cells (Auto) (FEW) /HPF Urine Bacteria (Auto) (NEGATIVE) /HPF Urine RBC (0-5) Wili/ul Urine Mucus (Auto) (NEGATIVE) /HPF Ur Culture Indicated? Urine Glucose (NEGATIVE) mg/dL Influenza Type A Ag (NEGATIVE) Influenza Type B Ag (NEGATIVE) RSV (PCR) (Negative) SARS-CoV-2 (PCR) (NEGATIVE) 03/06/22 Range/Units 07:33 WBC (4.0-10.5) x10^3/uL RBC (4.1-5.4) x10^6/uL Hgb (12.0-16.0) g/dL Hct (35-47) % MCV (78-100) fL MCH (26-32) pg MCHC (32-36) g/dL RDW (11.5-14.0) % Plt Count (150-450) x10^3/uL MPV (7.5-11.0) fL Gran % (36.0-66.0) % Immature Gran % (Auto) (0.00-0.4) % Nucleat RBC Rel Count (0.00-0.1) % Eos # (Auto) (0-0.5) x10^3/uL Immature Gran # (Auto) (0.00-0.03) x10^3u/L Absolute Lymphs (auto) (1.0-4.6) x10^3/uL Absolute Monos (auto) (0.0-1.3) x10^3/uL Absolute Nucleated RBC (0.00-0.01) x10^3u/L Lymphocytes % (24.0-44.0) % Monocytes % (0.0-12.0) % Eosinophils % (0.00-5.0) % Basophils % (0.0-0.4) % Absolute Granulocytes (1.4-6.9) x10^3/uL Basophils # (0-0.4) x10^3/uL PT (9.4-12.5) SECONDS INR (0.8-3.0) APTT (25.1-36.5) SECONDS D-Dimer (0.0-0.50) ng/mL Sodium (137-145) mmol/L Potassium (3.5-5.1) mmol/L Chloride (98-107) mmol/L Carbon Dioxide (22-30) mmol/L Anion Gap (5-15) MEQ/L BUN (7-17) mg/dL Creatinine (0.52-1.04) mg/dL Estimated GFR ML/MIN Glucose (74-106) mg/dL POC Glucometer 109 H (74 to 106) mg/dL Lactic Acid (0.4-2.0) Calcium (8.4-10.2) mg/dL Magnesium (1.6-2.3) mg/dL Total Bilirubin (0.2-1.3) mg/dL AST (14-36) U/L ALT (0-35) U/L Alkaline Phosphatase (38-126) U/L Troponin I (0.000-0.034) ng/mL NT-Pro-B Natriuret Pep (0-900) pg/mL Serum Total Protein (6.3-8.2) g/dL Albumin (3.5-5.0) g/dL Amylase (30-110) U/L Lipase (23-300) U/L Urinalys Dipstick Clnc Urine Color (YELLOW) Urine Appearance (CLEAR) Urine pH (5-6) Ur Specific Howe (1.005-1.025) POC Urine Protein Conf (Negative) Urine Ketones (NEGATIVE) Urine Nitrite (NEGATIVE) Urine Bilirubin (NEGATIVE) Urine Urobilinogen (0-1) mg/dL Urine Leukocytes (NEGATIVE) Urine WBC (Auto) (0-5) /HPF Urine RBC (Auto) (0-2) /HPF U Hyaline Cast (Auto) (0-2) /LPF U Epithel Cells (Auto) (FEW) /HPF Urine Bacteria (Auto) (NEGATIVE) /HPF Urine RBC (0-5) Wili/ul Urine Mucus (Auto) (NEGATIVE) /HPF Ur Culture Indicated? Urine Glucose (NEGATIVE) mg/dL Influenza Type A Ag (NEGATIVE) Influenza Type B Ag (NEGATIVE) RSV (PCR) (Negative) SARS-CoV-2 (PCR) (NEGATIVE) Micro Results-Entire Visit: Accuchecks Date 03/06/22 Time 07:42 - Radiology Exams Ordered Rad Exams-Entire Visit: Radiology Procedures Category Date Time Status CHEST 1 VIEW (PORTABLE) Stat Exams 03/05/22 12:36 Completed HEAD WITHOUT CONTRAST [CT] Stat Exams 03/05/22 12:24 Completed - Procedures and Test Procedures and Tests throughout Hospitalization: Therapy Orders & Screens 03/05/22 17:32 RT Screen per Nursing Assess ONCE Comment: Protocol Order Physician Instructions: Greater than 3 points order RT Admission Screen Reason For Exam: Triggered on Admission Diagnosis: orthostatic hypotension Diagnosis: orthostatic hypotension Pneumonia: No Home O2: No Asthma: Yes CHF: No Home CPAP/BIPAP: No Home Nebs/MDI: Yes Total Points: 9 Smoking Cessation Education ONCE Comment: Diagnosis: orthostatic hypotension Smoking Status: Current every day smoker How long have you smoked: years Have you smoked in the past 12 months: Yes Approximately how many cigarettes per day: 5 Do you dip or chew tobacco: No 03/06/22 07:00 Respiratory Therapy Assessment DAILY Comment: Diagnosis: orthostatic hypotension - Discharge Disposition: Home, Self-Care Condition: Stable Prescriptions: Continue Baclofen 10 mg [Lioresal 10 mg] 10 mg PO DAILY Docusate Sodium [Doc-Q-Lace] 100 mg PO HS Cetirizine HCl [Zyrtec] 10 mg PO DAILY Gabapentin 800 mg PO BID Fluoxetine HCl [Prozac] 80 mg PO DAILY Magnesium Oxide 400 mg [Mag-Ox 400] 800 mg PO DAILY Simvastatin 20Mg [Zocor 20Mg] 20 mg PO HS Estrogens, Conjugated [Premarin] 0.3 mg PO DAILY Oxybutynin Chloride 5 mg [Ditropan 5 MG] 5 mg PO BID Liothyronine Sodium 5 mcg PO DAILY Metformin HCl 500 mg [Glucophage 500 MG] 500 mg PO BIDWMEALS Budesonide/Formoterol Fumarate [Symbicort 160-4.5 Mcg Inhaler] 2 puffs IH BID Tamsulosin HCl 0.4 mg [Flomax 0.4 MG] 0.8 mg PO HS Interferon Beta-1A/Albumin [Rebif Rebidose 22 Mcg/0.5 ml] 0.5 ml SQ UD predniSONE [Prednisone] 20 mg PO DAILY Albuterol Sulfate [Albuterol Sulfate Hfa] 2 puffs IH Q4HPRN PRN PRN Reason: Shortness Of Breath/Wheezing Ipratropium [place] Hfa [Atrovent HFA MDI] 2 puff IH Q4HPRN PRN PRN Reason: Shortness Of Breath/Wheezing Fluticasone Propionate [Flonase NASAL] 2 spray IH DAILY Montelukast Sodium 10 mg PO DAILY Levothyroxine Sodium 112 mcg PO DAILY Gabapentin [Neurontin ] 300 mg PO LUNCH Alendronate Sodium 70 mg [Fosamax 70 MG] 1 each PO WEEKLY Hydrocodone/Acetaminophen [Hydrocodone-Acetamin 7.5-325] 1 each PO Q4-6HPRN PRN PRN Reason: Pain Ergocalciferol (Vitamin D2) [Vitamin D2] 1 each PO WEEKLY Discontinued Potassium Chloride [K-Dur] 20 meq PO DAILY Meloxicam 7.5 mg [Mobic 7.5 MG] 7.5 mg PO BID Furosemide 20 mg [Lasix 20 mg] 20 mg PO DAILY Follow up with: SARA MONTELONGO [Primary Care Provider] - 1 Week
[2022-03-06] MEDS: Neurontin PO SCH (09:12)
[2022-03-06] MEDS: NORCO 7.5/325 MG TAB PO PRN (09:14)
== END 2022-03-06 10:33 | disposition home or self-care (01) ==
LOC: ED 11:03 → MED SURG 16:35
PROVIDERS: ADMIT Family Medicine; ATTEND Family Medicine
DX: N28.9 Disorder of kidney and ureter, unspecified (principal); I95.1 Orthostatic hypotension; E83.52 Hypercalcemia; E11.9 Type 2 diabetes mellitus without complications; Z79.899 Other long term (current) drug therapy; Z20.828 Contact with and (suspected) exposure to other viral communicable diseases; Z72.0 Tobacco use
CPT/HCPCS: 0241U; 36000; 36415; 70450; 71045; 80053; 81015; 82150; 82947; 83036; 83605; 83690; 83735; 83880; 84484; 85025; 85379; 85610; 85730; 87077; 87086; 87186; 93005; 94640; 94760; 96360; 99285; G0378; A9270-GY

== ENCOUNTER 2022-09-08 12:56 | Emergency (ER) | payer MEDICARE ==
[2022-09-08] MEDS ORDERED: MORPHINE SULFATE 2 MG INJ IV ONE (13:34)
[2022-09-08] MEDS ORDERED: Zofran 4 MG/2 ML VIAL IV ONE (13:34)
--- NOTE | 2022-09-08 13:38 | ERPHSYRPT ---
- History of Present Illness Time Seen by Provider: 09/08/22 13:36 Historian: patient Exam Limitations: no limitations Patient Subjective Stated Complaint: " My stomach has been hurting the past couple of days, I am constipated and my stomach hurts worse when I cough". Triage Nursing Assessment: PT presents to ER with complaints of RUQ abdominal pains, pt is tender upon exam. Abdomen appears to be full and slightly distended. Respirations are easy, but wheezes noted. Has slight cough, hx of COPD. States cough has been productive and when coughing, pain increases. Pt is alert and oriented x 3. Skin is pink, warm, and dry. Pt is able to comminicate and ambulate without difficulty. Rates pain 6/10 scale and states pain is constant. Physician History: Patient 67-year-old female presents to emergency department for evaluation of right periumbilical pain x2 days. Patient states her abdomen has been distending. No trauma. No fever. Pain described as an ache that is localized. No radiation. Pain reproduced with palpation. Patient has a history of COPD and is requesting a breathing treatment as she typically gets her self treatments at home. Patient is not complaining otherwise of chest symptomology or shortness of breath. Patient is on opiates chronically for pain. Patient otherwise voices no other complaints or concerns at this time. Portions of this note were created with voice recognition technology. There may be grammatical, spelling, punctuation or sound alike errors Timing/Duration: day(s) (2 days) Activities at Onset: none Quality: aching Abdominal Pain Onset Location: periumbilical (Pain just right to the periumbilical region.) Pain Radiation: no radiation Severity of Pain-Max: moderate Severity of Pain-Current: mild Modifying Factors: Improves With: nothing Associated Symptoms: denies symptoms (Patient believes she is constipated.) Previous symptoms: no prior history Allergies/Adverse Reactions: amoxicillin trihydrate [From Augmentin] Allergy (Severe, Verified 09/08/22 13:27) cefaclor [From Ceclor] Allergy (Severe, Verified 09/08/22 13:27) syncope levofloxacin [From Levaquin] Allergy (Severe, Verified 09/08/22 13:27) syncope potassium clavulanate [From Augmentin] Allergy (Severe, Verified 09/08/22 13:27) Cephalosporins Allergy (Mild, Verified 09/08/22 13:27) doxycycline Allergy (Mild, Verified 09/08/22 13:27) sertraline HCl [From Zoloft] Allergy (Mild, Verified 09/08/22 13:27) clindamycin Allergy (Verified 09/08/22 13:27) sulfamethoxazole [From Bactrim] Allergy (Verified 09/08/22 13:27) trimethoprim [From Bactrim] Allergy (Verified 09/08/22 13:27) Home Medications: Docusate Sodium [Doc-Q-Lace] 100 mg PO HS 02/28/13 [History] Estrogens, Conjugated [Premarin] 0.3 mg PO DAILY 02/28/13 [History] Fluoxetine HCl [Prozac] 80 mg PO DAILY 02/28/13 [History] Gabapentin 800 mg PO BID 02/28/13 [History] Magnesium Oxide 400 mg [Mag-Ox 400] 800 mg PO DAILY 02/28/13 [History] Oxybutynin Chloride 5 mg [Ditropan 5 MG] 5 mg PO BID 02/28/13 [History] Simvastatin 20Mg [Zocor 20Mg] 20 mg PO HS 02/28/13 [History] Budesonide/Formoterol Fumarate [Symbicort 160-4.5 Mcg Inhaler] 2 puffs IH BID 05/26/14 [History] Liothyronine Sodium 5 mcg PO DAILY 05/26/14 [History] Metformin HCl 500 mg [Glucophage 500 MG] 500 mg PO BIDWMEALS 05/26/14 [History] Tamsulosin HCl 0.4 mg [Flomax 0.4 MG] 0.8 mg PO HS 06/08/15 [History] Albuterol Sulfate [Albuterol Sulfate Hfa] 2 puffs IH Q4HPRN PRN 03/06/19 [History] Fluticasone Propionate [Flonase NASAL] 2 spray IH DAILY 03/06/19 [History] Interferon Beta-1A/Albumin [Rebif Rebidose 22 Mcg/0.5 ml] 0.5 ml SQ UD 03/06/19 [History] Ipratropium [place] Hfa [Atrovent HFA MDI] 2 puff IH Q4HPRN PRN 03/06/19 [History] Levothyroxine Sodium 112 mcg PO DAILY 03/06/19 [History] Montelukast Sodium 10 mg PO DAILY 03/06/19 [History] predniSONE [Prednisone] 20 mg PO DAILY 03/06/19 [History] Alendronate Sodium 70 mg [Fosamax 70 MG] 1 each PO WEEKLY 03/05/22 [History] Ergocalciferol (Vitamin D2) [Vitamin D2] 1 each PO WEEKLY 03/05/22 [History] Gabapentin [Neurontin ] 300 mg PO LUNCH 03/05/22 [History] Hydrocodone/Acetaminophen [Hydrocodone-Acetamin 7.5-325] 1 each PO Q4-6HPRN PRN 03/05/22 [History] Hx Tetanus, Diphtheria Vaccination/Date Given: No Hx Influenza Vaccination/Date Given: No Hx Pneumococcal Vaccination/Date Given: No Immunizations Up to Date: No Travel Risk - International Travel Have you traveled outside of the country in past 3 weeks: No - Coronavirus Screening Are you exhibiting any of the following symptoms?: No - Vaccine Status Have you recieved a Covid-19 vaccination: No - Review of Systems Constitutional: No Symptoms, No Fever, No Chills Eyes: No Symptoms Ears, Nose, & Throat: No Symptoms Respiratory: No Symptoms, No Cough, No Dyspnea Cardiac: No Symptoms, No Chest Pain, No Edema, No Syncope Abdominal/Gastrointestinal: No Symptoms, No Abdominal Pain, No Nausea, No Vomiting, No Diarrhea Genitourinary Symptoms: No Symptoms, No Dysuria Musculoskeletal: No Symptoms, No Back Pain, No Neck Pain Skin: No Symptoms, No Rash Neurological: No Symptoms, No Dizziness, No Focal Weakness, No Sensory Changes Psychological: No Symptoms Endocrine: No Symptoms Hematologic/Lymphatic: No Symptoms Immunological/Allergic: No Symptoms All Other Systems: Reviewed and Negative - Past Medical History Pertinent Past Medical History: Yes Neurological History: Other ENT History: Other Cardiac History: Arrhythmia Respiratory History: Asthma, COPD Endocrine Medical History: Diabetes Type II, Other Musculoskeletal History: Osteoarthritis, Osteoporosis GI Medical History: No Pertinent History History: Other Psycho-Social History: Depression Female Reproductive Disorders: No Pertinent History Other Medical History: MULTIPLE SCLEROSIS, SMOKER, TACHYCARDIA, - Past Surgical History Past Surgical History: Yes Neuro Surgical History: No Pertinent History Cardiac: No Pertinent History Respiratory: No Pertinent History Gastrointestinal: No Pertinent History Genitourinary: No Pertinent History Musculoskeletal: No Pertinent History, Orthopedic Surgery Female Surgical History: Hysterectomy Other Surgical History: pt had thyroidectomy also had surgery on stomach where she gave her self shots for ms area had a nodular area that needed removed,MRSA on stomach I&D. right hip sx - Social History Smoking Status: Current every day smoker How long have you smoked: 50 years Exposure to second hand smoke: No Drug Use: none Patient Lives Alone: Yes - Nursing Vital Signs Nursing Vital Signs: Initial Vital Signs Temperature 96.8 F 09/08/22 13:18 Pulse Rate 102 H 09/08/22 13:18 Respiratory Rate 16 09/08/22 13:18 Blood Pressure 103/78 09/08/22 13:18 O2 Sat by Pulse Oximetry 98 09/08/22 13:18 Pain Scale Pain Intensity 5 - Physical Exam General Appearance: no apparent distress, alert Eye Exam: PERRL/EOMI, eyes nml inspection Ears, Nose, Throat Exam: normal ENT inspection, TMs normal, pharynx normal, moist mucous membranes Neck Exam: normal inspection, non-tender, supple, full range of motion Respiratory Exam: normal breath sounds, lungs clear, airway intact, No chest tenderness, No respiratory distress Cardiovascular Exam: regular rate/rhythm, normal heart sounds, normal peripheral pulses Gastrointestinal/Abdomen Exam: soft, normal bowel sounds, tenderness, distention (Right periumbilical tenderness. Abdomen mildly distended), No mass, No guarding Pelvic Exam: not done Rectal Exam: deferred Back Exam: normal inspection, normal range of motion, No CVA tenderness, No vertebral tenderness Extremity Exam: normal inspection, normal range of motion, pelvis stable Neurologic Exam: alert, oriented x 3, cooperative, normal mood/affect, nml cerebellar function, sensation nml, No motor deficits Skin Exam: normal color, warm, dry Lymphatic Exam: No adenopathy SpO2 Interpretation: normal SpO2: 98 O2 Delivery: Room Air - Course Nursing assessment & vital signs reviewed: Yes - CT Exams Abdomen/Pelvis CT Interpretation: Tele-radiologist Report (Right middle lobe hazy interstitial opacity, lung nodule, gallbladder moderately distended. No gallstones. 4.5 cm right upper pole renal cyst. Right renal angiomyolipoma. Cirrhotic liver's. Spine arthritis) - Radiology Ultrasound Exam Gallbladder Ultrasound: discussed w/radiologist (Gallbladder moderately distended. CBD is 5.6 mm. Liver hemangioma/hypoechogenic lesion of liver. Renal cyst) Ordered Tests: Active Orders 24 hr Category Date Time Status IV Insertion STAT Care 09/08/22 13:34 Active ABDOMEN AND PELVIS W/0 CONTRAS [CT] Stat Exams 09/08/22 13:34 Completed GALLBLADDER [US] Stat Exams 09/08/22 15:39 Completed CBC W DIFF Stat Lab 09/08/22 13:05 Completed CMP Stat Lab 09/08/22 13:05 Completed LIPASE Stat Lab 09/08/22 13:05 Completed TROPONIN Q4H Lab 09/08/22 13:05 Completed TROPONIN Q4H Lab 09/08/22 17:45 Ordered TROPONIN Q4H Lab 09/08/22 21:45 Ordered UA W/RFX CULTURE Stat Lab 09/08/22 13:05 Received Medication Summary Generic Name Dose Route Start Last Admin Trade Name Freq PRN Reason Stop Dose Admin Sodium Chloride 1,000 mls @ 50 mls/hr 09/08/22 13:45 09/08/22 14:29 Sodium Chloride 0.9% 1000 Ml IV 10/08/22 13:44 50 mls/hr .Q20H HAYDEN Administration Discontinued Medications Generic Name Dose Route Start Last Admin Trade Name Freq PRN Reason Stop Dose Admin Morphine Sulfate 2 mg 09/08/22 13:34 09/08/22 14:30 Morphine Sulfate 2 Mg/Ml Inj IV 09/08/22 13:35 2 mg STAT ONE Administration Morphine Sulfate Confirm 09/08/22 14:27 Morphine Sulfate 2 Mg/Ml Inj Administered 09/08/22 14:28 Dose 2 mg .ROUTE .STK-MED ONE Ondansetron HCl 4 mg 09/08/22 13:34 09/08/22 14:30 Ondansetron Hcl 4 Mg/2 Ml Vial IV 09/08/22 13:35 4 mg STAT ONE Administration Ondansetron HCl Confirm 09/08/22 14:27 Ondansetron Hcl 4 Mg/2 Ml Vial Administered 09/08/22 14:28 Dose 4 mg .ROUTE .STK-MED ONE Lab/Rad Data: Laboratory Result Diagrams 09/08/22 13:05 09/08/22 13:05 Laboratory Results 09/08/22 09/08/22 09/08/22 Range/Units 13:05 13:05 13:05 WBC 9.2 (4.0-10.5) x10^3/uL RBC 4.58 (4.1-5.4) x10^6/uL Hgb 12.4 (12.0-16.0) g/dL Hct 40.2 (35-47) % MCV 87.8 (78-100) fL MCH 27.1 (26-32) pg MCHC 30.8 L (32-36) g/dL RDW 16.0 H (11.5-14.0) % Plt Count 205 (150-450) x10^3/uL MPV 10.2 (7.5-11.0) fL Gran % 64.4 (36.0-66.0) % Immature Gran % (Auto) 0.5 H (0.00-0.4) % Nucleat RBC Rel Count 0.0 (0.00-0.1) % Eos # (Auto) 0.33 (0-0.5) x10^3/uL Immature Gran # (Auto) 0.05 H (0.00-0.03) x10^3u/L Absolute Lymphs (auto) 2.15 (1.0-4.6) x10^3/uL Absolute Monos (auto) 0.71 (0.0-1.3) x10^3/uL Absolute Nucleated RBC 0.00 (0.00-0.01) x10^3u/L Lymphocytes % 23.4 L (24.0-44.0) % Monocytes % 7.7 (0.0-12.0) % Eosinophils % 3.6 (0.00-5.0) % Basophils % 0.4 (0.0-0.4) % Absolute Granulocytes 5.92 (1.4-6.9) x10^3/uL Basophils # 0.04 (0-0.4) x10^3/uL Sodium 138 (137-145) mmol/L Potassium 4.0 (3.5-5.1) mmol/L Chloride 105 (98-107) mmol/L Carbon Dioxide 25 (22-30) mmol/L Anion Gap 12.0 (5-15) MEQ/L BUN 21 H (7-17) mg/dL Creatinine 1.08 H (0.52-1.04) mg/dL Estimated GFR 54.1 ML/MIN Glucose 113 H (74-106) mg/dL Calcium 9.3 (8.4-10.2) mg/dL Total Bilirubin 0.50 (0.2-1.3) mg/dL AST 33 (14-36) U/L ALT 25 (0-35) U/L Alkaline Phosphatase 81 (38-126) U/L Troponin I < 0.012 (0.000-0.034) ng/mL Serum Total Protein 7.5 (6.3-8.2) g/dL Albumin 4.3 (3.5-5.0) g/dL Lipase 53 (23-300) U/L - Progress Progress: improved Progress Note: Patient states she has been constipated for 3 to 4 days. Patient had a large bowel movement prior to coming to the ED. Her's pain significantly improved. Work-up otherwise negative. Patient states she wants to go home and try laxatives. Patient takes hydrocodone for chronic pain. This is likely contributing to her constipation. Patient otherwise voices no other complaints or concerns at this time. Will discharge home. Patient agrees to follow-up w ith primary care doctor within 48 hours for reevaluation. Dictation disclaimer 09/08/22 17:04 Counseled pt/family regarding: lab results, diagnosis, need for follow-up, rad results - Departure Departure Disposition: Home Clinical Impression: Lung nodule, GALLBLADDER DISTENTION, Renal cyst, Cirrhosis of liver, Arthritis of spine, Liver hemangioma, Constipation, Abdominal pain Condition: Stable Critical Care Time: No Referrals: SARA MONTELONGO [Primary Care Provider] - Follow up/PCP as directed
[2022-09-08] MEDS ORDERED: Sodium Chloride 0.9% 1000 ML 1,000 ML IV SCH (13:45)
[2022-09-08 13:54] LABS: Absolute Neutrophil Ct (ANC) 5.92 x10^3/uL (1.4-6.9); Basophil (Absolute #) 0.04 x10^3/uL (0-0.4); Eosinophil % 3.6 % (0.00-5.0); Eosinophil (Absolute #) 0.33 x10^3/uL (0-0.5); Hematocrit 40.2 % (35-47); Hemoglobin 12.4 g/dL (12.0-16.0); Lymphocyte (Absolute #) 2.15 x10^3/uL (1.0-4.6); Lymphocytes % 23.4 % (24.0-44.0); Mean Cell Volume 87.8 fL (78-100); Mean Corpuscular Hemoglobin 27.1 pg (26-32); Mean Corpuscular Hgb Concent. 30.8 g/dL (32-36); Mean Platelet Volume 10.2 fL (7.5-11.0); Monocyte (Absolute #) 0.71 x10^3/uL (0.0-1.3); Monocytes % 7.7 % (0.0-12.0); Neutrophil % 64.4 % (36.0-66.0); Platelet Count 205 x10^3/uL (150-450); Red Blood Count 4.58 x10^6/uL (4.1-5.4); White Blood Count 9.2 x10^3/uL (4.0-10.5)
[2022-09-08 13:55] LABS: ALBUMIN 4.3 g/dL (3.5-5.0); BILIRUBIN,TOTAL 0.5 mg/dL (0.2-1.3); Calcium 9.3 mg/dL (8.4-10.2); Creatinine 1 1.08 mg/dL (0.52-1.04); EST GLOMERULAR FILTRATION RATE 54.1 ML/MIN; Total Protein 7.5 g/dL (6.3-8.2)
--- NOTE | 2022-09-08 14:14 | XRAY ---
Indication: Right upper quadrant pain 2 days. Constipation. Multiple contiguous axial images obtained through the abdomen and pelvis without contrast. Comparison: October 19, 2020 Lung bases again demonstrates incompletely visualized right middle lobe hazy interstitial alveolar opacities. Stable left lower lobe calcified and noncalcified nodules. Heart not enlarged. There is minimal right total hip arthroplasty with bipolar prosthesis now producing beam artifact. Noncontrasted stomach and bowel loops nonobstructed with normal appendix. Little to no colonic fecal debris. Gallbladder is now moderately distended without gallstones or biliary distention. Stable 4.5 cm right upper pole renal cyst with punctate peripheral calcification and small right mid renal angiomyolipoma. Again cirrhotic appearing liver and hysterectomy. No free fluid/air. Remaining pancreas, spleen, adrenal glands, kidneys, ureters, and bladder are unremarkable for noncontrast exam. There remains mild aortoiliac calcifications without AAA. Osseous structures intact again with minimal degenerative changes throughout the spine and incidental L4 limbus vertebrae. Lower anterior abdominal wall again demonstrates subcutaneous benign-appearing calcifications presumed iatrogenic. Impression: 1. New beam artifact from right total hip arthroplasty. 2. New distended gallbladder without gallstones or biliary distention. Sonogram may yield further information. 3. Again incompletely visualized right middle lobe interstitial alveolar opacities. 4. Stable chronic findings including complex right renal cyst, right renal angiomyolipoma, cirrhotic liver without ascites, arteriosclerotic disease, and chronic bony findings.
[2022-09-08] MEDS ORDERED: MORPHINE SULFATE 2 MG INJ ONE (14:27)
[2022-09-08] MEDS ORDERED: Sodium Chloride 0.9% 1000 ML 1,000 ML ONE (14:27)
[2022-09-08] MEDS ORDERED: Zofran 4 MG/2 ML VIAL ONE (14:27)
[2022-09-08 16:11] VITALS: BP 115/69
--- NOTE | 2022-09-08 16:41 | XRAY ---
Indication: Distended gallbladder on same-day CT. Two-dimensional gallbladder sonogram performed. Comparison: May 26, 2014 Gallbladder moderately distended without gallstones, wall thickening, or pericholecystic fluid. Common bile duct measures 5.6 mm. No intrahepatic biliary distention. Visualized liver demonstrates new 2.5 x 2.9 x 3.6 cm right lobe hypoechogenic lesion with peripheral color flow, possible hemangioma in this demographic. Right kidney measures 9.8 cm in length with 4.3 cm cyst. Visualized pancreas unremarkable. No ascites. Impression: 1. Distended gallbladder without cholelithiasis or cholecystitis. 2. Incidental hepatic hypoechogenic lesion. Rule out hemangioma. 3. Right renal cyst. Comment: Preliminary report was given.
[2022-09-08 17:02] VITALS: PULSE 76
[2022-09-08 17:05] VITALS: O2SAT 98
== END 2022-09-08 17:19 | disposition home or self-care (01) ==
LOC: ED 12:56
DX: K59.00 Constipation, unspecified (principal); R91.1 Solitary pulmonary nodule; K82.8 Other specified diseases of gallbladder; N28.1 Cyst of kidney, acquired; K74.60 Unspecified cirrhosis of liver; M47.9 Spondylosis, unspecified; D18.09 Hemangioma of other sites; R10.33 Periumbilical pain; E11.9 Type 2 diabetes mellitus without complications; Z79.891 Long term (current) use of opiate analgesic; Z79.84 Long term (current) use of oral hypoglycemic drugs; Z79.52 Long term (current) use of systemic steroids; Z79.899 Other long term (current) drug therapy; Z28.310 Unvaccinated for COVID-19; Z72.0 Tobacco use
CPT/HCPCS: 36000; 36415; 74176; 76705; 80053; 83690; 84484; 85025; 96374; 96375; 99284; J2270; J2405

== ENCOUNTER 2022-09-14 20:58 | Observation (INO) | payer MEDICARE ==
[2022-09-14] MEDS ORDERED: DUONEB 0.5-3 MG/3 ml Neb IH ONE ×2 (21:18→21:29)
[2022-09-14] MEDS ORDERED: solu-MEDROL 125 MG, Sterile H2O 10 ml 2 ML IV ONE ×2 (22:08)
[2022-09-14] MEDS ORDERED: BABY ASPIRIN 81 MG CHEW PO ONE (22:09)
[2022-09-14] MEDS ORDERED: Sodium Chloride 0.9% 1000 ML 1,000 ML IV STA ×2 (22:11→23:22)
[2022-09-14 22:15] LABS: INFLUENZA A NEGATIVE (NEGATIVE); INFLUENZA B NEGATIVE (NEGATIVE); RESPIRATORY SYNCTIAL VIRUS NEGATIVE (Negative); SARS-CoV-2 Xpert Express NEGATIVE (NEGATIVE)
--- NOTE | 2022-09-14 22:15 | ERPHSYRPT ---
- History of Present Illness Time Seen by Provider: 09/14/22 21:00 Source: patient Exam Limitations: no limitations Patient Subjective Stated Complaint: pt states she has been sick feeling for a month. symptoms began with sinus congestion, for several weeks, cough, states "it dropped down to my chest" states she is smoker. states she has not been tested covid or any viruses. Triage Nursing Assessment: pt is alert and oriented, able to answer questions, states she has no pain at this time. pt has a non productive cough intermittently. inspiratory and exp wheezes heard throughout. Physician History: 67 years old female with history of tobacco abuse presented in the ER with chief complaint of worsening cough, shortness of breath and not feeling well for the last couple of months. Patient has been seen outpatient and is using nebs with no significant relief. Patient reports wheezing and worsening cough productive of yellow-green sputum copious in amount. Earlier she started to feel dizzy and lightheaded and checked her blood pressure and systolic was in 80s. Denies any chest pain but because of wheezing some discomfort. No fever or chills reported. Reports it started as upper respiratory infection and gradually went down in the chest. Timing/Duration: week(s), gradual onset, worse Activities at Onset: rest Severity of Dyspnea-Max: moderate Severity of Dyspnea-Current: moderate Possible Cause: unknown cause Modifying Factors: Improves With: albuterol nebulizer. Worsens With: coughing Associated Symptoms: cough, chest pain/discomfort, lightheadedness, wheezing, productive cough, No hemoptysis Allergies/Adverse Reactions: amoxicillin trihydrate [From Augmentin] Allergy (Severe, Verified 09/08/22 13:27) cefaclor [From Ceclor] Allergy (Severe, Verified 09/08/22 13:27) syncope levofloxacin [From Levaquin] Allergy (Severe, Verified 09/08/22 13:27) syncope potassium clavulanate [From Augmentin] Allergy (Severe, Verified 09/08/22 13:27) Cephalosporins Allergy (Mild, Verified 09/08/22 13:27) doxycycline Allergy (Mild, Verified 09/08/22 13:27) sertraline HCl [From Zoloft] Allergy (Mild, Verified 09/08/22 13:27) clindamycin Allergy (Verified 09/08/22 13:27) sulfamethoxazole [From Bactrim] Allergy (Verified 09/08/22 13:27) trimethoprim [From Bactrim] Allergy (Verified 09/08/22 13:27) Home Medications: Docusate Sodium [Doc-Q-Lace] 100 mg PO HS 02/28/13 [History] Estrogens, Conjugated [Premarin] 0.3 mg PO DAILY 02/28/13 [History] Fluoxetine HCl [Prozac] 80 mg PO DAILY 02/28/13 [History] Gabapentin 800 mg PO BID 02/28/13 [History] Magnesium Oxide 400 mg [Mag-Ox 400] 800 mg PO DAILY 02/28/13 [History] Oxybutynin Chloride 5 mg [Ditropan 5 MG] 5 mg PO BID 02/28/13 [History] Simvastatin 20Mg [Zocor 20Mg] 20 mg PO HS 02/28/13 [History] Budesonide/Formoterol Fumarate [Symbicort 160-4.5 Mcg Inhaler] 2 puffs IH BID 05/26/14 [History] Liothyronine Sodium 5 mcg PO DAILY 05/26/14 [History] Metformin HCl 500 mg [Glucophage 500 MG] 500 mg PO BIDWMEALS 05/26/14 [History] Tamsulosin HCl 0.4 mg [Flomax 0.4 MG] 0.8 mg PO HS 06/08/15 [History] Albuterol Sulfate [Albuterol Sulfate Hfa] 2 puffs IH Q4HPRN PRN 03/06/19 [ History] Fluticasone Propionate [Flonase NASAL] 2 spray IH DAILY 03/06/19 [History] Interferon Beta-1A/Albumin [Rebif Rebidose 22 Mcg/0.5 ml] 0.5 ml SQ UD 03/06/19 [History] Ipratropium [place] Hfa [Atrovent HFA MDI] 2 puff IH Q4HPRN PRN 03/06/19 [History] Levothyroxine Sodium 112 mcg PO DAILY 03/06/19 [History] Montelukast Sodium 10 mg PO DAILY 03/06/19 [History] predniSONE [Prednisone] 20 mg PO DAILY 05/26/19 [History] Alendronate Sodium 70 mg [Fosamax 70 MG] 1 each PO WEEKLY 03/05/22 [History] Ergocalciferol (Vitamin D2) [Vitamin D2] 1 each PO WEEKLY 03/05/22 [History] Gabapentin [Neurontin ] 300 mg PO LUNCH 03/05/22 [History] Hydrocodone/Acetaminophen [Hydrocodone-Acetamin 7.5-325] 1 each PO Q4-6HPRN PRN 03/05/22 [History] Hx Tetanus, Diphtheria Vaccination/Date Given: No Hx Influenza Vaccination/Date Given: No Hx Pneumococcal Vaccination/Date Given: No Travel Risk - International Travel Have you traveled outside of the country in past 3 weeks: No - Coronavirus Screening Are you exhibiting any of the following symptoms?: Yes Symptoms: Cough: New Onset, Headaches/Body Aches/Fatigue Close contact with a COVID-19 positive Pt in past 14-21 Days: No - Vaccine Status Have you recieved a Covid-19 vaccination: No - Review of Systems Constitutional: Fatigue, Weakness Eyes: No Symptoms Ears, Nose, & Throat: Nose Congestion Respiratory: Cough, Dyspnea, Dyspnea on Exertion ([place]), Wheezing Cardiac: No Symptoms Abdominal/Gastrointestinal: No Symptoms Genitourinary Symptoms: No Symptoms Musculoskeletal: No Symptoms Skin: No Symptoms Neurological: No Symptoms Psychological: No Symptoms Endocrine: No Symptoms Hematologic/Lymphatic: No Symptoms Immunological/Allergic: No Symptoms - Past Medical History Pertinent Past Medical History: Yes Neurological History: Other ENT History: Other Cardiac History: Arrhythmia Respiratory History: Asthma, COPD Endocrine Medical History: Diabetes Type II, Other Musculoskeletal History: Osteoarthritis, Osteoporosis GI Medical History: No Pertinent History History: Other Psycho-Social History: Depression Female Reproductive Disorders: No Pertinent History Other Medical History: MULTIPLE SCLEROSIS, SMOKER, TACHYCARDIA, - Past Surgical History Past Surgical History: Yes Neuro Surgical History: No Pertinent History Cardiac: No Pertinent History Respiratory: No Pertinent History Gastrointestinal: No Pertinent History Genitourinary: No Pertinent History Musculoskeletal: No Pertinent History, Orthopedic Surgery Female Surgical History: Hysterectomy Other Surgical History: pt had thyroidectomy also had surgery on stomach where she gave her self shots for ms area had a nodular area that needed removed,MRSA on stomach I&D. right hip sx - Social History Smoking Status: Current every day smoker How long have you smoked: 50 years Exposure to second hand smoke: No Drug Use: none Patient Lives Alone: Yes - Nursing Vital Signs Nursing Vital Signs: Initial Vital Signs Temperature 97.2 F 09/14/22 21:03 Pulse Rate 89 09/14/22 21:03 Respiratory Rate 18 09/14/22 21:03 Blood Pressure 91/72 09/14/22 21:03 O2 Sat by Pulse Oximetry 95 09/14/22 21:03 Pain Scale Pain Intensity 0 - Physical Exam General Appearance: no apparent distress, alert Eye Exam: PERRL/EOMI Ears, Nose, Throat Exam: hearing grossly normal, nasal congestion Neck Exam: normal inspection, non-tender, supple, full range of motion Respiratory Exam: diminished breath sounds, crackles/rales, wheezing Cardiovascular/Chest Exam: normal heart sounds, regular rate/rhythm Abdominal/Gastrointestinal Exam: soft, normal bowel sounds, No tenderness Extremity Exam: non-tender, normal range of motion Neurologic Exam: alert, oriented x 3, cooperative Skin Exam: normal color SpO2 Interpretation: normal SpO2: 95 O2 Delivery: Room Air - Course EKG Interpreted by Me: RATE (96), Sinus Rhythm, Left [place] Deviation, NORMAL INTERVALS, Non-specific ST Changes Ordered Tests: Active Orders 24 hr Category Date Time Status EKG-ER Only STAT Care 09/14/22 22:11 Active IV Insertion STAT Care 09/14/22 22:11 Active CHEST 1 VIEW (PORTABLE) Stat Exams 09/14/22 21:16 Taken BLOOD CULTURE Stat Lab 09/14/22 22:08 Ordered CBC W DIFF Stat Lab 09/14/22 21:55 Completed CMP Stat Lab 09/14/22 21:55 Completed Lactic Acid Stat Lab 09/14/22 22:55 Completed MAGNESIUM Stat Lab 09/14/22 21:55 Completed NT PRO BNP Stat Lab 09/14/22 21:55 Completed PROCALCITONIN Stat Lab 09/14/22 21:55 Completed TROPONIN Q4H Lab 09/14/22 21:55 Completed TROPONIN Q4H Lab 09/15/22 02:15 Ordered TROPONIN Q4H Lab 09/15/22 06:15 Ordered Respiratory Therapy Assessment DAILY RT 09/14/22 21:39 Active Medication Summary Generic Name Dose Route Start Last Admin Trade Name Freq PRN Reason Stop Dose Admin Sodium Chloride 1,000 mls @ 999 mls/hr 09/14/22 23:22 09/14/22 23:59 Sodium Chloride 0.9% 1000 Ml IV 09/15/22 00:22 999 mls/hr .Q1H1M STA Administration Azithromycin 500 mg in 250 mls @ 250 mls/hr 09/14/22 23:27 09/14/22 23:59 Zithromax 500 Mg/ 250 Ml Nacl Premix IV 09/15/22 00:26 250 ml/hr STAT STA 250 mls/hr Administration Discontinued Medications Generic Name Dose Route Start Last Admin Trade Name Suzette PRN Reason Stop Dose Admin Albuterol/Ipratropium 3 ml 09/14/22 21:18 09/14/22 21:29 Ipratropium/Albuterol Sulfate 3 Ml Ampul.Neb IH 09/14/22 21:19 3 ml STAT ONE Administration Albuterol/Ipratropium Confirm 09/14/22 21:29 Ipratropium/Albuterol Sulfate 3 Ml Ampul.Neb Administered 09/14/22 21:30 Dose 3 ml IH .STK-MED ONE Aspirin 324 mg 09/14/22 22:09 09/14/22 22:19 Aspirin 81 Mg Tab.Chew PO 09/14/22 22:10 324 mg STAT ONE Administration Methylprednisolone Sodium 0 mg 09/14/22 22:08 09/14/22 22:19 Succinate 125 mg/ Sterile IV 09/14/22 22:09 125 mg Water 2 ml STAT ONE Administration Sodium Chloride 1,000 mls @ 999 mls/hr 09/14/22 22:11 09/14/22 22:20 Sodium Chloride 0.9% 1000 Ml IV 09/14/22 23:11 999 mls/hr .Q1H1M STA Administration Sodium Chloride Confirm 09/14/22 22:18 Sodium Chloride 0.9% 1000 Ml Administered 09/14/22 22:19 Dose 1,000 mls @ ud .ROUTE .STK-MED ONE Aztreonam 2 gm/ Sodium 100 mls @ 200 mls/hr 09/14/22 23:28 Chloride IV 09/14/22 23:57 STAT ONE Sodium Chloride Confirm 09/14/22 23:37 Sodium Chloride 0.9% 1000 Ml Administered 09/14/22 23:38 Dose 1,000 mls @ ud .ROUTE .STK-MED ONE Methylprednisolone Sodium Succinate Confirm 09/14/22 22:18 Methylprednis Sod Succ 125 Mg/2 Ml Vial Administered 09/14/22 22:19 Dose 125 mg .ROUTE .[employer] ONE Sterile Water Confirm 09/14/22 22:18 Water For Injection,Sterile 10 Ml Vial Administered 09/14/22 22:19 Dose 10 ml IJ .STK-MED ONE Lab/Rad Data: Laboratory Result Diagrams 09/14/22 21:55 09/14/22 21:55 Laboratory Results 09/14/22 09/14/22 09/14/22 Range/Units 22:55 21:55 21:55 WBC (4.0-10.5) x10^3/uL RBC (4.1-5.4) x10^6/uL Hgb (12.0-16.0) g/dL Hct (35-47) % MCV (78-100) fL MCH (26-32) pg MCHC (32-36) g/dL RDW (11.5-14.0) % Plt Count (150-450) x10^3/uL MPV (7.5-11.0) fL Gran % (36.0-66.0) % Immature Gran % (Auto) (0.00-0.4) % Nucleat RBC Rel Count (0.00-0.1) % Eos # (Auto) (0-0.5) x10^3/uL Immature Gran # (Auto) (0.00-0.03) x10^3u/L Absolute Lymphs (auto) (1.0-4.6) x10^3/uL Absolute Monos (auto) (0.0-1.3) x10^3/uL Absolute Nucleated RBC (0.00-0.01) x10^3u/L Lymphocytes % (24.0-44.0) % Monocytes % (0.0-12.0) % Eosinophils % (0.00-5.0) % Basophils % (0.0-0.4) % Absolute Granulocytes (1.4-6.9) x10^3/uL Basophils # (0-0.4) x10^3/uL Sodium (137-145) mmol/L Potassium (3.5-5.1) mmol/L Chloride (98-107) mmol/L Carbon Dioxide (22-30) mmol/L Anion Gap (5-15) MEQ/L BUN (7-17) mg/dL Creatinine (0.52-1.04) mg/dL Estimated GFR ML/MIN Glucose (74-106) mg/dL Lactic Acid 4.2 H (0.4-2.0) Calcium (8.4-10.2) mg/dL Magnesium (1.6-2.3) mg/dL Total Bilirubin (0.2-1.3) mg/dL AST (14-36) U/L ALT (0-35) U/L Alkaline Phosphatase (38-126) U/L Troponin I < 0.012 (0.000-0.034) ng/mL NT-Pro-B Natriuret Pep (0-900) pg/mL Serum Total Protein (6.3-8.2) g/dL Albumin (3.5-5.0) g/dL Procalcitonin 0.085 H (0.030-0.080) ng/mL Influenza Type A Ag (NEGATIVE) Influenza Type B Ag (NEGATIVE) RSV (PCR) (Negative) SARS-CoV-2 (PCR) (NEGATIVE) Group A Strep Antibody (NEGATIVE) 09/14/22 09/14/22 09/14/22 Range/Units 21:55 21:55 21:35 WBC 7.5 (4.0-10.5) x10^3/uL RBC 4.82 (4.1-5.4) x10^6/uL Hgb 13.3 (12.0-16.0) g/dL Hct 42.0 (35-47) % MCV 87.1 (78-100) fL MCH 27.6 (26-32) pg MCHC 31.7 L (32-36) g/dL RDW 15.7 H (11.5-14.0) % Plt Count 198 (150-450) x10^3/uL MPV 10.7 (7.5-11.0) fL Gran % 41.5 (36.0-66.0) % Immature Gran % (Auto) 0.4 (0.00-0.4) % Nucleat RBC Rel Count 0.0 (0.00-0.1) % Eos # (Auto) 0.28 (0-0.5) x10^3/uL Immature Gran # (Auto) 0.03 (0.00-0.03) x10^3u/L Absolute Lymphs (auto) 3.58 (1.0-4.6) x10^3/uL Absolute Monos (auto) 0.46 (0.0-1.3) x10^3/uL Absolute Nucleated RBC 0.00 (0.00-0.01) x10^3u/L Lymphocytes % 47.6 H (24.0-44.0) % Monocytes % 6.1 (0.0-12.0) % Eosinophils % 3.7 (0.00-5.0) % Basophils % 0.7 (0.0-0.4) % Absolute Granulocytes 3.12 (1.4-6.9) x10^3/uL Basophils # 0.05 (0-0.4) x10^3/uL Sodium 138 (137-145) mmol/L Potassium 3.4 L (3.5-5.1) mmol/L Chloride 105 (98-107) mmol/L Carbon Dioxide 22 (22-30) mmol/L Anion Gap 13.9 (5-15) MEQ/L BUN 12 (7-17) mg/dL Creatinine 1.10 H (0.52-1.04) mg/dL Estimated GFR 53.0 ML/MIN Glucose 132 H (74-106) mg/dL Lactic Acid (0.4-2.0) Calcium 10.1 (8.4-10.2) mg/dL Magnesium 1.6 (1.6-2.3) mg/dL Total Bilirubin 0.30 (0.2-1.3) mg/dL AST 45 H (14-36) U/L ALT 24 (0-35) U/L Alkaline Phosphatase 87 (38-126) U/L Troponin I (0.000-0.034) ng/mL NT-Pro-B Natriuret Pep 69.3 (0-900) pg/mL Serum Total Protein 8.1 (6.3-8.2) g/dL Albumin 4.6 (3.5-5.0) g/dL Procalcitonin (0.030-0.080) ng/mL Influenza Type A Ag (NEGATIVE) Influenza Type B Ag (NEGATIVE) RSV (PCR) (Negative) SARS-CoV-2 (PCR) (NEGATIVE) Group A Strep Antibody NOT DETECTED (NEGATIVE) 09/14/22 Range/Units 21:35 WBC (4.0-10.5) x10^3/uL RBC (4.1-5.4) x10^6/uL Hgb (12.0-16.0) g/dL Hct (35-47) % MCV (78-100) fL MCH (26-32) pg MCHC (32-36) g/dL RDW (11.5-14.0) % Plt Count (150-450) x10^3/uL MPV (7.5-11.0) fL Gran % (36.0-66.0) % Immature Gran % (Auto) (0.00-0.4) % Nucleat RBC Rel Count (0.00-0.1) % Eos # (Auto) (0-0.5) x10^3/uL Immature Gran # (Auto) (0.00-0.03) x10^3u/L Absolute Lymphs (auto) (1.0-4.6) x10^3/uL Absolute Monos (auto) (0.0-1.3) x10^3/uL Absolute Nucleated RBC (0.00-0.01) x10^3u/L Lymphocytes % (24.0-44.0) % Monocytes % (0.0-12.0) % Eosinophils % (0.00-5.0) % Basophils % (0.0-0.4) % Absolute Granulocytes (1.4-6.9) x10^3/uL Basophils # (0-0.4) x10^3/uL Sodium (137-145) mmol/L Potassium (3.5-5.1) mmol/L Chloride (98-107) mmol/L Carbon Dioxide (22-30) mmol/L Anion Gap (5-15) MEQ/L BUN (7-17) mg/dL Creatinine (0.52-1.04) mg/dL Estimated GFR ML/MIN Glucose (74-106) mg/dL Lactic Acid (0.4-2.0) Calcium (8.4-10.2) mg/dL Magnesium (1.6-2.3) mg/dL Total Bilirubin (0.2-1.3) mg/dL AST (14-36) U/L ALT (0-35) U/L Alkaline Phosphatase (38-126) U/L Troponin I (0.000-0.034) ng/mL NT-Pro-B Natriuret Pep (0-900) pg/mL Serum Total Protein (6.3-8.2) g/dL Albumin (3.5-5.0) g/dL Procalcitonin (0.030-0.080) ng/mL Influenza Type A Ag NEGATIVE (NEGATIVE) Influenza Type B Ag NEGATIVE (NEGATIVE) RSV (PCR) NEGATIVE (Negative) SARS-CoV-2 (PCR) NEGATIVE (NEGATIVE) Group A Strep Antibody (NEGATIVE) - Progress Progress: improved Air Movement: fair Progress Note: 09/14/22 23:31 67-year-old is evaluated for worsening shortness of breath and low blood pressure earlier at home. Patient blood pressure is in low 100s, given fluid bolus, Solu-Medrol and DuoNeb, on reevaluation feeling better. Patient is not hypoxic while in the ER and maintaining oxygen saturation in mid 90s. EKG did not show any acute ST elevations. Negative initial troponin. Normal white count, lactate of 4.2 and elevated procalcitonin. Chest x-ray showed bilateral airspace disease, started on broad-spectrum antibiotics. Azactam and Zithromax. Discussed with and patient is admitted. Blood Culture(s) Obtained: Yes Antibiotics given: Yes Discussed with : Elver Will see patient in: hospital (full admit) Counseled pt/family regarding: lab results, diagnosis, rad results - Departure Departure Disposition: Observation Clinical Impression: Pneumonia, Severe sepsis, Chronic obstructive lung disease Condition: Stable Critical Care Time: No Referrals: SARA MONTELONGO [Primary Care Provider] - Follow up/PCP as directed
[2022-09-14 22:16] LABS: Absolute Neutrophil Ct (ANC) 3.12 x10^3/uL (1.4-6.9); Basophil (Absolute #) 0.05 x10^3/uL (0-0.4); Eosinophil % 3.7 % (0.00-5.0); Eosinophil (Absolute #) 0.28 x10^3/uL (0-0.5); Hemoglobin 13.3 g/dL (12.0-16.0); Lymphocyte (Absolute #) 3.58 x10^3/uL (1.0-4.6); Lymphocytes % 47.6 % (24.0-44.0); Mean Cell Volume 87.1 fL (78-100); Mean Corpuscular Hemoglobin 27.6 pg (26-32); Mean Corpuscular Hgb Concent. 31.7 g/dL (32-36); Mean Platelet Volume 10.7 fL (7.5-11.0); Monocyte (Absolute #) 0.46 x10^3/uL (0.0-1.3); Monocytes % 6.1 % (0.0-12.0); Neutrophil % 41.5 % (36.0-66.0); Platelet Count 198 x10^3/uL (150-450); Red Blood Count 4.82 x10^6/uL (4.1-5.4); Red Cell Distribution Width 15.7 % (11.5-14.0); White Blood Count 7.5 x10^3/uL (4.0-10.5)
[2022-09-14] MEDS ORDERED: Sterile H2O 10 ml IJ ONE (22:18)
[2022-09-14] MEDS ORDERED: solu-MEDROL ONE (22:18)
[2022-09-14] MEDS ORDERED: Sodium Chloride 0.9% 1000 ML 1,000 ML ONE ×2 (22:18→23:37)
[2022-09-14 22:31] LABS: ALBUMIN 4.6 g/dL (3.5-5.0); ANION GAP 13.9 MEQ/L (5-15); BILIRUBIN,TOTAL 0.3 mg/dL (0.2-1.3); Calcium 10.1 mg/dL (8.4-10.2); Creatinine 1 1.1 mg/dL (0.52-1.04); MAGNESIUM 1.6 mg/dL (1.6-2.3); NT PRO BNP 69.3 pg/mL (0-900); Potassium 3.4 mmol/L (3.5-5.1); Total Protein 8.1 g/dL (6.3-8.2)
[2022-09-14] MEDS ORDERED: Zithromax 500 MG/ 250 ML NaCl Premix 500 MG/250 ML IVPB IV STA (23:27)
[2022-09-14] MEDS ORDERED: AZACTAM 1 GM*** 2 GM in Sodium Chloride 0.9% 100 ML IV ONE (23:28)
[2022-09-15] MEDS ORDERED: DUONEB 0.5-3 MG/3 ml Neb IH SCH (01:58)
[2022-09-15] MEDS ORDERED: DUONEB 0.5-3 MG/3 ml Neb IH ONE (02:25)
[2022-09-15] MEDS: DUONEB 0.5-3 MG/3 ml Neb IH SCH ×6 (02:41→23:08)
[2022-09-15] MEDS ORDERED: NICODERM CQ 14 MG TOP SCH (03:00)
[2022-09-15] MEDS: Sodium Chloride 0.9% 1000 ML 1,000 ML IV SCH ×2 (03:11→12:39)
[2022-09-15 04:55] LABS: Absolute Neutrophil Ct (ANC) 2.42 x10^3/uL (1.4-6.9); Basophil (Absolute #) 0.01 x10^3/uL (0-0.4); Eosinophil % 0.3 % (0.00-5.0); Eosinophil (Absolute #) 0.01 x10^3/uL (0-0.5); Hematocrit 36.2 % (35-47); Hemoglobin 11.1 g/dL (12.0-16.0); Lymphocyte (Absolute #) 0.78 x10^3/uL (1.0-4.6); Lymphocytes % 23.7 % (24.0-44.0); Mean Cell Volume 88.1 fL (78-100); Mean Corpuscular Hgb Concent. 30.7 g/dL (32-36); Mean Platelet Volume 10.5 fL (7.5-11.0); Monocyte (Absolute #) 0.05 x10^3/uL (0.0-1.3); Monocytes % 1.5 % (0.0-12.0); Neutrophil % 73.6 % (36.0-66.0); Platelet Count 162 x10^3/uL (150-450); Red Blood Count 4.11 x10^6/uL (4.1-5.4); Red Cell Distribution Width 16.1 % (11.5-14.0); White Blood Count 3.3 x10^3/uL (4.0-10.5)
[2022-09-15] MEDS ORDERED: AZACTAM 1 GM*** 2 GM in Sodium Chloride 0.9% 100 ML IV SCH (06:00)
[2022-09-15] MEDS ORDERED: Sterile H2O 10 ml IJ ONE (06:03)
[2022-09-15] MEDS ORDERED: solu-MEDROL ONE (06:03)
[2022-09-15 06:06] LABS: ALBUMIN 3.7 g/dL (3.5-5.0); ANION GAP 14.9 MEQ/L (5-15); BILIRUBIN,TOTAL 0.1 mg/dL (0.2-1.3); Calcium 8.8 mg/dL (8.4-10.2); Creatinine 1 1.02 mg/dL (0.52-1.04); EST GLOMERULAR FILTRATION RATE 57.8 ML/MIN; Total Protein 6.6 g/dL (6.3-8.2)
[2022-09-15] MEDS: solu-MEDROL 60 MG, Sterile H2O 10 ml 2 ML IV SCH ×6 (06:10→17:07)
[2022-09-15] MEDS: AZACTAM 1 GM*** 2 GM in Sodium Chloride 0.9% 100 ML IV SCH ×3 (08:37→21:00)
--- NOTE | 2022-09-15 09:02 | XRAY ---
Indication: Cough. Comparison: March 05, 2022 Portable chest again demonstrates normal heart and lungs. Bony thorax intact again with osteopenia, old right clavicle fracture, right humeral enchondroma, and base of neck surgical clips. No new/acute findings.
--- NOTE | 2022-09-15 09:03 | PCM.HP ---
History of Present Illness - Chief Complaint Chief Complaint: Severe sepsis, pneumonia History of Present Illness: is a 67 year old female pt of mine with hx asthma, COPD, MS, DM, HTN, hypothyroid, TOB use who was admitted through ER with pneumonia and sepsis. She had been sick for about 2 mo, then had tahcycardia with lightheadedness and presyncope yesterday so came in through the ER. CXR showed bilat airspace disease on preliminary read. She had been given outpatient antibiotics and has multiple drug allergies, so was started on azactam and zithromax. This morning she says she is feeling much better and is breathing better. Her BP was 79/47 and she states her BP is often low. She c/o a "tad bit" of fever, subjective. Has had cough productive of milky "gooey" sputum. - Review of Systems Constitutional: Fever, Fatigue Respiratory: Cough, Short Of Breath, Wheezing Cardiac: Edema (had edema bliat LE, took diuretic last week and it resolved), Palpitations Abdominal/Gastrointestinal: Abdominal Pain (RUQ, decreased from previously noted in office), Diarrhea (chronic, related to constipation), Constipation (chronic) Skin: Other (dry skin, no rash) Medications & Allergies Home Medications: Home Medication List Docusate Sodium [Doc-Q-Lace] 100 mg PO HS 02/28/13 [History Confirmed 09/08/22] Estrogens, Conjugated [Premarin] 0.3 mg PO DAILY 02/28/13 [History Confirmed 09/08/22] Fluoxetine HCl [Prozac] 80 mg PO DAILY 02/28/13 [History Confirmed 09/08/22] Gabapentin 800 mg PO BID 02/28/13 [History Confirmed 09/08/22] Magnesium Oxide 400 mg [Mag-Ox 400] 800 mg PO DAILY 02/28/13 [History Confirmed 09/08/22] Oxybutynin Chloride 5 mg [Ditropan 5 MG] 5 mg PO BID 02/28/13 [History Confirmed 09/08/22] Simvastatin 20Mg [Zocor 20Mg] 20 mg PO HS 02/28/13 [History Confirmed 09/08/22] Budesonide/Formoterol Fumarate [Symbicort 160-4.5 Mcg Inhaler] 2 puffs IH BID 08/15/14 [History Confirmed 09/08/22] Liothyronine Sodium 5 mcg PO DAILY 05/26/14 [History Confirmed 09/08/22] Metformin HCl 500 mg [Glucophage 500 MG] 500 mg PO BIDWMEALS 05/26/14 [History Confirmed 09/08/22] Tamsulosin HCl 0.4 mg [Flomax 0.4 MG] 0.8 mg PO HS 06/08/15 [History Confirmed 09/08/22] Albuterol Sulfate [Albuterol Sulfate Hfa] 2 puffs IH Q4HPRN PRN 03/06/19 [History Confirmed 09/08/22] Fluticasone Propionate [Flonase NASAL] 2 spray IH DAILY 03/06/19 [History Confirmed 09/08/22] Interferon Beta-1A/Albumin [Rebif Rebidose 22 Mcg/0.5 ml] 0.5 ml SQ UD 03/06/19 [History Confirmed 09/08/22] Ipratropium [place] Hfa [Atrovent HFA MDI] 2 puff IH Q4HPRN PRN 03/06/19 [History Confirmed 09/08/22] Levothyroxine Sodium 112 mcg PO DAILY 03/06/19 [History Confirmed 09/08/22] Montelukast Sodium 10 mg PO DAILY 03/06/19 [History Confirmed 09/08/22] predniSONE [Prednisone] 20 mg PO DAILY 03/06/19 [History Confirmed 09/08/22] Alendronate Sodium 70 mg [Fosamax 70 MG] 1 each PO WEEKLY 03/05/22 [History Confirmed 09/08/22] Ergocalciferol (Vitamin D2) [Vitamin D2] 1 each PO WEEKLY 03/05/22 [History Confirmed 09/08/22] Gabapentin [Neurontin ] 300 mg PO LUNCH 03/05/22 [History Confirmed 09/08/22] Hydrocodone/Acetaminophen [Hydrocodone-Acetamin 7.5-325] 1 each PO Q4-6HPRN PRN 03/05/22 [History Confirmed 09/08/22] Allergies/Adverse Reactions: Allergies Allergy/AdvReac Type Severity Reaction Status Date / Time amoxicillin trihydrate Allergy Severe Verified 09/08/22 13:27 [From Augmentin] cefaclor [From Ceclor] Allergy Severe syncope Verified 09/08/22 13:27 levofloxacin [From Levaquin] Allergy Severe syncope Verified 09/08/22 13:27 potassium clavulanate Allergy Severe Verified 09/08/22 13:27 [From Augmentin] Cephalosporins Allergy Mild Verified 09/08/22 13:27 doxycycline Allergy Mild Verified 09/08/22 13:27 sertraline HCl [From Zoloft] Allergy Mild Verified 09/08/22 13:27 clindamycin Allergy Verified 09/08/22 13:27 sulfamethoxazole Allergy Verified 09/08/22 13:27 [From Bactrim] trimethoprim [From Bactrim] Allergy Verified 09/08/22 13:27 - Past Medical History Past Medical History: Yes Neurological History: Other ENT History: Other Cardiac History: Arrhythmia CARDIAC HISTORY: Other Respiratory History: Asthma, COPD Endocrine Medical History: Diabetes Type II, Other Musculoskelatal History: Osteoarthritis, Osteoporosis GI Medical History: No Pertinent History History: Other Pyscho-Social History: Depression Reproductive Disorders: No Pertinent History Comment: MULTIPLE SCLEROSIS, SMOKER, TACHYCARDIA, - Female History Are you now?: No - Past Surgical History Past Surgical History: Yes Neuro Surgical History: No Pertinent History Cardiac History: No Pertinent History Respiratory Surgery: No Pertinent History GI Surgical History: No Pertinent History Genitourinary Surgical Hx: No Pertinent History Musculskeletal Surgical Hx: No Pertinent History, Orthopedic Surgery Female Surgical History: Hysterectomy Other Surgical History: pt had thyroidectomy also had surgery on stomach where she gave her self shots for ms area had a nodular area that needed removed,MRSA on stomach I&D. right hip sx - Social History Smoking Status: Current every day smoker How long have you smoked: 50 Exposure to second hand smoke: No Alcohol: None Drug Use: none - Physical Exam Vital Signs: Vital Signs - 24 hr Temp Pulse Resp BP Pulse Ox 09/15/22 08:44 110/70 09/15/22 08:00 98.0 F 101 H 16 79/47 94 L 09/15/22 05:19 80 18 94 L 09/15/22 02:41 85 18 95 09/15/22 02:21 97.4 F 73 20 126/66 94 L 09/15/22 01:00 82 18 96 09/15/22 00:19 95 09/15/22 00:10 89 18 109/70 94 L 09/14/22 23:43 84 18 102/74 94 L 09/14/22 22:50 94 H 18 90/69 95 09/14/22 21:29 103 H 20 95 09/14/22 21:03 97.2 F 89 18 91/72 95 General Appearance: no apparent distress, alert, other (sitting in bed eating breakfast, well-appearing) Neurologic Exam: oriented x 3, cooperative Eye Exam: eyes nml inspection Ears, Nose, Throat Exam: moist mucous membranes Neck Exam: normal inspection Respiratory Exam: diminished breath sounds (good air exchange), wheezing (bilat LE), No crackles/rales, No rhonchi Cardiovascular Exam: regular rate/rhythm, normal heart sounds, No murmur Gastrointestinal/Abdomen Exam: soft, normal bowel sounds, tenderness (mild, RUQ), No distention, No mass, No guarding, No rebound Back Exam: normal inspection, No rash Extremity Exam: normal inspection, No swelling, No tenderness Skin Exam: normal color, warm, dry, No rash Results - Labs Lab/Micro Results: Lab Results-Last 24 Hours 09/14/22 09/14/22 09/14/22 Range/Units 21:35 21:35 21:55 WBC 7.5 (4.0-10.5) x10^3/uL RBC 4.82 (4.1-5.4) x10^6/uL Hgb 13.3 (12.0-16.0) g/dL Hct 42.0 (35-47) % MCV 87.1 (78-100) fL MCH 27.6 (26-32) pg MCHC 31.7 L (32-36) g/dL RDW 15.7 H (11.5-14.0) % Plt Count 198 (150-450) x10^3/uL MPV 10.7 (7.5-11.0) fL Gran % 41.5 (36.0-66.0) % Immature Gran % (Auto) 0.4 (0.00-0.4) % Nucleat RBC Rel Count 0.0 (0.00-0.1) % Eos # (Auto) 0.28 (0-0.5) x10^3/uL Immature Gran # (Auto) 0.03 (0.00-0.03) x10^3u/L Absolute Lymphs (auto) 3.58 (1.0-4.6) x10^3/uL Absolute Monos (auto) 0.46 (0.0-1.3) x10^3/uL Absolute Nucleated RBC 0.00 (0.00-0.01) x10^3u/L Lymphocytes % 47.6 H (24.0-44.0) % Monocytes % 6.1 (0.0-12.0) % Eosinophils % 3.7 (0.00-5.0) % Basophils % 0.7 (0.0-0.4) % Absolute Granulocytes 3.12 (1.4-6.9) x10^3/uL Basophils # 0.05 (0-0.4) x10^3/uL Sodium (137-145) mmol/L Potassium (3.5-5.1) mmol/L Chloride (98-107) mmol/L Carbon Dioxide (22-30) mmol/L Anion Gap (5-15) MEQ/L BUN (7-17) mg/dL Creatinine (0.52-1.04) mg/dL Estimated GFR ML/MIN Glucose (74-106) mg/dL Lactic Acid (0.4-2.0) Calcium (8.4-10.2) mg/dL Magnesium (1.6-2.3) mg/dL Total Bilirubin (0.2-1.3) mg/dL AST (14-36) U/L ALT (0-35) U/L Alkaline Phosphatase (38-126) U/L Troponin I (0.000-0.034) ng/mL NT-Pro-B Natriuret Pep (0-900) pg/mL Serum Total Protein (6.3-8.2) g/dL Albumin (3.5-5.0) g/dL Procalcitonin (0.030-0.080) ng/mL Influenza Type A Ag NEGATIVE (NEGATIVE) Influenza Type B Ag NEGATIVE (NEGATIVE) RSV (PCR) NEGATIVE (Negative) SARS-CoV-2 (PCR) NEGATIVE (NEGATIVE) Group A Strep Antibody NOT DETECTED (NEGATIVE) 09/14/22 09/14/22 09/14/22 Range/Units 21:55 21:55 21:55 WBC (4.0-10.5) x10^3/uL RBC (4.1-5.4) x10^6/uL Hgb (12.0-16.0) g/dL Hct (35-47) % MCV (78-100) fL MCH (26-32) pg MCHC (32-36) g/dL RDW (11.5-14.0) % Plt Count (150-450) x10^3/uL MPV (7.5-11.0) fL Gran % (36.0-66.0) % Immature Gran % (Auto) (0.00-0.4) % Nucleat RBC Rel Count (0.00-0.1) % Eos # (Auto) (0-0.5) x10^3/uL Immature Gran # (Auto) (0.00-0.03) x10^3u/L Absolute Lymphs (auto) (1.0-4.6) x10^3/uL Absolute Monos (auto) (0.0-1.3) x10^3/uL Absolute Nucleated RBC (0.00-0.01) x10^3u/L Lymphocytes % (24.0-44.0) % Monocytes % (0.0-12.0) % Eosinophils % (0.00-5.0) % Basophils % (0.0-0.4) % Absolute Granulocytes (1.4-6.9) x10^3/uL Basophils # (0-0.4) x10^3/uL Sodium 138 (137-145) mmol/L Potassium 3.4 L (3.5-5.1) mmol/L Chloride 105 (98-107) mmol/L Carbon Dioxide 22 (22-30) mmol/L Anion Gap 13.9 (5-15) MEQ/L BUN 12 (7-17) mg/dL Creatinine 1.10 H (0.52-1.04) mg/dL Estimated GFR 53.0 ML/MIN Glucose 132 H (74-106) mg/dL Lactic Acid (0.4-2.0) Calcium 10.1 (8.4-10.2) mg/dL Magnesium 1.6 (1.6-2.3) mg/dL Total Bilirubin 0.30 (0.2-1.3) mg/dL AST 45 H (14-36) U/L ALT 24 (0-35) U/L Alkaline Phosphatase 87 (38-126) U/L Troponin I < 0.012 (0.000-0.034) ng/mL NT-Pro-B Natriuret Pep 69.3 (0-900) pg/mL Serum Total Protein 8.1 (6.3-8.2) g/dL Albumin 4.6 (3.5-5.0) g/dL Procalcitonin 0.085 H (0.030-0.080) ng/mL Influenza Type A Ag (NEGATIVE) Influenza Type B Ag (NEGATIVE) RSV (PCR) (Negative) SARS-CoV-2 (PCR) (NEGATIVE) Group A Strep Antibody (NEGATIVE) 09/14/22 09/15/22 09/15/22 Range/Units 22:55 02:20 04:20 WBC (4.0-10.5) x10^3/uL RBC (4.1-5.4) x10^6/uL Hgb (12.0-16.0) g/dL Hct (35-47) % MCV (78-100) fL MCH (26-32) pg MCHC (32-36) g/dL RDW (11.5-14.0) % Plt Count (150-450) x10^3/uL MPV (7.5-11.0) fL Gran % (36.0-66.0) % Immature Gran % (Auto) (0.00-0.4) % Nucleat RBC Rel Count (0.00-0.1) % Eos # (Auto) (0-0.5) x10^3/uL Immature Gran # (Auto) (0.00-0.03) x10^3u/L Absolute Lymphs (auto) (1.0-4.6) x10^3/uL Absolute Monos (auto) (0.0-1.3) x10^3/uL Absolute Nucleated RBC (0.00-0.01) x10^3u/L Lymphocytes % (24.0-44.0) % Monocytes % (0.0-12.0) % Eosinophils % (0.00-5.0) % Basophils % (0.0-0.4) % Absolute Granulocytes (1.4-6.9) x10^3/uL Basophils # (0-0.4) x10^3/uL Sodium (137-145) mmol/L Potassium (3.5-5.1) mmol/L Chloride (98-107) mmol/L Carbon Dioxide (22-30) mmol/L Anion Gap (5-15) MEQ/L BUN (7-17) mg/dL Creatinine (0.52-1.04) mg/dL Estimated GFR ML/MIN Glucose (74-106) mg/dL Lactic Acid 4.2 H (0.4-2.0) Calcium (8.4-10.2) mg/dL Magnesium (1.6-2.3) mg/dL Total Bilirubin (0.2-1.3) mg/dL AST (14-36) U/L ALT (0-35) U/L Alkaline Phosphatase (38-126) U/L Troponin I < 0.012 < 0.012 (0.000-0.034) ng/mL NT-Pro-B Natriuret Pep (0-900) pg/mL Serum Total Protein (6.3-8.2) g/dL Albumin (3.5-5.0) g/dL Procalcitonin (0.030-0.080) ng/mL Influenza Type A Ag (NEGATIVE) Influenza Type B Ag (NEGATIVE) RSV (PCR) (Negative) SARS-CoV-2 (PCR) (NEGATIVE) Group A Strep Antibody (NEGATIVE) 09/15/22 09/15/22 09/15/22 Range/Units 04:20 04:20 05:32 WBC 3.3 L (4.0-10.5) x10^3/uL RBC 4.11 (4.1-5.4) x10^6/uL Hgb 11.1 L (12.0-16.0) g/dL Hct 36.2 (35-47) % MCV 88.1 (78-100) fL MCH 27.0 (26-32) pg MCHC 30.7 L (32-36) g/dL RDW 16.1 H (11.5-14.0) % Plt Count 162 (150-450) x10^3/uL MPV 10.5 (7.5-11.0) fL Gran % 73.6 H (36.0-66.0) % Immature Gran % (Auto) 0.6 H (0.00-0.4) % Nucleat RBC Rel Count 0.0 (0.00-0.1) % Eos # (Auto) 0.01 (0-0.5) x10^3/uL Immature Gran # (Auto) 0.02 (0.00-0.03) x10^3u/L Absolute Lymphs (auto) 0.78 L (1.0-4.6) x10^3/uL Absolute Monos (auto) 0.05 (0.0-1.3) x10^3/uL Absolute Nucleated RBC 0.00 (0.00-0.01) x10^3u/L Lymphocytes % 23.7 L (24.0-44.0) % Monocytes % 1.5 (0.0-12.0) % Eosinophils % 0.3 (0.00-5.0) % Basophils % 0.3 (0.0-0.4) % Absolute Granulocytes 2.42 (1.4-6.9) x10^3/uL Basophils # 0.01 (0-0.4) x10^3/uL Sodium 139 (137-145) mmol/L Potassium 4.0 (3.5-5.1) mmol/L Chloride 111 H (98-107) mmol/L Carbon Dioxide 18 L (22-30) mmol/L Anion Gap 14.9 (5-15) MEQ/L BUN 12 (7-17) mg/dL Creatinine 1.02 (0.52-1.04) mg/dL Estimated GFR 57.8 ML/MIN Glucose 261 H (74-106) mg/dL Lactic Acid 5.2 H (0.4-2.0) Calcium 8.8 (8.4-10.2) mg/dL Magnesium (1.6-2.3) mg/dL Total Bilirubin 0.10 L (0.2-1.3) mg/dL AST 31 (14-36) U/L ALT 20 (0-35) U/L Alkaline Phosphatase 79 (38-126) U/L Troponin I (0.000-0.034) ng/mL NT-Pro-B Natriuret Pep (0-900) pg/mL Serum Total Protein 6.6 (6.3-8.2) g/dL Albumin 3.7 (3.5-5.0) g/dL Procalcitonin (0.030-0.080) ng/mL Influenza Type A Ag (NEGATIVE) Influenza Type B Ag (NEGATIVE) RSV (PCR) (Negative) SARS-CoV-2 (PCR) (NEGATIVE) Group A Strep Antibody (NEGATIVE) - Radiology Impressions Radiology Exams & Impressions: Radiology Procedures Category Date Time Status CHEST 1 VIEW (PORTABLE) Stat Exams 09/14/22 21:16 Taken - Other Procedures and Tests Respiratory Therapy 09/14/22 21:39 Respiratory Therapy Assessment DAILY 09/15/22 01:58 Oxygen Nasal Cannula 2 lpm Assessment/Plan (1) Pneumonia Current Visit: Yes Status: Acute Qualifiers: Pneumonia type: due to unspecified organism Laterality: bilateral Lung location: lower lobe of lung Qualified Code(s): J18.9 - Pneumonia, unspecified organism Assessment & Plan: On azactam and zithromax. She is feeling much better. On room air. afebrile. Expect her to take several days of treatment before being released. Code(s): J18.9 - PNEUMONIA, UNSPECIFIED ORGANISM (2) Severe sepsis Current Visit: Yes Status: Acute Assessment & Plan: Her lactic acid is actually higher this morning, so will give a bolus or two of fluids. Code(s): A41.9 - SEPSIS, UNSPECIFIED ORGANISM; R65.20 - SEVERE SEPSIS WITHOUT SEPTIC SHOCK (3) Chronic obstructive lung disease Current Visit: Yes Status: Chronic Code(s): J44.9 - CHRONIC OBSTRUCTIVE PULMONARY DISEASE, UNSPECIFIED (4) Smoking Current Visit: No Status: Acute Code(s): F17.200 - NICOTINE DEPENDENCE, UNSPECIFIED, UNCOMPLICATED (5) Hypotension Current Visit: No Status: Resolved Qualifiers: Hypotension type: idiopathic hypotension Qualified Code(s): I95.0 - Idiopathic hypotension Assessment & Plan: could certainly be related to sepsis, but she does have some low blood pressures at baseline. This is being rechecked manually. Code(s): I95.9 - HYPOTENSION, UNSPECIFIED
[2022-09-15] MEDS ORDERED: Sodium Chloride 0.9% 1000 ML 1,000 ML IV STA (09:05)
[2022-09-15] MEDS: PROTONIX 40 MG IV IV SCH (09:16)
[2022-09-15] MEDS ORDERED: NON-FORMULARY ITEM (Budesonide/Formoterol Fumarate [Symbicort 160-4.5 Mcg Inhaler] 10.2 GM IH SCH (10:00)
[2022-09-15] MEDS ORDERED: ESTROGENS CONJUGATED 0.3 MG PO SCH (10:00)
[2022-09-15] MEDS ORDERED: NON-FORMULARY ITEM (Liothyronine Sodium [Liothyronine Sodium] 5 MCG Tablet) PO SCH (10:00)
[2022-09-15] MEDS ORDERED: SYNTHROID 150 MCG PO SCH (10:00)
[2022-09-15] MEDS ORDERED: NON-FORMULARY ITEM (Gabapentin [Gabapentin] 800 MG Tablet) PO SCH (10:00)
[2022-09-15] MEDS ORDERED: NON-FORMULARY ITEM (Fluoxetine Hcl [Prozac] 40 MG Capsule) PO SCH (10:00)
[2022-09-15] MEDS ORDERED: MEDICATION INTERVENTION MC SCH ×2 (10:15)
[2022-09-15] MEDS: Neurontin PO SCH ×2 (10:48→21:00)
[2022-09-15] MEDS: Singulair 10 MG PO SCH (10:48)
[2022-09-15] MEDS: Prozac 20 MG PO SCH (10:49)
[2022-09-15] MEDS: Flonase NASAL NS SCH (10:52)
[2022-09-15] MEDS: SYNTHROID 112 MCG PO SCH (10:52)
[2022-09-15] MEDS: MAG-OX 400 PO SCH (10:52)
[2022-09-15] MEDS: Ditropan 5 MG PO SCH ×2 (10:54→20:59)
[2022-09-15] MEDS: NEURONTIN PO SCH (12:39)
[2022-09-15] MEDS ORDERED: Lactated Ringers 1,000 ML IV ONE (13:25)
[2022-09-15] MEDS: NORCO 7.5/325 MG TAB PO PRN ×2 (15:58→20:59)
[2022-09-15 16:26] LABS: BLOOD UREA NITROGEN 10 mg/dL (7-17); CHLORIDE 115 mmol/L (98-107); Calcium 8.6 mg/dL (8.4-10.2); Creatinine 1 0.78 mg/dL (0.52-1.04); EST GLOMERULAR FILTRATION RATE > 60.0 ML/MIN; Glucose 195 mg/dL (74-106); Potassium 3.7 mmol/L (3.5-5.1); SODIUM 142 mmol/L (137-145)
[2022-09-15 16:34] LABS: Carbon Dioxide 15 mmol/L (22-30)
[2022-09-15 17:45] LABS: A-aADO2 -47; ABG POTASSIUM 3.4 (3.5-5.1); ARTERIAL BLD GAS O2 SATURATION 99.5 % (95-100); ARTERIAL BLOOD GAS FIO2 21 %; ARTERIAL BLOOD GAS PCO2 22 mmHg (35-45); ARTERIAL BLOOD GAS PO2 169 mmHg (75-100); ARTERIAL BLOOD GAS pH 7.41 (7.35-7.45); CARBOXYHEMOGLOBIN 0.7 % THgb (0.0-6.9); HCO3- 13.9 (22-28); HGB O2 SAT 97.6 g/dF (94-100); Methhemoglobin 1.3 % (1.4-1.5)
[2022-09-15 17:46] LABS: ABG SITE RIGHT RADIAL; ALLEN TEST OK? YES
[2022-09-15] MEDS ORDERED: Advair Hfa 115/21 Common canister IH SCH (19:00)
[2022-09-15] MEDS: NICODERM CQ 14 MG TOP SCH (19:48)
[2022-09-15] MEDS: BENADRYL 25 MG CAPSULE PO SCH (20:59)
[2022-09-15] MEDS: ZOCOR 20MG PO SCH (21:00)
[2022-09-15] MEDS: Docusate Sodium 100 MG PO SCH (21:00)
[2022-09-15] MEDS: Flomax 0.4 MG PO SCH (21:00)
[2022-09-15 21:30] LABS: Appearance CLOUDY (CLEAR); Bilirubin NEGATIVE (NEGATIVE); Glucose 500 mg/dL (NEGATIVE)
[2022-09-15 21:31] LABS: Dipstick done @ ? MAIN LAB; Ketones TRACE (NEGATIVE); Nitrite NEGATIVE (NEGATIVE); Protein,Urine Dip NEGATIVE (Negative); RBC TRACE-INTACT Ery/ul (0-5); Specific Gravity 1.015 (1.005-1.025); Urobilinogen 0.2 mg/dL (0-1)
[2022-09-15 21:34] LABS: Bacteria FEW /HPF (NEGATIVE); Epithelial Cells FEW /HPF (FEW); WBC 51-100 /HPF (0-5)
[2022-09-15 21:38] LABS: Urine Cultured Indicated? YES
[2022-09-15] MEDS: Zithromax 500 MG/ 250 ML NaCl Premix 500 MG/250 ML IVPB IV SCH (22:21)
[2022-09-16] MEDS: Sodium Chloride 0.9% 1000 ML 1,000 ML IV SCH ×3 (00:13→17:39)
[2022-09-16] MEDS: solu-MEDROL 60 MG, Sterile H2O 10 ml 2 ML IV SCH ×8 (00:13→17:39)
[2022-09-16] MEDS: DUONEB 0.5-3 MG/3 ml Neb IH SCH ×6 (03:00→23:24)
[2022-09-16] MEDS: AZACTAM 1 GM*** 2 GM in Sodium Chloride 0.9% 100 ML IV SCH ×3 (05:22→22:12)
[2022-09-16] MEDS: Advair Hfa 115/21 Common canister IH SCH ×2 (05:25→20:25)
[2022-09-16 07:23] LABS: Absolute Neutrophil Ct (ANC) 5.08 x10^3/uL (1.4-6.9); Basophil (Absolute #) 0.01 x10^3/uL (0-0.4); Eosinophil (Absolute #) 0 x10^3/uL (0-0.5); Hematocrit 30.9 % (35-47); Hemoglobin 9.7 g/dL (12.0-16.0); Lymphocyte (Absolute #) 0.77 x10^3/uL (1.0-4.6); Lymphocytes % 12.3 % (24.0-44.0); Mean Corpuscular Hemoglobin 27.6 pg (26-32); Mean Corpuscular Hgb Concent. 31.4 g/dL (32-36); Mean Platelet Volume 10.3 fL (7.5-11.0); Monocyte (Absolute #) 0.34 x10^3/uL (0.0-1.3); Monocytes % 5.4 % (0.0-12.0); Neutrophil % 80.8 % (36.0-66.0); Platelet Count 169 x10^3/uL (150-450); Red Blood Count 3.51 x10^6/uL (4.1-5.4); Red Cell Distribution Width 16.6 % (11.5-14.0); White Blood Count 6.3 x10^3/uL (4.0-10.5)
[2022-09-16 07:35] LABS: ANION GAP 11.9 MEQ/L (5-15); BLOOD UREA NITROGEN 11 mg/dL (7-17); CHLORIDE 116 mmol/L (98-107); Calcium 8.4 mg/dL (8.4-10.2); Carbon Dioxide 18 mmol/L (22-30); Creatinine 1 0.68 mg/dL (0.52-1.04); EST GLOMERULAR FILTRATION RATE > 60.0 ML/MIN; Glucose 150 mg/dL (74-106); Potassium 3.7 mmol/L (3.5-5.1); SODIUM 142 mmol/L (137-145)
[2022-09-16] MEDS ORDERED: Ativan 1 MG PO PRN ×2 (08:53)
[2022-09-16] MEDS: Neurontin PO SCH ×2 (09:53→22:05)
[2022-09-16] MEDS: PROTONIX 40 MG IV IV SCH (09:53)
[2022-09-16] MEDS: Prozac 20 MG PO SCH (09:54)
[2022-09-16] MEDS: MAG-OX 400 PO SCH (09:54)
[2022-09-16] MEDS: SYNTHROID 112 MCG PO SCH (09:55)
[2022-09-16] MEDS: Flonase NASAL NS SCH (09:55)
[2022-09-16] MEDS: Ditropan 5 MG PO SCH ×2 (09:55→22:05)
[2022-09-16] MEDS: Singulair 10 MG PO SCH (09:55)
[2022-09-16] MEDS: NEURONTIN PO SCH (11:34)
[2022-09-16] MEDS: TYLENOL 325 MG PO PRN (11:40)
[2022-09-16] MEDS ORDERED: solu-MEDROL ONE (17:36)
[2022-09-16] MEDS: NORCO 7.5/325 MG TAB PO PRN (17:39)
--- NOTE | 2022-09-16 18:14 | PCM.NOTE ---
Date and Time: 09/16/221810 Subjective Assessment: Continues to feel better. Hard to sleep though - hasn't slept since she's been here - Review of Systems Constitutional: No Fever Respiratory: Cough, Short Of Breath Objective Exam General Appearance: no apparent distress, alert Neurologic Exam: oriented x 3 Skin Exam: normal color, warm, dry, No rash Eye Exam: eyes nml inspection Ears, Nose, Throat Exam: moist mucous membranes Respiratory Exam: diminished breath sounds (good air exchange), accessory muscle use (throughout), crackles/rales (rales RLL), No rhonchi Cardiovascular Exam: regular rate/rhythm, normal heart sounds, No murmur Gastrointestinal/Abdomen Exam: soft, normal bowel sounds, No tenderness, No distention, No mass, No guarding, No rebound Extremity Exam: normal inspection, No pedal edema, No swelling OBJECTIVE DATA Vital Signs: Vital Signs - 24 hr Temp Pulse Resp BP Pulse Ox 09/16/22 16:00 97.9 F 105 H 16 126/75 95 09/16/22 14:55 105 H 14 97 09/16/22 11:26 98.1 F 105 H 16 136/63 94 L 09/16/22 10:59 100 H 16 97 09/16/22 07:52 97.9 F 105 H 16 115/71 97 09/16/22 05:29 93 H 18 96 09/16/22 03:35 98.6 F 106 H 16 129/73 93 L 09/15/22 23:07 109 H 20 97 09/15/22 23:04 98.2 F 108 H 18 112/64 92 L 09/15/22 19:03 98.6 F 109 H 18 131/67 97 09/15/22 18:48 109 H 18 96 Pain Assessment - Last Documented Pain Intensity 5 Pain Scale Used 0-10 Pain Scale Intake and Output: Intake & Output 09/14/22 09/15/22 09/16/22 09/17/22 11:59 11:59 11:59 11:59 Intake Total 800 4926 1160 Output Total 400 2050 1400 Balance 400 2876 -240 Weight 73.7 kg 77.2 kg Lab Results: Lab Results-Last 24 Hours 09/15/22 09/16/22 09/16/22 Range/Units Unknown 06:16 07:15 WBC 6.3 (4.0-10.5) x10^3/uL RBC 3.51 L (4.1-5.4) x10^6/uL Hgb 9.7 L (12.0-16.0) g/dL Hct 30.9 L (35-47) % MCV 88.0 (78-100) fL MCH 27.6 (26-32) pg MCHC 31.4 L (32-36) g/dL RDW 16.6 H (11.5-14.0) % Plt Count 169 (150-450) x10^3/uL MPV 10.3 (7.5-11.0) fL Gran % 80.8 H (36.0-66.0) % Immature Gran % (Auto) 1.3 H (0.00-0.4) % Nucleat RBC Rel Count 0.0 (0.00-0.1) % Eos # (Auto) 0 (0-0.5) x10^3/uL Immature Gran # (Auto) 0.08 H (0.00-0.03) x10^3u/L Absolute Lymphs (auto) 0.77 L (1.0-4.6) x10^3/uL Absolute Monos (auto) 0.34 (0.0-1.3) x10^3/uL Absolute Nucleated RBC 0.00 (0.00-0.01) x10^3u/L Lymphocytes % 12.3 L (24.0-44.0) % Monocytes % 5.4 (0.0-12.0) % Eosinophils % 0.0 (0.00-5.0) % Basophils % 0.2 (0.0-0.4) % Absolute Granulocytes 5.08 (1.4-6.9) x10^3/uL Basophils # 0.01 (0-0.4) x10^3/uL Sodium (137-145) mmol/L Potassium (3.5-5.1) mmol/L Chloride (98-107) mmol/L Carbon Dioxide (22-30) mmol/L Anion Gap (5-15) MEQ/L BUN (7-17) mg/dL Creatinine (0.52-1.04) mg/dL Estimated GFR ML/MIN Glucose (74-106) mg/dL Lactic Acid 3.6 H (0.4-2.0) Calcium (8.4-10.2) mg/dL Urinalys Dipstick Clnc MAIN LAB Urine Color YELLOW (YELLOW) Urine Appearance CLOUDY A (CLEAR) Urine pH 6.0 (5-6) Ur Specific [place] 1.015 (1.005-1.025) POC Urine Protein Conf NEGATIVE (Negative) Urine Ketones TRACE A (NEGATIVE) Urine Nitrite NEGATIVE (NEGATIVE) Urine Bilirubin NEGATIVE (NEGATIVE) Urine Urobilinogen 0.2 (0-1) mg/dL Urine Leukocytes SMALL A (NEGATIVE) Urine WBC (Auto) 51-100 A (0-5) /HPF Urine RBC (Auto) NONE (0-2) /HPF U Epithel Cells (Auto) FEW (FEW) /HPF Urine Bacteria (Auto) FEW A (NEGATIVE) /HPF Urine RBC TRACE-INTACT A (0-5) Wili/ul Ur Culture Indicated? YES Urine Glucose 500 A (NEGATIVE) mg/dL 09/16/22 Range/Units 07:15 WBC (4.0-10.5) x10^3/uL RBC (4.1-5.4) x10^6/uL Hgb (12.0-16.0) g/dL Hct (35-47) % MCV (78-100) fL MCH (26-32) pg MCHC (32-36) g/dL RDW (11.5-14.0) % Plt Count (150-450) x10^3/uL MPV (7.5-11.0) fL Gran % (36.0-66.0) % Immature Gran % (Auto) (0.00-0.4) % Nucleat RBC Rel Count (0.00-0.1) % Eos # (Auto) (0-0.5) x10^3/uL Immature Gran # (Auto) (0.00-0.03) x10^3u/L Absolute Lymphs (auto) (1.0-4.6) x10^3/uL Absolute Monos (auto) (0.0-1.3) x10^3/uL Absolute Nucleated RBC (0.00-0.01) x10^3u/L Lymphocytes % (24.0-44.0) % Monocytes % (0.0-12.0) % Eosinophils % (0.00-5.0) % Basophils % (0.0-0.4) % Absolute Granulocytes (1.4-6.9) x10^3/uL Basophils # (0-0.4) x10^3/uL Sodium 142 (137-145) mmol/L Potassium 3.7 (3.5-5.1) mmol/L Chloride 116 H (98-107) mmol/L Carbon Dioxide 18 L (22-30) mmol/L Anion Gap 11.9 (5-15) MEQ/L BUN 11 (7-17) mg/dL Creatinine 0.68 (0.52-1.04) mg/dL Estimated GFR > 60.0 ML/MIN Glucose 150 H (74-106) mg/dL Lactic Acid (0.4-2.0) Calcium 8.4 (8.4-10.2) mg/dL Urinalys Dipstick Clnc Urine Color (YELLOW) Urine Appearance (CLEAR) Urine pH (5-6) Ur Specific [place] (1.005-1.025) POC Urine Protein Conf (Negative) Urine Ketones (NEGATIVE) Urine Nitrite (NEGATIVE) Urine Bilirubin (NEGATIVE) Urine Urobilinogen (0-1) mg/dL Urine Leukocytes (NEGATIVE) Urine WBC (Auto) (0-5) /HPF Urine RBC (Auto) (0-2) /HPF U Epithel Cells (Auto) (FEW) /HPF Urine Bacteria (Auto) (NEGATIVE) /HPF Urine RBC (0-5) Wili/ul Ur Culture Indicated? Urine Glucose (NEGATIVE) mg/dL Radiology Exams: Radiology Procedures Category Date Time Status CHEST 1 VIEW (PORTABLE) Stat Exams 09/14/22 21:16 Completed Multi-Disciplinary Progress Notes: Multi-Disciplinary Progress Notes 09/16/22 12:29 Case Management Note by Aziza Donald S/W PATIENT SHE CONTINUES TO DENY ANY NEW NEEDS AT TIME OF DC. SHE PLANS TO RETURN HOME TO HER PLF AT TIME OF DC. Initialized on 09/16/22 12:29 - END OF NOTE Assessment/Plan (1) Pneumonia Current Visit: Yes Status: Acute Qualifiers: Pneumonia type: due to unspecified organism Laterality: bilateral Lung location: lower lobe of lung Qualified Code(s): J18.9 - Pneumonia, unspecified organism Assessment & Plan: on azactam and zithromax, feeling much better. May be able to go home on antibiotics and steroid taper in a day or two. Code(s): J18.9 - PNEUMONIA, UNSPECIFIED ORGANISM (2) Chronic obstructive lung disease Current Visit: Yes Status: Chronic Code(s): J44.9 - CHRONIC OBSTRUCTIVE PULMONARY DISEASE, UNSPECIFIED (3) Smoking Current Visit: No Status: Acute Code(s): F17.200 - NICOTINE DEPENDENCE, UNSPECIFIED, UNCOMPLICATED (4) Insomnia Current Visit: Yes Status: Acute Assessment & Plan: Added ativan prn here; may benefit from trazodone at home, but of course there is concern about interaction with her many other meds. Code(s): G47.00 - INSOMNIA, UNSPECIFIED (5) Multiple sclerosis Current Visit: Yes Status: Chronic Code(s): G35 - MULTIPLE SCLEROSIS
[2022-09-16] MEDS ORDERED: Advair Hfa 115/21 Mcg Inhaler IH ONE (18:18)
[2022-09-16] MEDS: NICODERM CQ 14 MG TOP SCH (22:03)
[2022-09-16] MEDS: Flomax 0.4 MG PO SCH (22:04)
[2022-09-16] MEDS: Docusate Sodium 100 MG PO SCH (22:05)
[2022-09-16] MEDS: BENADRYL 25 MG CAPSULE PO SCH (22:05)
[2022-09-16] MEDS: ZOCOR 20MG PO SCH (22:05)
[2022-09-16] MEDS: Zithromax 500 MG/ 250 ML NaCl Premix 500 MG/250 ML IVPB IV SCH (22:12)
[2022-09-17] MEDS ORDERED: solu-MEDROL ONE ×2 (00:06→05:37)
[2022-09-17] MEDS: solu-MEDROL 60 MG, Sterile H2O 10 ml 2 ML IV SCH ×4 (00:14→06:06)
[2022-09-17] MEDS: Sodium Chloride 0.9% 1000 ML 1,000 ML IV SCH (02:21)
[2022-09-17] MEDS: DUONEB 0.5-3 MG/3 ml Neb IH SCH ×3 (04:55→11:05)
[2022-09-17 05:38] LABS: Absolute Neutrophil Ct (ANC) 5.34 x10^3/uL (1.4-6.9); Basophil (Absolute #) 0.01 x10^3/uL (0-0.4); Eosinophil % 0.1 % (0.00-5.0); Eosinophil (Absolute #) 0.01 x10^3/uL (0-0.5); Hematocrit 31.4 % (35-47); Hemoglobin 9.8 g/dL (12.0-16.0); Lymphocyte (Absolute #) 0.93 x10^3/uL (1.0-4.6); Lymphocytes % 13.5 % (24.0-44.0); Mean Cell Volume 87.5 fL (78-100); Mean Corpuscular Hemoglobin 27.3 pg (26-32); Mean Corpuscular Hgb Concent. 31.2 g/dL (32-36); Mean Platelet Volume 10.3 fL (7.5-11.0); Monocyte (Absolute #) 0.38 x10^3/uL (0.0-1.3); Monocytes % 5.5 % (0.0-12.0); Neutrophil % 77.5 % (36.0-66.0); Platelet Count 189 x10^3/uL (150-450); Red Blood Count 3.59 x10^6/uL (4.1-5.4); Red Cell Distribution Width 16.9 % (11.5-14.0); White Blood Count 6.9 x10^3/uL (4.0-10.5)
[2022-09-17] MEDS: AZACTAM 1 GM*** 2 GM in Sodium Chloride 0.9% 100 ML IV SCH (06:06)
[2022-09-17 06:18] LABS: ANION GAP 14.2 MEQ/L (5-15); BLOOD UREA NITROGEN 12 mg/dL (7-17); CHLORIDE 114 mmol/L (98-107); Calcium 8.7 mg/dL (8.4-10.2); Carbon Dioxide 19 mmol/L (22-30); Creatinine 1 0.66 mg/dL (0.52-1.04); EST GLOMERULAR FILTRATION RATE > 60.0 ML/MIN; Glucose 133 mg/dL (74-106); Potassium 4.2 mmol/L (3.5-5.1); SODIUM 143 mmol/L (137-145)
[2022-09-17] MEDS: Advair Hfa 115/21 Common canister IH SCH (06:34)
[2022-09-17 08:03] VITALS: BP 134/76; O2SAT 97
--- NOTE | 2022-09-17 09:08 | PCM.DS ---
Discharge Summary Date of Admission: 09/15/22 01:57 Admitting Physician: DELIA ARNDT Primary Care Provider: SARA MONTELONGO Allergies Allergies amoxicillin trihydrate [From Augmentin] Allergy (Severe, Verified 09/08/22 13:27) cefaclor [From Ceclor] Allergy (Severe, Verified 09/08/22 13:27) syncope levofloxacin [From Levaquin] Allergy (Severe, Verified 09/08/22 13:27) syncope potassium clavulanate [From Augmentin] Allergy (Severe, Verified 09/08/22 13:27) Cephalosporins Allergy (Mild, Verified 09/08/22 13:27) doxycycline Allergy (Mild, Verified 09/08/22 13:27) sertraline HCl [From Zoloft] Allergy (Mild, Verified 09/08/22 13:27) clindamycin Allergy (Verified 09/08/22 13:27) sulfamethoxazole [From Bactrim] Allergy (Verified 09/08/22 13:27) trimethoprim [From Bactrim] Allergy (Verified 09/08/22 13:27) Hospital Summary - Hospital Course Hospital Course: patient of Dr Linder admitted with pneumonia and copd exacerbation. she is afebrile, normal sats on room air and normal white count on labs today. felt to be stable for discharge at this time. - Vitals & Intake/Output Vital Signs: Vital Signs Temperature 97.5 F 09/17/22 08:00 Pulse Rate 106 H 09/17/22 08:00 Respiratory Rate 18 09/17/22 08:00 Blood Pressure 134/76 09/17/22 08:00 O2 Sat by Pulse Oximetry 97 09/17/22 08:00 Intake & Output: Intake & Output 09/14/22 09/15/22 09/16/22 09/17/22 11:59 11:59 11:59 11:59 Intake Total 800 4926 1360 Output Total 400 2050 2000 Balance 400 1516 -640 Weight 73.7 kg 77.2 kg 77.8 kg - Lab Result Diagrams: 09/17/22 05:15 09/17/22 05:15 Lab Results-Last 24 Hrs: Lab Results-Last 24 Hours 09/17/22 09/17/22 09/17/22 Range/Units 05:15 05:15 05:25 WBC 6.9 (4.0-10.5) x10^3/uL RBC 3.59 L (4.1-5.4) x10^6/uL Hgb 9.8 L (12.0-16.0) g/dL Hct 31.4 L (35-47) % MCV 87.5 (78-100) fL MCH 27.3 (26-32) pg MCHC 31.2 L (32-36) g/dL RDW 16.9 H (11.5-14.0) % Plt Count 189 (150-450) x10^3/uL MPV 10.3 (7.5-11.0) fL Gran % 77.5 H (36.0-66.0) % Immature Gran % (Auto) 3.3 H (0.00-0.4) % Nucleat RBC Rel Count 0.0 (0.00-0.1) % Eos # (Auto) 0.01 (0-0.5) x10^3/uL Immature Gran # (Auto) 0.23 H (0.00-0.03) x10^3u/L Absolute Lymphs (auto) 0.93 L (1.0-4.6) x10^3/uL Absolute Monos (auto) 0.38 (0.0-1.3) x10^3/uL Absolute Nucleated RBC 0.00 (0.00-0.01) x10^3u/L Lymphocytes % 13.5 L (24.0-44.0) % Monocytes % 5.5 (0.0-12.0) % Eosinophils % 0.1 (0.00-5.0) % Basophils % 0.1 (0.0-0.4) % Absolute Granulocytes 5.34 (1.4-6.9) x10^3/uL Basophils # 0.01 (0-0.4) x10^3/uL Sodium 143 (137-145) mmol/L Potassium 4.2 (3.5-5.1) mmol/L Chloride 114 H (98-107) mmol/L Carbon Dioxide 19 L (22-30) mmol/L Anion Gap 14.2 (5-15) MEQ/L BUN 12 (7-17) mg/dL Creatinine 0.66 (0.52-1.04) mg/dL Estimated GFR > 60.0 ML/MIN Glucose 133 H (74-106) mg/dL Lactic Acid 3.5 H (0.4-2.0) Calcium 8.7 (8.4-10.2) mg/dL Micro Results-Entire Visit: Microbiology 09/15/22 Unknown Urine Culture - Preliminary Clean Catch Midstream GRAM POSITIVE ID AND SENSITIVITY PENDING 09/14/22 22:15 Blood Culture - Preliminary Blood NO GROWTH TO DATE 09/14/22 21:55 Blood Culture - Preliminary Blood NO GROWTH TO DATE - Procedures and Test Procedures and Tests throughout Hospitalization: Therapy Orders & Screens 09/14/22 21:39 Respiratory Therapy Assessment DAILY Comment: 09/15/22 01:58 Oxygen Nasal Cannula 2 lpm Comment: 09/15/22 02:55 Smoking Cessation Education ONCE Comment: Diagnosis: Severe sepsis, pneumonia Smoking Status: Current every day smoker How long have you smoked: 50 Have you smoked in the past 12 months: Yes Approximately how many cigarettes per day: 6 Do you dip or chew tobacco: No 09/16/22 04:07 Respiratory MDI UD Comment: Diagnosis: Severe sepsis, pneumonia Discharge Exam General Appearance: no apparent distress Neurologic Exam: alert, oriented x 3 Respiratory Exam: diminished breath sounds, wheezing, No accessory muscle use Cardiovascular Exam: regular rate/rhythm, normal heart sounds Gastrointestinal/Abdomen Exam: soft, No tenderness, No mass Final Diagnosis/Problem List - Final Discharge Diagnosis/Problem (1) Pneumonia Current Visit: Yes Status: Acute Assessment & Plan: chest xray was read as negative, exam today more consistent with copd exacerbation, will continue zithromax at home due to extensive allergy list Code(s): J18.9 - PNEUMONIA, UNSPECIFIED ORGANISM (2) Chronic obstructive lung disease Current Visit: Yes Status: Chronic Assessment & Plan: po prednisone ordered, patient has nebs/solution at home Code(s): J44.9 - CHRONIC OBSTRUCTIVE PULMONARY DISEASE, UNSPECIFIED (3) Multiple sclerosis Current Visit: Yes Status: Chronic Code(s): G35 - MULTIPLE SCLEROSIS - Discharge Disposition: Home, Self-Care Condition: Stable Prescriptions: New Hydroxyzine HCl 25 mg [Atarax 25 mg] 25 mg PO TID PRN #30 tablet Prednisone 20 mg [Deltasone 20 mg] 20 mg PO UD #18 tablet Azithromycin 250 mg [Zithromax 250 MG TABLET] 250 mg PO ZPACK #6 tablet Continue Docusate Sodium [Doc-Q-Lace] 100 mg PO HS Gabapentin 800 mg PO BID Fluoxetine HCl [Prozac] 80 mg PO DAILY Magnesium Oxide 400 mg [Mag-Ox 400] 800 mg PO DAILY Simvastatin 20Mg [Zocor 20Mg] 20 mg PO HS Estrogens, Conjugated [Premarin] 0.3 mg PO DAILY Oxybutynin Chloride 5 mg [Ditropan 5 MG] 5 mg PO BID Liothyronine Sodium 5 mcg PO DAILY Metformin HCl 500 mg [Glucophage 500 MG] 500 mg PO BIDWMEALS Budesonide/Formoterol Fumarate [Symbicort 160-4.5 Mcg Inhaler] 2 puffs IH BID Tamsulosin HCl 0.4 mg [Flomax 0.4 MG] 0.8 mg PO HS Interferon Beta-1A/Albumin [Rebif Rebidose 22 Mcg/0.5 ml] 0.5 ml SQ UD predniSONE [Prednisone] 20 mg PO DAILY Albuterol Sulfate [Albuterol Sulfate Hfa] 2 puffs IH Q4HPRN PRN PRN Reason: Shortness Of Breath/Wheezing Ipratropium [place] Hfa [Atrovent HFA MDI] 2 puff IH Q4HPRN PRN PRN Reason: Shortness Of Breath/Wheezing Fluticasone Propionate [Flonase NASAL] 2 spray IH DAILY Montelukast Sodium 10 mg PO DAILY Levothyroxine Sodium 112 mcg PO DAILY Gabapentin [Neurontin ] 300 mg PO LUNCH Alendronate Sodium 70 mg [Fosamax 70 MG] 1 each PO WEEKLY Hydrocodone/Acetaminophen [Hydrocodone-Acetamin 7.5-325] 1 each PO Q4-6HPRN PRN PRN Reason: Pain Ergocalciferol (Vitamin D2) [Vitamin D2] 1 each PO WEEKLY Follow up with: SARA MONTELONGO [Primary Care Provider] -
[2022-09-17] MEDS: Flonase NASAL NS SCH (10:43)
[2022-09-17] MEDS: PROTONIX 40 MG IV IV SCH (10:44)
[2022-09-17] MEDS: Prozac 20 MG PO SCH (10:45)
[2022-09-17] MEDS: Neurontin PO SCH (10:45)
[2022-09-17] MEDS: MAG-OX 400 PO SCH (10:46)
[2022-09-17] MEDS: Singulair 10 MG PO SCH (10:46)
[2022-09-17] MEDS: Ditropan 5 MG PO SCH (10:46)
[2022-09-17] MEDS: SYNTHROID 112 MCG PO SCH (10:47)
[2022-09-17 11:09] VITALS: PULSE 110
[2022-09-17] MEDS: TYLENOL 325 MG PO PRN (11:09)
== END 2022-09-17 11:17 | disposition home or self-care (01) ==
LOC: ED 20:58 → MED SURG 09-15 01:57
PROVIDERS: ADMIT General Practice; ATTEND Family Medicine
DX: J18.9 Pneumonia, unspecified organism (principal); J44.9 Chronic obstructive pulmonary disease, unspecified; G35 Multiple sclerosis; E11.9 Type 2 diabetes mellitus without complications; I10 Essential (primary) hypertension; E03.9 Hypothyroidism, unspecified; R00.0 Tachycardia, unspecified; A41.9 Sepsis, unspecified organism; R65.20 Severe sepsis without septic shock; I95.9 Hypotension, unspecified; G47.00 Insomnia, unspecified; Z79.899 Other long term (current) drug therapy; Z72.0 Tobacco use; Z20.828 Contact with and (suspected) exposure to other viral communicable diseases
CPT/HCPCS: 0241U; 36000; 36415; 36600; 71045; 80048; 80053; 81015; 82375; 82803; 83605; 83735; 83880; 84145; 84484; 85025; 87040; 87077; 87086; 87186; 87651; 93005; 93268; 94640; 94760; 96360; 96361; 96365; 96366; 96374; 99285; G0378; 96375; J0456; J2930; A9270-GY

== ENCOUNTER 2024-04-11 00:03 | Emergency (ER) | payer MEDICARE ==
--- NOTE | 2024-04-11 00:04 | ERPHSYRPT ---
- History of Present Illness Time Seen by Provider: 04/11/24 00:04 Source: patient, EMS Physician History: This is an obese 68-year-old white female patient of Dr. Aguila who presents with right jaw and right cheek pain that came on suddenly approximately 2330 last evening. The pain is sharp shooting and severe. She has never had anything like this before. Patient took a single [place] 7.5/325 mg. Patient called the paramedics to take her to the emergency department because she has no transportation. Patient states that the pain is letting up with the [place] pain pill. Patient has a history of asthma, COPD, diabetes, arrhythmia, depression, multiple sclerosis. Patient denies chest pain and she denies shortness of breath. Timing/Duration: abrupt onset Severity: moderate ENT Location: facial Prearrival Treatment: prescription meds (7.5/325 [place] x 1 tablet) Modifying Factors: Improves With: coughing Associated Symptoms: facial pain/swelling (Right side facial pain), jaw pain (Right-sided jaw pain) Allergies/Adverse Reactions: amoxicillin trihydrate [From Augmentin] Allergy (Severe, Verified 04/11/24 00:19) cefaclor [From Ceclor] Allergy (Severe, Verified 04/11/24 00:19) syncope levofloxacin [From Levaquin] Allergy (Severe, Verified 04/11/24 00:19) syncope potassium clavulanate [From Augmentin] Allergy (Severe, Verified 04/11/24 00:19) Cephalosporins Allergy (Mild, Verified 04/11/24 00:19) doxycycline Allergy (Mild, Verified 04/11/24 00:19) sertraline HCl [From Zoloft] Allergy (Mild, Verified 04/11/24 00:19) clindamycin Allergy (Unknown, Verified 04/11/24 00:19) sulfamethoxazole [From Bactrim] Allergy (Unknown, Verified 04/11/24 00:19) trimethoprim [From Bactrim] Allergy (Unknown, Verified 04/11/24 00:19) Home Medications: Docusate Sodium [Doc-Q-Lace] 100 mg PO HS 02/28/13 [History] Estrogens, Conjugated [Premarin] 0.3 mg PO DAILY 02/28/13 [History] Fluoxetine HCl [Prozac] 80 mg PO DAILY 02/28/13 [History] Gabapentin 800 mg PO BID 02/28/13 [History] Magnesium Oxide 400 mg [Mag-Ox 400] 800 mg PO DAILY 02/28/13 [History] Oxybutynin Chloride 5 mg [Ditropan 5 MG] 5 mg PO BID 02/28/13 [History] Simvastatin 20Mg [Zocor 20Mg] 20 mg PO HS 02/28/13 [History] Budesonide/Formoterol Fumarate [Symbicort 160-4.5 Mcg Inhaler] 2 puffs IH BID 05/26/14 [History] Liothyronine Sodium 5 mcg PO DAILY 05/26/14 [History] Metformin HCl 500 mg [Glucophage 500 MG] 500 mg PO BIDWMEALS 05/26/14 [History] Tamsulosin HCl 0.4 mg [Flomax 0.4 MG] 0.8 mg PO HS 06/08/15 [History] Albuterol Sulfate [Albuterol Sulfate Hfa] 2 puffs IH Q4HPRN PRN 03/06/19 [History] Fluticasone Propionate [Flonase NASAL] 2 spray IH DAILY 03/06/19 [History] Interferon Beta-1A/Albumin [Rebif Rebidose 22 Mcg/0.5 ml] 0.5 ml SQ UD 03/06/19 [History] Ipratropium [place] Hfa [Atrovent HFA MDI] 2 puff IH Q4HPRN PRN 03/06/19 [History] Levothyroxine Sodium 112 mcg PO DAILY 03/06/19 [History] Montelukast Sodium 10 mg PO DAILY 03/06/19 [History] predniSONE [Prednisone] 20 mg PO DAILY 03/06/19 [History] Alendronate Sodium 70 mg [Fosamax 70 MG] 1 each PO WEEKLY 03/05/22 [History] Ergocalciferol (Vitamin D2) [Vitamin D2] 1 each PO WEEKLY 03/05/22 [History] Gabapentin [Neurontin ] 300 mg PO LUNCH 03/05/22 [History] Hydrocodone/Acetaminophen [Hydrocodone-Acetamin 7.5-325] 1 each PO Q4-6HPRN PRN 03/05/22 [History] Hx Tetanus, Diphtheria Vaccination/Date Given: No Hx Influenza Vaccination/Date Given: No Hx Pneumococcal Vaccination/Date Given: No Travel Risk - International Travel Have you traveled outside of the country in past 3 weeks: No - Emerging Infectious Disease Are you exhibiting symptoms associated with any current EIDs: No - Review of Systems Constitutional: No Symptoms Eyes: No Symptoms Ears, Nose, & Throat: No Symptoms Respiratory: No Symptoms Cardiac: No Symptoms Abdominal/Gastrointestinal: No Symptoms Genitourinary Symptoms: No Symptoms Musculoskeletal: No Symptoms Skin: No Symptoms Neurological: Other (Sharp shooting nerve pain right jaw and cheek) Psychological: No Symptoms Endocrine: No Symptoms Hematologic/Lymphatic: No Symptoms Immunological/Allergic: No Symptoms All Other Systems: Reviewed and Negative - Past Medical History Pertinent Past Medical History: Yes Neurological History: Other ENT History: Other Cardiac History: Arrhythmia Respiratory History: Asthma, COPD Endocrine Medical History: Diabetes Type II, Other Musculoskeletal History: Osteoarthritis, Osteoporosis GI Medical History: No Pertinent History History: Other Psycho-Social History: Depression Female Reproductive Disorders: No Pertinent History Other Medical History: MULTIPLE SCLEROSIS, SMOKER, TACHYCARDIA, - Past Surgical History Past Surgical History: Yes Neuro Surgical History: No Pertinent History Cardiac: No Pertinent History Respiratory: No Pertinent History Gastrointestinal: No Pertinent History Genitourinary: No Pertinent History Musculoskeletal: No Pertinent History, Orthopedic Surgery Female Surgical History: Hysterectomy Other Surgical History: pt had thyroidectomy also had surgery on stomach where she gave her self shots for ms area had a nodular area that needed removed,MRSA on stomach I&D. right hip sx - Social History Smoking Status: Current every day smoker How long have you smoked: 50 Exposure to second hand smoke: No Drug Use: none Patient Lives Alone: Yes - Nursing Vital Signs Nursing Vital Signs: Initial Vital Signs Temperature 97.3 F 04/11/24 00:07 Pulse Rate 65 04/11/24 00:07 Respiratory Rate 18 04/11/24 00:07 Blood Pressure 135/80 04/11/24 00:07 O2 Sat by Pulse Oximetry 97 04/11/24 00:07 Pain Scale Pain Intensity 2 - Physical Exam General Appearance: no apparent distress, alert, anxiety, obese Eye Exam: bilateral eye: normal inspection, PERRL, EOMI Ear Exam: bilateral ear: auricle normal Nasal Exam: normal inspection Throat Exam: moist mucus membranes (She is a dentulous) Neck Exam: normal inspection, non-tender, supple, full range of motion Cardiovascular/Respiratory Exam: chest non-tender, no respiratory distress Abdominal Exam: non-tender Neurologic Exam: alert, oriented x 3, cooperative, 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 as tested, normal mood/affect Skin Exam: normal color, warm, dry SpO2 Interpretation: normal O2 Delivery: Room Air - Course Nursing assessment & vital signs reviewed: Yes Ordered Tests: Medication Summary Discontinued Medications Generic Name Dose Route Start Last Admin Trade Name Suzette PRN Reason Stop Dose Admin Amitriptyline HCl 25 mg 04/11/24 00:54 Amitriptyline Hcl 25 Mg Tablet PO 04/11/24 00:55 STAT ONE Methylprednisolone Sodium 0 mg 04/11/24 00:53 Succinate 125 mg/ Sterile IM 04/11/24 00:54 Water 2 ml STAT ONE Methylprednisolone Sodium Succinate Confirm 04/11/24 00:58 Methylprednis Sod Succ 125 Mg/2 Ml Vial Administered 04/11/24 00:59 Dose 125 mg .ROUTE .STK-MED ONE Sterile Water Confirm 04/11/24 00:58 Water For Injection,Sterile 10 Ml Vial Administered 04/11/24 00:59 Dose 10 ml IJ .STK-MED ONE - Progress Progress: improved, pain not gone completely Progress Note: 04/11/24 01:12 This patient's medical issue is 1 of low complexity. The level of complexity in the workup performed is based on review of the patient's past medical history, review of the patient's medication list, review of patient drug allergy list, history present illness and physical findings on examination. This patient's workup does not require laboratory radiographic studies. 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 Take your pain medication and other medications as prescribed.
[2024-04-11 00:19] VITALS: TEMP 97.3
[2024-04-11] MEDS ORDERED: solu-MEDROL ONE (00:58)
[2024-04-11] MEDS ORDERED: Sterile H2O 10 ml IJ ONE (00:58)
[2024-04-11] MEDS: AMITRIPTYLINE 25 MG TABLET PO ONE (01:35)
[2024-04-11] MEDS: solu-MEDROL 125 MG, Sterile H2O 10 ml 2 ML IM ONE (01:36)
[2024-04-11 02:09] VITALS: BP 118/77; PULSE 66; RESP 20; O2SAT 97
== END 2024-04-11 02:01 | disposition home or self-care (01) ==
LOC: ED 00:03
DX: G50.0 Trigeminal neuralgia (principal); R68.84 Jaw pain; E11.9 Type 2 diabetes mellitus without complications; Z79.84 Long term (current) use of oral hypoglycemic drugs; Z79.899 Other long term (current) drug therapy; Z72.0 Tobacco use
CPT/HCPCS: 96372; 99283; J2919; A9270-GY